=== PATIENT | male | born 1950 | race Caucasian/White ===

== ENCOUNTER 2017-05-19 02:30 | Inpatient (IN) | payer MEDICARE, SELFPAY ==
[2017-05-19] VITALS (21 sets, daily range): BP systolic 122–157; BP diastolic 81–99; PULSE 60–101; RESP 12–36; TEMP 36.4–37.2; O2SAT 75–98; BMI 26.1; BMI 25.7
--- NOTE | 2017-05-19 02:36 | EKG12_ITS ---
Test Reason : SOB Blood Pressure : / mmHG Vent. Rate : 090 BPM Atrial Rate : 090 BPM P-R Int : 220 ms QRS Dur : 096 ms QT Int : 382 ms P-R-T Axes : 059 139 024 degrees QTc Int : 467 ms Sinus rhythm with 1st degree A-V block Otherwise normal ECG Confirmed by AISHA SMALL [id number]), managing editor RADHA BAL ([id number] on 05/22/2017 1:40:07 PM Referred By: AM Confirmed By:AISHA SMALL
--- NOTE | 2017-05-19 02:41 | ED.DCSUM_ITS ---
- ER Visit Summary Date of Service: 05/19/17 Chief Complaint: [] Shortness of breath History of Present Illness: The patient is a 66 M [] complaining of shortness of breath beginning earlier tonight. Patient reports a history of COPD. Denies fevers. Denies chest pain. Denies use of home oxygen. Reports he recently underwent a cardiac catheterization that resulted in him getting no stents. Physical Examination: [] Vital signs: BP 157/95. Heart rate 101. Respiratory rate 26. Temperature 98.3. Pulse ox on room air 75%. This improved to 93 on 2 L nasal cannula. Elderly male in mild respiratory distress. Cardiovascular exam is regular rate and rhythm. Lungs show wheezing in all lung rodas. Abdomen is soft and nontender. No significant lower extremity edema. Test Results: [] EKG: Normal sinus rhythm, rate of 90. Chest x-ray: Negative per radiologist interpretation. Labs: CBC, BMP, troponin, BNP all within normal limits. Emergency Department Course and Treatment: [] Patient received 3 albuterol and one Atrovent aerosols upon arrival to the emergency department. Patient received 125 mg IV Solu-Medrol. This improved his respiratory rate however he still reported subjective dyspnea. He remained on 2 L nasal cannula after the aerosol treatments. His pulse ox stayed at 92%. He was ambulated without oxygen and dropped down to 86%. Case was discussed with the hospitalist who will admit the patient for further treatment and evaluation of COPD exacerbation. Treatment Plan: [] Admit to medical floor for COPD treatment. Disposition: [] Admit, stable. Impression: [] COPD exacerbation This note was generated with [employer] dictation software. It may contain incorrect words, spelling, and punctuation that were not noted in review of the chart prior to signing ED Disposition - Plan for ED Patient: Chief Complaint: Shortness of Breath Referrals: Jessenia Rios MD [Primary Care Provider] -
[2017-05-19] MEDS: Ipratropium/Albuterol Sulfate 3 ML AMPUL.NEB INHALATION ×6 (02:44→22:42)
[2017-05-19] MEDS: Albuterol 2.5 MG/3 ML VIAL.NEB. INHALATION ×3 (02:44→02:53)
--- NOTE | 2017-05-19 02:45 | RAD_ITS ---
STUDY: X-RAY CHEST REASON FOR EXAM: Male, 66 years old. Shortness of breath TECHNIQUE: Single frontal view COMPARISON: May 19, 2013 FINDINGS: There are chronic fibrotic changes of the lungs. There are NO acute infiltrates. There is NO pleural effusion or pneumothorax. There are calcified pleural plaque. Normal size heart. Normal mediastinum and jose. Normal visualized pulmonary arteries. Normal visualized aortic arch and descending thoracic aorta. Normal visualized thoracic spine. Normal visualized ribs, clavicles, and shoulders. There is no demonstrated abnormality of the visualized soft tissue structures of the upper abdomen. RAD/Chest 1 View (Portable) IMPRESSION: There are chronic fibrotic changes of the lungs. There are NO acute infiltrates. There is NO pleural effusion or pneumothorax. There are calcified pleural plaque. Normal size heart. Electronically Signed: Carlos Price MD at 3:36 EDT , Service support ,
[2017-05-19 02:48] LABS: Absolute Neutrophil Count 8.9 X10^3/uL (2.0-7.7); Basophil# 0.01 X10^3/uL; Basophil% 0.1 % (0-1); Hematocrit 41.6 % (40-54); Hemoglobin 12.7 g/dl (13.0-16.5); Lymphocyte % 6.7 % (19-41); Mean Corp Hgb Conc 30.5 g/gl (32-36); Mean Corpuscular Hgb 28.5 pg (27.0-32.0); Mean Corpuscular Volume 93.5 fL (80-94); Mean Platelet Vol. 10.9 fl (6.2-12.0); Monocyte# 0.74 X10^3/uL; Monocyte% 7.1 % (0-10); Neutrophil # 8.88 X10^3/uL (2.7-7.7); Neutrophil % 85.4 % (47-70); Platelet Count 201 K/mm3 (150-450); RBC Distribution Width CV 16.4 % (11.6-14.6); RBC Distribution Width SD 54.4 fl (35.1-43.9); Red Blood Count 4.45 M/mm3 (4.6-6.2); White Blood Count 10.4 K/mm3 (4.4-11.0)
[2017-05-19] MEDS: MethylPREDNISolone 125 MG/2 ML Vial IV (02:48)
[2017-05-19 02:49] LABS: POSITIVE COUNT NO; POSITIVE DIFFERENTIAL NO; POSITIVE MORPHOLOGY NO
[2017-05-19 03:08] LABS: Anion Gap 7 (5-15); BUN 22 mg/dL (7-18); BUN/Creat Ratio 22.1 RATIO (10-20); Calcium,Total 8.4 mg/dL (8.5-10.1); Chloride 96 mmol/L (98-107); EST Glomerular Filtration Rate 80 mL/min (>60); Est Glom Filt Rate - Afr Amer 97 mL/min (>60); Estimated Creatinine Clearance 71.25 ml/min; Glucose 94 mg/dL (74-106); Potassium 4.5 mmol/L (3.5-5.1); Sodium Level 135 mmol/L (136-145)
[2017-05-19 03:38] LABS: BNP,B-Type NATRIURETIC PEPTIDE 110.2 pg/mL (0-100)
--- NOTE | 2017-05-19 03:47 | PCM.HP.STD ---
Problem List (1) Chronic obstructive pulmonary disease Status: Chronic Qualifiers: COPD type: unspecified COPD Qualified Code(s): J44.9 - Chronic obstructive pulmonary disease, unspecified (2) CAD (coronary artery disease) Status: Chronic Qualifiers: Coronary Disease-Associated Artery/Lesion type: unspecified vessel or lesion type [place] vs. transplanted heart: unspecified whether [place] or transplanted heart Associated angina: angina presence unspecified Qualified Code(s): I25.10 - Atherosclerotic heart disease of [place] coronary artery without angina pectoris (3) CHF (congestive heart failure) Status: Chronic Qualifiers: Heart failure type: unspecified Heart failure chronicity: chronic Qualified Code(s): I50.9 - Heart failure, unspecified (4) Borderline type 2 diabetes mellitus Status: Chronic (5) PAF (paroxysmal atrial fibrillation) Status: Chronic (6) Acute exacerbation of chronic obstructive pulmonary disease (COPD) Status: Acute (7) Acute respiratory failure Status: Acute Qualifiers: Respiratory failure complication: hypoxia Qualified Code(s): J96.01 - Acute respiratory failure with hypoxia (8) Rheumatoid arthritis Status: Chronic Qualifiers: Rheumatoid arthritis location: unspecified site Rheumatoid factor presence: unspecified presence Qualified Code(s): M06.9 - Rheumatoid arthritis, unspecified (9) H/O asbestosis Status: Chronic History of Present Illness Date of Admission: 05/19/17 Chief Complaint: Dyspnea The patient is a 66 y/o M w/ PMHx: Chronic COPD w/ Asbestosis, CAD, CHF Unclear type, PAF, Rheumatoid Arthritis, Borderline Diabetes mellitus type II who presents to the [facility] ED on 05/19/17 with history of recent fever, chills, nausea, emesis with arthralgia, myalgia that lasted 24 hours ~ 1 week ago with improvement following but now onset over the last 2-3 days productive cough, dyspnea, wheezing, progressively worsening prior to ED presentation. In the ED work-up included T 98.3, HR 101-->97, RR 26-->32, 75% on RA initially-->93% on 2-3L NC, CBC w/ WBC 10.4, Hgb 12.7, Plts 201 with L shift, BMP w/ Na 135, Chl 96, BUN/Cr 22/1.0, glucose 94, trop 0.02, BNP 110.2, CXR with chronic changes. In the ED RR remained elevated, ABG requested per RT, given ongoing increased work of breathing, accessory muscle usage, conversational dyspnea BIPAP also requested. Viral respiratory panel pending additionally. INR ordered upon admission also. Past Medical History Past Medical History (Chronic Problems): Chronic Problems Chronic obstructive pulmonary disease (Chronic) CAD (coronary artery disease) (Chronic) CHF (congestive heart failure) (Chronic) Borderline type 2 diabetes mellitus (Chronic) PAF (paroxysmal atrial fibrillation) (Chronic) Rheumatoid arthritis (Chronic) H/O asbestosis (Chronic) Allergies No Known Allergies Allergy (Verified 05/19/17 02:31) Home Medications: Ambulatory Orders Medication Instructions Recorded Ergocalciferol [Vitamin D] 50,000 unit PO Q7D 05/19/13 Flecainide [Tambocor] 100 mg PO BID 05/19/13 Furosemide [Lasix] 40 mg PO DAILY 05/19/13 Hydroxychloroquine [Plaquenil] 200 mg PO BIDCM 05/19/13 Pantoprazole Sodium [Protonix] 40 mg PO DAILY 05/19/13 Potassium Chloride [K-Dur] 20 meq PO DAILY 05/19/13 PredniSONE 5 mg PO BID 05/19/13 Verapamil HCl [Verapamil ER] 240 mg PO DAILY 05/19/13 Warfarin [Coumadin] 4 mg PO DAILY 05/19/13 Acetaminophen [Acetaminophen ER] 650 mg PO PRN PRN 05/19/17 Albuterol IH (ProAir) [Proair Hfa 2 puff INHALATION Q4H PRN PRN 05/19/17 (SP)Vent Pts] Budesonide Inhaler 180 mcg 2 puff INHALATION BID 05/19/17 [Pulmicort Inhaler 180 mcg] Cyclobenzaprine [Flexeril] 10 mg PO TID PRN PRN 05/19/17 Flecainide [Tambocor] 50 mg PO BID 05/19/17 Gabapentin [Neurontin] 600 mg PO BIDCM 05/19/17 Warfarin [Coumadin (PBKC)] 6 mg PO QODAY 05/19/17 Surgical History: - - Notes calcium deposit removal otherwise no surgical history. Psychiatric History: No pertinent psych hx Lives: Spouse/ Significant Other Smoking Status: Former smoker - Quit~ 8 years prior, 1 ppd history prior. Tobacco Use: Non-smoker Alcohol: Rare Drugs: None - *Family History Maternal History Items: Cancer Paternal History Items: Diabetes, Pulmonary Disease Review of Systems Constitutional: Reports: Anorexia, Chills, Fever, Malaise, Weakness, Fatigue. Denies: Weight Change HEENT: Denies: Head Aches, Sinus Congestion, Sinus Drainage Cardiovascular: Denies: Chest Pain, Palpitations Respiratory: Reports: Cough, Shortness of Breath, Shortness of breath at rest, Shortness of breath upon exertion, Sputum production, Wheezing Gastrointestinal: Reports: Nausea, Vomiting. Denies: Abdominal Pain Genitourinary: Denies: Dysuria Musculoskeletal: Reports: Joint Pain, Joint stiffness, Joint swelling, Joint Tenderness, Muscle pain Skin: Denies: Rash, Wounds Neurological: Denies: Numbness, Tingling, Focal weakness Psychiatric: Denies: Anxiety, Depression, Homicidal Ideations, Suicidal Ideations Hematologic/ Lymphatic: Reports: Anemia, Easy Bruising, Easy Bleeding VTE Information - Inpt Only VTE Present on Admission: No VTE Mechan Device Prophylaxis: SCD's VTE Pharm Prophylaxis ordered?: No Reason prophylaxis not ordered:: Treatment Not Indicated Patient Problems: Active and Suspected Problems Acute exacerbation of chronic obstructive pulmonary disease (COPD) (Acute) Acute respiratory failure (Acute) Subjective: Seated upright in the ED bed, increased work of breathing, accessory muscle usage, conversational dyspnea. Objective: Physical Examination: General: awake, alert, oriented x 3 and cooperative, seated upright in the ED bed in no apparent distress. Skin: normal color, turgor, no icterus, cyanosis except diffuse BL UL extremity ecchymoses. HEENT: AT/NC, EOMI, PERRLA, mildly dry MM, no carotid bruits or JVD noted. Lungs: Diminished breath sounds, greater bases, coarse, expiratory and inspiratory wheezing, increased work of breathing, accessory muscle usage, conversational dyspnea, evidence respiratory distress. Heart: Regular rate and rhythm; no gallop, rub audible. Abdomen: soft, NTTP, ND, normal BS, no HSM. Extremities: no cyanosis, clubbing, arthritic joint disease evident. Neurological: patient awake, alert, oriented x 3; cognitive function intact; pupils equally reactive to light and accomodation; cranial nerves II-XII grossly normal, moving all 4 extremities, no focal deficits, strength severely globally decreased secondary to acute presentation. Psychiatric: affect appears fatigued, no acute evidence of depressive or anxiety feelings. - Physical Exam Vital Signs Temp Pulse Resp BP Pulse Ox 98.3 F 97 32 H 157/95 H 75 05/19/17 02:32 05/19/17 02:57 05/19/17 02:57 05/19/17 02:32 05/19/17 02:32 Oxygen Delivery Method Room Air Weight: 171 lb 15.369 oz Body Mass Index (BMI) 26.1 Laboratory Tests Past 24 Hrs 05/19/17 05/19/17 05/19/17 02:35 02:35 02:35 WBC 10.4 RBC 4.45 L Hgb 12.7 L Hct 41.6 MCV 93.5 MCH 28.5 MCHC 30.5 L RDW 16.4 H RDW Differential 54.4 H Plt Count 201 MPV 10.9 Immature Gran % (Auto) 0.700 Neut % (Auto) 85.4 H Lymph % (Auto) 6.7 L [place] % (Auto) 7.1 Eos % (Auto) 0.0 Baso % (Auto) 0.1 Absolute Neuts (auto) 8.9 H Absolute Lymphs (auto) 0.70 L Total Counted Not Reportable Sodium 135 L Potassium 4.5 Chloride 96 L Carbon Dioxide 32.0 Anion Gap 7 BUN 22 H Creatinine 1.00 Estim Creat Clear Calc 71.25 Est GFR (MDRD) Af Amer 97 Est GFR (MDRD) Non-Af 80 BUN/Creatinine Ratio 22.1 H Glucose 94 Calcium 8.4 L Troponin I 0.02 B-Natriuretic Peptide 110.2 H Assessment/Plan Active and Suspected Problems Acute exacerbation of chronic obstructive pulmonary disease (COPD) (Acute) Acute respiratory failure (Acute) The patient is a 66 y/o M w/ PMHx: Chronic COPD, CAD, CHF Unclear type, PAF, Rheumatoid Arthritis, Borderline Diabetes mellitus type II who presents to the [facility] ED on 05/19/17 with history of recent fever, chills, nausea, emesis with arthralgia, myalgia that lasted 24 hours ~ 1 week ago with improvement following but now onset over the last 2-3 days productive cough, dyspnea, wheezing, progressively worsening prior to ED presentation. (1) Acute Hypoxic Respiratory Failure with Acute on chronic COPD exacerbation: CXR w/ chronic changes, CBC on admission w/ WBC 10.4 with L shift. Will admit to MS, requested ABG in the ED, given presentation and concern for fatigue will initiate BIPAP with NC transition once appropriate, maintain on oxygen with wean as tolerated to room air, continue ATC duonebs, PRN albuterol, IV methylprednisolone with prednisone transition, HOB, IS parameters, IV Azithromcyin with pending sputum cultures, respiratory viral panel pending. (2) CAD: No PCI history. Maintain on home coumadin regimen, INR pending, not on BB but no verapamil, not on statin, unclear reason why. Recent (3) PAF: Maintain on home regimen tambocor, verapamil, coumadin w/ INR pending, trend. (4) Chronic CHF, Unclear Type: Compensated, CXR with chronic changes, maintain on coumadin, not on statin, not on ACEI/ARB, not on BB (on verapamil), lasix. (5) Borderline Diabetes mellitus type II: Admission glucose 94, given steroid usage, maintain on ADA diet, accu checks, ISS. (6) Rheumatoid Arthritis: Hold oral prednisone given IV solumedrol, continue plaquenil. (7) DVT Prophylaxis: SCDs, coumadin w/ INR trending. Code Visit Inpatient E&M: 89294 Init Hosp L3
--- NOTE | 2017-05-19 03:59 | HP.PCM_ITS ---
Problem List (1) Chronic obstructive pulmonary disease Status: Chronic Qualifiers: COPD type: unspecified COPD Qualified Code(s): J44.9 - Chronic obstructive pulmonary disease, unspecified (2) CAD (coronary artery disease) Status: Chronic Qualifiers: Coronary Disease-Associated Artery/Lesion type: unspecified vessel or lesion type [place] vs. transplanted heart: unspecified whether [place] or transplanted heart Associated angina: angina presence unspecified Qualified Code(s): I25.10 - Atherosclerotic heart disease of [place] coronary artery without angina pectoris (3) CHF (congestive heart failure) Status: Chronic Qualifiers: Heart failure type: unspecified Heart failure chronicity: chronic Qualified Code(s): I50.9 - Heart failure, unspecified (4) Borderline type 2 diabetes mellitus Status: Chronic (5) PAF (paroxysmal atrial fibrillation) Status: Chronic (6) Acute exacerbation of chronic obstructive pulmonary disease (COPD) Status: Acute (7) Acute respiratory failure Status: Acute Qualifiers: Respiratory failure complication: hypoxia Qualified Code(s): J96.01 - Acute respiratory failure with hypoxia (8) Rheumatoid arthritis Status: Chronic Qualifiers: Rheumatoid arthritis location: unspecified site Rheumatoid factor presence : unspecified presence Qualified Code(s): M06.9 - Rheumatoid arthritis, unspecified (9) H/O asbestosis Status: Chronic History of Present Illness Date of Admission: 05/19/17 Chief Complaint: Dyspnea The patient is a 66 y/o M w/ PMHx: Chronic COPD w/ Asbestosis, CAD, CHF Unclear type, PAF, Rheumatoid Arthritis, Borderline Diabetes mellitus type II who presents to the [facility] ED on 05/19/17 with history of recent fever, chills, nausea, emesis with arthralgia, myalgia that lasted 24 hours ~ 1 week ago with improvement following but now onset over the last 2-3 days productive cough, dyspnea, wheezing, progressively worsening prior to ED presentation. In the ED work-up included T 98.3, HR 101-->97, RR 26-->32, 75% on RA initially-->93% on 2 -3L NC, CBC w/ WBC 10.4, Hgb 12.7, Plts 201 with L shift, BMP w/ Na 135, Chl 96 , BUN/Cr 22/1.0, glucose 94, trop 0.02, BNP 110.2, CXR with chronic changes. In the ED RR remained elevated, ABG requested per RT, given ongoing increased work of breathing, accessory muscle usage, conversational dyspnea BIPAP also requested. Viral respiratory panel pending additionally. INR ordered upon admission also. Past Medical History Past Medical History (Chronic Problems): Chronic Problems Chronic obstructive pulmonary disease (Chronic) CAD (coronary artery disease) (Chronic) CHF (congestive heart failure) (Chronic) Borderline type 2 diabetes mellitus (Chronic) PAF (paroxysmal atrial fibrillation) (Chronic) Rheumatoid arthritis (Chronic) H/O asbestosis (Chronic) Allergies No Known Allergies Allergy (Verified 05/19/17 02:31) Home Medications: Ambulatory Orders Medication Instructions Recorded Ergocalciferol [Vitamin D] 50,000 unit PO Q7D 05/19/13 Flecainide [Tambocor] 100 mg PO BID 05/19/13 Furosemide [Lasix] 40 mg PO DAILY 05/19/13 Hydroxychloroquine [Plaquenil] 200 mg PO BIDCM 05/19/13 Pantoprazole Sodium [Protonix] 40 mg PO DAILY 05/19/13 Potassium Chloride [K-Dur] 20 meq PO DAILY 05/19/13 PredniSONE 5 mg PO BID 05/19/13 Verapamil HCl [Verapamil ER] 240 mg PO DAILY 05/19/13 Warfarin [Coumadin] 4 mg PO DAILY 05/19/13 Acetaminophen [Acetaminophen ER] 650 mg PO PRN PRN 05/19/17 Albuterol IH (ProAir) [Proair Hfa 2 puff INHALATION Q4H PRN PRN 05/19/17 (SP)Vent Pts] Budesonide Inhaler 180 mcg 2 puff INHALATION BID 05/19/17 [Pulmicort Inhaler 180 mcg] Cyclobenzaprine [Flexeril] 10 mg PO TID PRN PRN 05/19/17 Flecainide [Tambocor] 50 mg PO BID 05/19/17 Gabapentin [Neurontin] 600 mg PO BIDCM 05/19/17 Warfarin [Coumadin (PBKC)] 6 mg PO QODAY 05/19/17 Surgical History: - - Notes calcium deposit removal otherwise no surgical history. Psychiatric History: No pertinent psych hx Lives: Spouse/ Significant Other Smoking Status: Former smoker - Quit~ 8 years prior, 1 ppd history prior. Tobacco Use: Non-smoker Alcohol: Rare Drugs: None - *Family History Maternal History Items: Cancer Paternal History Items: Diabetes, Pulmonary Disease Review of Systems Constitutional: Reports: Anorexia, Chills, Fever, Malaise, Weakness, Fatigue. Denies: Weight Change HEENT: Denies: Head Aches, Sinus Congestion, Sinus Drainage Cardiovascular: Denies: Chest Pain, Palpitations Respiratory: Reports: Cough, Shortness of Breath, Shortness of breath at rest, Shortness of breath upon exertion, Sputum production, Wheezing Gastrointestinal: Reports: Nausea, Vomiting. Denies: Abdominal Pain Genitourinary: Denies: Dysuria Musculoskeletal: Reports: Joint Pain, Joint stiffness, Joint swelling, Joint Tenderness, Muscle pain Skin: Denies: Rash, Wounds Neurological: Denies: Numbness, Tingling, Focal weakness Psychiatric: Denies: Anxiety, Depression, Homicidal Ideations, Suicidal Ideations Hematologic/ Lymphatic: Reports: Anemia, Easy Bruising, Easy Bleeding VTE Information - Inpt Only VTE Present on Admission: No VTE Mechan Device Prophylaxis: SCD's VTE Pharm Prophylaxis ordered?: No Reason prophylaxis not ordered:: Treatment Not Indicated Patient Problems: Active and Suspected Problems Acute exacerbation of chronic obstructive pulmonary disease (COPD) (Acute) Acute respiratory failure (Acute) Subjective: Seated upright in the ED bed, increased work of breathing, accessory muscle usage, conversational dyspnea. Objective: Physical Examination: General: awake, alert, oriented x 3 and cooperative, seated upright in the ED bed in no apparent distress. Skin: normal color, turgor, no icterus, cyanosis except diffuse BL UL extremity ecchymoses. HEENT: AT/NC, EOMI, PERRLA, mildly dry MM, no carotid bruits or JVD noted. Lungs: Diminished breath sounds, greater bases, coarse, expiratory and inspiratory wheezing, increased work of breathing, accessory muscle usage, conversational dyspnea, evidence respiratory distress. Heart: Regular rate and rhythm; no gallop, rub audible. Abdomen: soft, NTTP, ND, normal BS, no HSM. Extremities: no cyanosis, clubbing, arthritic joint disease evident. Neurological: patient awake, alert, oriented x 3; cognitive function intact; pupils equally reactive to light and accomodation; cranial nerves II-XII grossly normal, moving all 4 extremities, no focal deficits, strength severely globally decreased secondary to acute presentation. Psychiatric: affect appears fatigued, no acute evidence of depressive or anxiety feelings. - Physical Exam Vital Signs Temp Pulse Resp BP Pulse Ox 98.3 F 97 32 H 157/95 H 75 05/19/17 02:32 05/19/17 02:57 05/19/17 02:57 05/19/17 02:32 05/19/17 02:32 Oxygen Delivery Method Room Air Weight: 171 lb 15.369 oz Body Mass Index (BMI) 26.1 Laboratory Tests Past 24 Hrs 05/19/17 05/19/17 05/19/17 02:35 02:35 02:35 WBC 10.4 RBC 4.45 L Hgb 12.7 L Hct 41.6 MCV 93.5 MCH 28.5 MCHC 30.5 L RDW 16.4 H RDW Differential 54.4 H Plt Count 201 MPV 10.9 Immature Gran % (Auto) 0.700 Neut % (Auto) 85.4 H Lymph % (Auto) 6.7 L [place] % (Auto) 7.1 Eos % (Auto) 0.0 Baso % (Auto) 0.1 Absolute Neuts (auto) 8.9 H Absolute Lymphs (auto) 0.70 L Total Counted Not Reportable Sodium 135 L Potassium 4.5 Chloride 96 L Carbon Dioxide 32.0 Anion Gap 7 BUN 22 H Creatinine 1.00 Estim Creat Clear Calc 71.25 Est GFR (MDRD) Af Amer 97 Est GFR (MDRD) Non-Af 80 BUN/Creatinine Ratio 22.1 H Glucose 94 Calcium 8.4 L Troponin I 0.02 B-Natriuretic Peptide 110.2 H Assessment/Plan Active and Suspected Problems Acute exacerbation of chronic obstructive pulmonary disease (COPD) (Acute) Acute respiratory failure (Acute) The patient is a 66 y/o M w/ PMHx: Chronic COPD, CAD, CHF Unclear type, PAF, Rheumatoid Arthritis, Borderline Diabetes mellitus type II who presents to the [facility] ED on 05/19/17 with history of recent fever, chills, nausea, emesis with arthralgia, myalgia that lasted 24 hours ~ 1 week ago with improvement following but now onset over the last 2-3 days productive cough, dyspnea, wheezing, progressively worsening prior to ED presentation. (1) Acute Hypoxic Respiratory Failure with Acute on chronic COPD exacerbation: CXR w/ chronic changes, CBC on admission w/ WBC 10.4 with L shift. Will admit to MS, requested ABG in the ED, given presentation and concern for fatigue will initiate BIPAP with NC transition once appropriate, maintain on oxygen with wean as tolerated to room air, continue ATC duonebs, PRN albuterol, IV methylprednisolone with prednisone transition, HOB, IS parameters, IV Azithromcyin with pending sputum cultures, respiratory viral panel pending. (2) CAD: No PCI history. Maintain on home coumadin regimen, INR pending, not on BB but no verapamil, not on statin, unclear reason why. Recent (3) PAF: Maintain on home regimen tambocor, verapamil, coumadin w/ INR pending, trend. (4) Chronic CHF, Unclear Type: Compensated, CXR with chronic changes, maintain on coumadin, not on statin, not on ACEI/ARB, not on BB (on verapamil), lasix. (5) Borderline Diabetes mellitus type II: Admission glucose 94, given steroid usage, maintain on ADA diet, accu checks, ISS. (6) Rheumatoid Arthritis: Hold oral prednisone given IV solumedrol, continue plaquenil. (7) DVT Prophylaxis: SCDs, coumadin w/ INR trending. Code Visit Inpatient E&M: 80325 Init Hosp L3
[2017-05-19 04:05] LABS: International Normalized Ratio 2.5; Prothrombin Time (Protime)PT. 26.9 SECONDS (11.7-14.9)
[2017-05-19 04:26] LABS: Base Excess 7 mmol/L (-2 to +2); Bicarbonate 30.9 mmol/L (22-26); Blood Gas Specimen Type ART; O2 Delivery Device Nasal Can; PO2 73 mmHG (75-100); SITE L Brachial; SO2 95 % (95-99); Total Carbon Dioxide 32 mmol/L; pCO2 44.1 mmHg (35-45); pH 7.45 (7.35-7.45)
[2017-05-19 05:16] LABS: Bedside Glucose 101 mg/dL (70-110)
[2017-05-19] MEDS: Acetaminophen 325 MG Tablet 650 MG PO ×2 (05:24→21:38)
[2017-05-19] MEDS: CLARIFY ORDER 1 EACH NOTE (06:33)
[2017-05-19] MEDS: Glucerna Shake 120 ML LIQUID PO ×2 (08:29→16:51)
[2017-05-19] MEDS: Gabapentin 300 MG Capsule 600 MG PO ×2 (08:29→16:51)
[2017-05-19] MEDS: guaiFENesin 1,200 MG Tablet 1200 MG PO ×2 (08:30→21:30)
[2017-05-19] MEDS: Hydroxychloroquine 200 MG Tablet PO ×2 (08:30→16:51)
[2017-05-19] MEDS: Furosemide 40 MG Tablet PO (08:30)
[2017-05-19] MEDS: Flecainide 100 MG Tablet PO (08:30)
[2017-05-19] MEDS: Flecainide 100 MG Tablet 50 MG PO (08:30)
[2017-05-19] MEDS: Pantoprazole Sodium 40 MG Tablet PO (08:30)
[2017-05-19] MEDS: Verapamil SR 240 MG Tablet PO (08:31)
--- NOTE | 2017-05-19 11:07 | CASEMGMT ---
KELLY VALDEZ Face to Face with patient for initial transition planning/care coordination assessment. KELLY VALDEZ introduced self and role at [facility]. Patient sitting in chair, alert and oriented. Patient willing to participate in assessment and is able to answer all questions appropriately. Care providers, pharmacy, and demographics verified. See link attached. Patient wishes to discharge home, denies need for home health at this time. Patient states that he see model and mold maker Conchita Puentes at [facility] and has an appt in 2 weeks. Patient states his preferred DME company is [employer]. KELLY VALDEZ will continue to monitor for need for home oxygen. Patient states he has no further needs or concerns at this time. CM to follow for discharge planning needs that may arise. Disposition Plan: Patient to return home with family support and follow-up plans in place.
[2017-05-19] MEDS: Oseltamivir Phosphate 75 MG Capsule PO ×2 (12:19→21:30)
[2017-05-19 12:30] LABS: Bedside Glucose 192 mg/dL (70-110)
--- NOTE | 2017-05-19 15:12 | PCM.PROGNOTE ---
Patient Problems: Active and Suspected Problems Acute exacerbation of chronic obstructive pulmonary disease (COPD) (Acute) Acute respiratory failure (Acute) Subjective: Patient is a 66-year-old male with severe rheumatoid arthritis, COPD, history of asbestosis, chronic congestive heart failure, borderline diabetes mellitus type 2, PAF and chronic anticoagulation with Warfarin who presented to the [facility] emergency department on 316 of shortness of breath associated with cough, fever/chills, nausea/vomiting and myalgias/arthralgias. The cough was productive of brownish sputum. Vital signs in the emergency were temp 98.3, heart rate 101, respiratory rate 26-32, room air pulse ox of 75% on RA. He does not wear O2 at home and he does not have EMANI. CXR showed no acute infiltrates but did show calcified pleural plaques and evidence of chronic scarring. He was admitted to the hospital with a diagnosis of acute hypoxic respiratory failure, acute exacerbation of COPD. He was placed on BiPAP and ordered pbpguw-puw-jbyir aerosols, intravenous Solu-Medrol, azithromycin. Respiratory panel was positive for influenza B. He was started on Tamiflu. He tells me that he had nausea/vomiting/diarrhea approximately 7-10 days ago. He denies sore throat, runny nose, watery eyes, muscle aches and pains in excess of his baseline. Thinks his breathing is a little better since the oxygen has been placed on him. He does not routinely wear oxygen at home. He denies sleep apnea but has not been tested and he is not currently following with a student. He is c/o severe DACOSTA today. - Physical Exam General: Alert, Oriented x3, Cooperative, No apparent distress HEENT: Atraumatic, PERRLA, Normocephalic Oral: Moist Mucosa Neck: Supple, Negative Carotid Bruits, No Nodes, Trachea Midline Lungs: No rales, Diminished, Wheezes, - - He is not tachypneic at rest but gets tachypneic and short of breath when ambulating to the bathroom. He has no conversational dyspnea at rest and no accessory muscle use. There is increased AP diameter of the chest. Cardiovascular: Regular rate, Regular Rhythm, Normal S1, Normal S2, - - Distant heart sounds Abdomen: Bowel Sounds Present, Soft, Non Tender, Non-Distended Extremities: No clubbing, No cyanosis, No edema, - - He has severe deformities of his hands secondary to rheumatoid arthritis Skin: No rashes Neurological: Cranial nerves II-XII grossly intact Psych/Mental Status: Normal Affect, Appropriate Vital Signs Temp Pulse Resp BP Pulse Ox 98.5 F 89 16 143/95 H 98 05/19/17 08:20 05/19/17 10:56 05/19/17 10:56 05/19/17 08:20 05/19/17 08:20 Oxygen Flow Rate (L/min) 2 Oxygen Delivery Method Nasal Cannula Weight: 169 lb 5.04 oz Body Mass Index (BMI) 25.7 Intake and Output for Last 24 Hours 05/17/17 05/18/17 05/19/17 23:59 23:59 23:59 Intake Total 300 / 300 Balance 300 / 300 Microbiology Past 72 Hours 05/19/17 05:35 Respiratory Panel (PCR) - Final Mucosa - Nasopharyngeal Influenzae B Laboratory Tests Past 24 Hrs 05/19/17 04:19 Specimen Type ART Sample Site L Brachial pH 7.45 Bicarbonate Actual 30.9 H POC Total CO2 32 Base Excess 7 H O2 Saturation 95 ABG pCO2 44.1 ABG pO2 73 L O2 Delivery Device Nasal Can Liter Flow 3.0 Blood Gas Notified Whom HOSP POC Glucose 05/19/17 05/19/17 12:13 05:10 POC Glucose 192 H 101 Medical Necessity - Tobacco Use Smoking Status: Former smoker Tobacco Use: Non-smoker, Cigarettes Assessment/Plan Active and Suspected Problems Acute exacerbation of chronic obstructive pulmonary disease (COPD) (Acute) Acute respiratory failure (Acute) Impressions 1. Acute respiratory failure with hypoxemia 2. Acute exacerbation of COPD 3. COPD 4. Asbestosis 5. RA 6. Suspected pulmonary fibrosis 7. PAF - on flecainide 8. Borderline DM II - Blood sugars are all less than 200 9. reported hx of CHF 10. Influenza B continue the azithromycin for 3 days Continue Solu-Medrol, cfxezp-oiq-ldrin aerosols, incentive spirometry, BiPAP anytime he is sleeping more short of breath. Does not wear oxygen at home and has not had pulmonary function tests recently or a sleep study. We will need to follow-up with pulmonary going forward. Check an echocardiogram on 05/22/2017 to evaluate the right heart. Supplemental oxygen to keep the oxygen saturation 90% or greater Suspect he will need oxygen at home but will perform ambulatory pulse ox prior to discharge Code Visit Inpatient E&M: 83769 Subs Hosp L2
--- NOTE | 2017-05-19 15:15 | PN_ITS ---
Patient Problems: Active and Suspected Problems Acute exacerbation of chronic obstructive pulmonary disease (COPD) (Acute) Acute respiratory failure (Acute) Subjective: Patient is a 66-year-old male with severe rheumatoid arthritis, COPD, history of asbestosis, chronic congestive heart failure, borderline diabetes mellitus type 2, PAF and chronic anticoagulation with Warfarin who presented to the [facility] emergency department on 316 of shortness of breath associated with cough, fever/chills, nausea/vomiting and myalgias/arthralgias. The cough was productive of brownish sputum. Vital signs in the emergency were temp 98.3, heart rate 101, respiratory rate 26-32, room air pulse ox of 75 % on RA. He does not wear O2 at home and he does not have EMANI. CXR showed no acute infiltrates but did show calcified pleural plaques and evidence of chronic scarring. He was admitted to the hospital with a diagnosis of acute hypoxic respiratory failure, acute exacerbation of COPD. He was placed on BiPAP and ordered jnaakc-ikr-dlmla aerosols, intravenous Solu-Medrol, azithromycin. Respiratory panel was positive for influenza B. He was started on Tamiflu. He tells me that he had nausea/vomiting/diarrhea approximately 7-10 days ago. He denies sore throat, runny nose, watery eyes, muscle aches and pains in excess of his baseline. Thinks his breathing is a little better since the oxygen has been placed on him. He does not routinely wear oxygen at home. 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 He is c/o severe DACOSTA today. - Physical Exam General: Alert, Oriented x3, Cooperative, No apparent distress HEENT: Atraumatic, PERRLA, Normocephalic Oral: Moist Mucosa Neck: Supple, Negative Carotid Bruits, No Nodes, Trachea Midline Lungs: No rales, Diminished, Wheezes, - - He is not tachypneic at rest but gets tachypneic and short of breath when ambulating to the bathroom. He has no conversational dyspnea at rest and no accessory muscle use. There is increased AP diameter of the chest. Cardiovascular: Regular rate, Regular Rhythm, Normal S1, Normal S2, - - Distant heart sounds Abdomen: Bowel Sounds Present, Soft, Non Tender, Non-Distended Extremities: No clubbing, No cyanosis, No edema, - - He has severe deformities of his hands secondary to rheumatoid arthritis Skin: No rashes Neurological: Cranial nerves II-XII grossly intact Psych/Mental Status: Normal Affect, Appropriate Vital Signs Temp Pulse Resp BP Pulse Ox 98.5 F 89 16 143/95 H 98 05/19/17 08:20 05/19/17 10:56 05/19/17 10:56 05/19/17 08:20 05/19/17 08:20 Oxygen Flow Rate (L/min) 2 Oxygen Delivery Method Nasal Cannula Weight: 169 lb 5.04 oz Body Mass Index (BMI) 25.7 Intake and Output for Last 24 Hours 05/17/17 05/18/17 05/19/17 23:59 23:59 23:59 Intake Total 300 / 300 Balance 300 / 300 Microbiology Past 72 Hours 05/19/17 05:35 Respiratory Panel (PCR) - Final Mucosa - Nasopharyngeal Influenzae B Laboratory Tests Past 24 Hrs 05/19/17 04:19 Specimen Type ART Sample Site L Brachial pH 7.45 Bicarbonate Actual 30.9 H POC Total CO2 32 Base Excess 7 H O2 Saturation 95 ABG pCO2 44.1 ABG pO2 73 L O2 Delivery Device Nasal Can Liter Flow 3.0 Blood Gas Notified Whom HOSP POC Glucose 05/19/17 05/19/17 12:13 05:10 POC Glucose 192 H 101 Medical Necessity - Tobacco Use Smoking Status: Former smoker Tobacco Use: Non-smoker, Cigarettes Assessment/Plan Active and Suspected Problems Acute exacerbation of chronic obstructive pulmonary disease (COPD) (Acute) Acute respiratory failure (Acute) Impressions 1. Acute respiratory failure with hypoxemia 2. Acute exacerbation of COPD 3. COPD 4. Asbestosis 5. RA 6. Suspected pulmonary fibrosis 7. PAF - on flecainide 8. Borderline DM II - Blood sugars are all less than 200 9. reported hx of CHF 10. Influenza B continue the azithromycin for 3 days Continue Solu-Medrol, czpuuk-syi-evqib aerosols, incentive spirometry, BiPAP anytime he is sleeping more short of breath. Does not wear oxygen at home and has not had pulmonary function tests recently or a sleep study. We will need to follow-up with pulmonary going forward. Check an echocardiogram on 05/22/2017 to evaluate the right heart. Supplemental oxygen to keep the oxygen saturation 90% or greater Suspect he will need oxygen at home but will perform ambulatory pulse ox prior to discharge Code Visit Inpatient E&M: [id number] Subs Hosp L2
[2017-05-19] MEDS: 0.9% NaCl Peripheral Flush Adult/Peds IV (15:28)
[2017-05-19 19:31] LABS: Bedside Glucose 144 mg/dL (70-110)
[2017-05-19 21:51] LABS: Bedside Glucose 168 mg/dL (70-110)
[2017-05-20] VITALS (18 sets, daily range): BP systolic 117–139; BP diastolic 79–87; PULSE 56–92; RESP 12–29; TEMP 36.5–36.8; O2SAT 96–100
[2017-05-20] MEDS: Ipratropium/Albuterol Sulfate 3 ML AMPUL.NEB INHALATION ×6 (02:48→23:48)
[2017-05-20 06:50] LABS: Bedside Glucose 135 mg/dL (70-110)
[2017-05-20] MEDS: Hydroxychloroquine 200 MG Tablet PO ×2 (07:59→17:14)
[2017-05-20] MEDS: Gabapentin 300 MG Capsule 600 MG PO ×2 (07:59→17:14)
[2017-05-20 09:07] LABS: Absolute Lymphocyte Count 0.23 X10^3/ul (0.83-4.51); Absolute Neutrophil Count 6.8 X10^3/uL (2.0-7.7); Hematocrit 37.6 % (40-54); Hemoglobin 11.3 g/dl (13.0-16.5); Lymphocyte # 0.23 X10^3/ul (4.0); Lymphocyte % 3.2 % (19-41); Mean Corp Hgb Conc 30.1 g/gl (32-36); Mean Corpuscular Hgb 28.1 pg (27.0-32.0); Mean Corpuscular Volume 93.5 fL (80-94); Mean Platelet Vol. 11.1 fl (6.2-12.0); Monocyte# 0.16 X10^3/uL; Monocyte% 2.2 % (0-10); Neutrophil # 6.81 X10^3/uL (2.7-7.7); Neutrophil % 94.5 % (47-70); Platelet Count 154 K/mm3 (150-450); RBC Distribution Width CV 15.8 % (11.6-14.6); RBC Distribution Width SD 54.5 fl (35.1-43.9); Red Blood Count 4.02 M/mm3 (4.6-6.2); White Blood Count 7.2 K/mm3 (4.4-11.0)
[2017-05-20 09:16] LABS: Differential Indicated SCAN CRITERIA MET; POSITIVE COUNT NO; POSITIVE DIFFERENTIAL YES; POSITIVE MORPHOLOGY NO
[2017-05-20 09:22] LABS: Anion Gap 8 (5-15); BUN 31 mg/dL (7-18); BUN/Creat Ratio 33.7 RATIO (10-20); Calcium,Total 8.1 mg/dL (8.5-10.1); Chloride 100 mmol/L (98-107); Creatinine, Serum 0.92 mg/dL (0.70-1.30); EST Glomerular Filtration Rate 87 mL/min (>60); Est Glom Filt Rate - Afr Amer 106 mL/min (>60); Estimated Creatinine Clearance 77.45 ml/min; Glucose 165 mg/dL (74-106); Potassium 4.6 mmol/L (3.5-5.1); Sodium Level 139 mmol/L (136-145)
[2017-05-20] MEDS: guaiFENesin 1,200 MG Tablet 1200 MG PO ×2 (11:13→22:15)
[2017-05-20] MEDS: Flecainide 100 MG Tablet 50 MG PO ×2 (11:13→22:15)
[2017-05-20] MEDS: 0.9% NaCl Peripheral Flush Adult/Peds IV (11:13)
[2017-05-20] MEDS: Verapamil SR 240 MG Tablet PO (11:14)
[2017-05-20] MEDS: Furosemide 40 MG Tablet PO (11:15)
[2017-05-20] MEDS: Oseltamivir Phosphate 75 MG Capsule PO ×2 (11:15→22:17)
[2017-05-20] MEDS: Pantoprazole Sodium 40 MG Tablet PO (11:15)
[2017-05-20 12:25] LABS: Bedside Glucose 160 mg/dL (70-110)
[2017-05-20] MEDS: Glucerna Shake 120 ML LIQUID PO ×2 (12:30→17:15)
--- NOTE | 2017-05-20 14:46 | PN_ITS ---
Patient Problems: Active and Suspected Problems Acute exacerbation of chronic obstructive pulmonary disease (COPD) (Acute) Acute respiratory failure (Acute) Subjective: Remains afebrile. Vital signs are stable. He is currently 100% saturated on BiPAP. He was 96% saturated on 2 L nasal cannula earlier today at rest. Still becomes significantly short of breath with even minimal exertion. Lab was personally reviewed. White blood cell count is 7.2 and the hemoglobin is 11.3 with platelets of 154,000. Electrolytes are within normal limits and the BUN is 31 with a creatinine of 0.92. Blood sugars are adequately controlled and there are no blood sugars greater than 200. Sputum culture appears to be normal respiratory adelina. He is on Tamiflu for Influenza B - Physical Exam General: Alert, Oriented x3, Cooperative, - - He is not tachypneic at rest but gets tachypneic even rolling over in bed Oral: Moist Mucosa Neck: Supple Lungs: No wheeze, Rales - in the bases - they are coarse and do not improve with deep breathing Cardiovascular: Regular rate, Regular Rhythm, Normal S1, Normal S2, No Gallop, - - distant heart sounds Abdomen: Bowel Sounds Present, Soft, Non Tender, Non-Distended Extremities: No clubbing, No cyanosis, No edema Skin: No rashes, No breakdown Musculoskeletal: - - marked deformity of the hands and the wrists due to RA Psych/Mental Status: Normal Affect, Appropriate Vital Signs Temp Pulse Resp BP Pulse Ox 98.0 F 84 21 H 118/82 H 100 05/20/17 14:01 05/20/17 14:18 05/20/17 14:18 05/20/17 14:01 05/20/17 14:01 Oxygen Flow Rate (L/min) 2 Oxygen Delivery Method Bi-pap Weight: 169 lb 5.04 oz Body Mass Index (BMI) 25.7 Intake and Output for Last 24 Hours 05/18/17 05/19/17 05/20/17 23:59 23:59 23:59 Intake Total 550 / 550 944 / 944 Balance 550 / 550 944 / 944 Microbiology Past 72 Hours 05/19/17 08:20 Gram Stain - Final Sputum, Expectorated/Coughed Respiratory Culture - Preliminary Appears to be normal respiratory adelina. Further studies to follow. 05/19/17 05:35 Respiratory Panel (PCR) - Final Mucosa - Nasopharyngeal Influenzae B Laboratory Tests Past 24 Hrs 05/20/17 05/20/17 08:40 08:40 WBC 7.2 RBC 4.02 L Hgb 11.3 L Hct 37.6 L MCV 93.5 MCH 28.1 MCHC 30.1 L RDW 15.8 H RDW Differential 54.5 H Plt Count 154 MPV 11.1 Immature Gran % (Auto) 0.100 Neut % (Auto) 94.5 H Lymph % (Auto) 3.2 L [place] % (Auto) 2.2 Eos % (Auto) 0.0 Baso % (Auto) 0.0 Absolute Neuts (auto) 6.8 Absolute Lymphs (auto) 0.23 L Total Counted Not Reportable Sodium 139 Potassium 4.6 Chloride 100 Carbon Dioxide 31.0 Anion Gap 8 BUN 31 H Creatinine 0.92 Estim Creat Clear Calc 77.45 Est GFR (MDRD) Af Amer 106 Est GFR (MDRD) Non-Af 87 BUN/Creatinine Ratio 33.7 H Glucose 165 H Calcium 8.1 L POC Glucose 05/20/17 05/20/17 05/19/17 12:23 06:36 21:36 POC Glucose 160 H 135 H 168 H 05/19/17 16:50 POC Glucose 144 H Medical Necessity - Tobacco Use Smoking Status: Former smoker Tobacco Use: Non-smoker Assessment/Plan Active and Suspected Problems Acute exacerbation of chronic obstructive pulmonary disease (COPD) (Acute) Acute respiratory failure (Acute) Impressions 1. Acute respiratory failure with hypoxemia 2. Acute exacerbation of COPD 3. COPD 4. Asbestosis 5. RA 6. Suspected pulmonary fibrosis 7. PAF - on flecainide 8. Borderline DM II - Blood sugars are all less than 200 9. reported hx of CHF 10. Influenza B continue the current treatment ambulatory pulse ox prior to DC check a BNP continue the Tamiflu Code Visit Inpatient E&M: 53013 Subs Hosp L2
[2017-05-20 17:25] LABS: Bedside Glucose 141 mg/dL (70-110)
[2017-05-20] MEDS: Acetaminophen 325 MG Tablet 650 MG PO (19:23)
[2017-05-20 22:50] LABS: Bedside Glucose 128 mg/dL (70-110)
[2017-05-21] VITALS (13 sets, daily range): BP systolic 113–134; BP diastolic 74–88; PULSE 68–82; RESP 12–26; TEMP 36.2–37.2; O2SAT 96–99
[2017-05-21] MEDS: Ipratropium/Albuterol Sulfate 3 ML AMPUL.NEB INHALATION ×6 (03:35→23:03)
[2017-05-21] MEDS: 0.9% NaCl Peripheral Flush Adult/Peds IV ×3 (06:48→15:11)
--- NOTE | 2017-05-21 07:00 | PN_ITS ---
Patient Problems: Active and Suspected Problems Acute exacerbation of chronic obstructive pulmonary disease (COPD) (Acute) Acute respiratory failure (Acute) Subjective: 66-year-old male with past medical history of severe rheumatoid arthritis, suspected interstitial lung disease/pulmonary fibrosis, COPD, CAD, accessible atrial fibrillation, history of asbestosis and chronic congestive heart failure who was admitted to the hospital with acute acute exacerbation COPD and respiratory insufficiency with hypoxemia. Not on oxygen at home. Has been told in the past he has 30% lung function. No PFT's for many years. Tested + for Influenza B. No CPAP at home. On Tamiflu. Had 3 days of Azithromycin. He has been afebrile since admission. VSS Cough is now more productive and the sputum is more clear and less yellow/brown No CP. Still c/o DACOSTA No hemoptysis and no hematuria - Physical Exam General: Alert, Oriented x3, Cooperative, No apparent distress - while at rest. Oral: Moist Mucosa, No Gingival or Mucosal Lesions/ Ulcerations Neck: Supple Lungs: Rales - in the bases, Wheezes - mild expiratory Cardiovascular: Regular rate, Regular Rhythm, Normal S1, Normal S2, No Gallop, - - no significant ectopy Abdomen: Bowel Sounds Present, Soft, Non Tender, Non-Distended Extremities: No cyanosis, No edema Skin: No rashes, No breakdown Psych/Mental Status: Normal Affect, Appropriate Vital Signs Temp Pulse Resp BP Pulse Ox 97.1 F L 71 19 H 132/88 H 97 05/21/17 04:00 05/21/17 04:00 05/21/17 04:00 05/21/17 04:00 05/21/17 04:00 Oxygen Flow Rate (L/min) 3 Oxygen Delivery Method Bi-pap Weight: 169 lb 5.04 oz Body Mass Index (BMI) 25.7 Intake and Output for Last 24 Hours 05/19/17 05/20/17 05/21/17 23:59 23:59 23:59 Intake Total 550 / 550 2444 / 2444 500 / 500 Output Total 600 / 600 300 / 300 Balance 550 / 550 1844 / 1844 200 / 200 Microbiology Past 72 Hours 05/19/17 08:20 Gram Stain - Final Sputum, Expectorated/Coughed Respiratory Culture - Preliminary Appears to be normal respiratory adelina. Further studies to follow. 05/19/17 05:35 Respiratory Panel (PCR) - Final Mucosa - Nasopharyngeal Influenzae B Laboratory Tests Past 24 Hrs 05/20/17 05/20/17 08:40 08:40 WBC 7.2 RBC 4.02 L Hgb 11.3 L Hct 37.6 L MCV 93.5 MCH 28.1 MCHC 30.1 L RDW 15.8 H RDW Differential 54.5 H Plt Count 154 MPV 11.1 Immature Gran % (Auto) 0.100 Neut % (Auto) 94.5 H Lymph % (Auto) 3.2 L [place] % (Auto) 2.2 Eos % (Auto) 0.0 Baso % (Auto) 0.0 Absolute Neuts (auto) 6.8 Absolute Lymphs (auto) 0.23 L Total Counted Not Reportable Sodium 139 Potassium 4.6 Chloride 100 Carbon Dioxide 31.0 Anion Gap 8 BUN 31 H Creatinine 0.92 Estim Creat Clear Calc 77.45 Est GFR (MDRD) Af Amer 106 Est GFR (MDRD) Non-Af 87 BUN/Creatinine Ratio 33.7 H Glucose 165 H Calcium 8.1 L POC Glucose 05/20/17 05/20/17 05/20/17 21:59 17:17 12:23 POC Glucose 128 H 141 H 160 H Medical Necessity - Tobacco Use Smoking Status: Former smoker Tobacco Use: Non-smoker Assessment/Plan Active and Suspected Problems Acute exacerbation of chronic obstructive pulmonary disease (COPD) (Acute) Acute respiratory failure (Acute) Impressions 1. Acute respiratory failure with hypoxemia 2. Acute exacerbation of COPD 3. COPD 4. Asbestosis 5. RA 6. Suspected pulmonary fibrosis 7. PAF - on flecainide 8. Borderline DM II - Blood sugars are all less than 200 9. reported hx of CHF 10. Influenza B Continue the IV steroids but decrease the frequency to Q12H continue aerosolized bronchodilators and BiPAP rests and with any time he is sleeping Will need ambulatory pulse ox prior to discharge and I suspect he is going to need home O2 Needs to follow-up with pulmonary medicine going forward for PFTs and PSG. Recheck BMP, CBC, PT/INR in a.m. DC telemetry DC Accu-Cheks. He is not requiring any significant insulin and all his blood sugars are less than 200.
[2017-05-21 07:01] LABS: Bedside Glucose 127 mg/dL (70-110)
[2017-05-21] MEDS: Glucerna Shake 120 ML LIQUID PO ×3 (08:47→16:58)
[2017-05-21] MEDS: Gabapentin 300 MG Capsule 600 MG PO ×2 (08:48→16:57)
[2017-05-21] MEDS: Hydroxychloroquine 200 MG Tablet PO ×2 (08:48→16:57)
[2017-05-21] MEDS: Furosemide 40 MG Tablet PO (10:30)
[2017-05-21] MEDS: Flecainide 100 MG Tablet 50 MG PO ×2 (10:30→22:06)
[2017-05-21] MEDS: Verapamil SR 240 MG Tablet PO (10:30)
[2017-05-21] MEDS: Pantoprazole Sodium 40 MG Tablet PO (10:31)
[2017-05-21] MEDS: Oseltamivir Phosphate 75 MG Capsule PO ×2 (10:31→22:06)
[2017-05-21] MEDS: guaiFENesin 1,200 MG Tablet 1200 MG PO ×2 (10:32→22:05)
[2017-05-21] MEDS: Acetaminophen 325 MG Tablet 650 MG PO ×2 (10:40→22:07)
[2017-05-21 12:15] LABS: Bedside Glucose 194 mg/dL (70-110)
[2017-05-21 16:45] LABS: Bedside Glucose 127 mg/dL (70-110)
[2017-05-22] VITALS (16 sets, daily range): BP systolic 120–141; BP diastolic 82–87; PULSE 59–76; RESP 12–24; TEMP 36.4–36.7; O2SAT 87–99
[2017-05-22 00:46] LABS: Bedside Glucose 148 mg/dL (70-110)
[2017-05-22] MEDS: Ipratropium/Albuterol Sulfate 3 ML AMPUL.NEB INHALATION ×5 (04:09→18:53)
[2017-05-22 06:18] LABS: Prothrombin Time (Protime)PT. 48.3 SECONDS (11.7-14.9)
[2017-05-22 06:31] LABS: Anion Gap 6 (5-15); BUN 32 mg/dL (7-18); BUN/Creat Ratio 40.9 RATIO (10-20); Calcium,Total 8.2 mg/dL (8.5-10.1); Chloride 98 mmol/L (98-107); Creatinine, Serum 0.78 mg/dL (0.70-1.30); EST Glomerular Filtration Rate 105 mL/min (>60); Est Glom Filt Rate - Afr Amer 128 mL/min (>60); Estimated Creatinine Clearance 91.35 ml/min; Glucose 128 mg/dL (74-106); Magnesium 2.4 mg/dL (1.6-2.6); Phosphorus 3.2 mg/dL (2.5-4.9); Potassium 4.6 mmol/L (3.5-5.1); Sodium Level 138 mmol/L (136-145)
[2017-05-22 06:40] LABS: Hematocrit 35.1 % (40-54); Hemoglobin 10.6 g/dl (13.0-16.5); Mean Corp Hgb Conc 30.2 g/gl (32-36); Mean Corpuscular Hgb 28.8 pg (27.0-32.0); Mean Corpuscular Volume 95.4 fL (80-94); Mean Platelet Vol. 11.5 fl (6.2-12.0); Platelet Count 140 K/mm3 (150-450); RBC Distribution Width CV 15.6 % (11.6-14.6); RBC Distribution Width SD 52.3 fl (35.1-43.9); Red Blood Count 3.68 M/mm3 (4.6-6.2); Scan Indicated on CBC? Y/N NO; White Blood Count 5.8 K/mm3 (4.4-11.0)
[2017-05-22 06:48] LABS: International Normalized Ratio 5.2
--- NOTE | 2017-05-22 06:51 | CPS ---
according to patient, patient off bipap at this time.
[2017-05-22] MEDS: Glucerna Shake 120 ML LIQUID PO ×3 (08:40→16:56)
[2017-05-22] MEDS: Hydroxychloroquine 200 MG Tablet PO ×2 (08:41→16:58)
[2017-05-22] MEDS: Gabapentin 300 MG Capsule 600 MG PO ×2 (08:41→16:58)
[2017-05-22] MEDS: Flecainide 100 MG Tablet 50 MG PO ×2 (08:41→22:11)
[2017-05-22] MEDS: Verapamil SR 240 MG Tablet PO (08:41)
[2017-05-22] MEDS: Furosemide 40 MG Tablet PO (08:42)
[2017-05-22] MEDS: Pantoprazole Sodium 40 MG Tablet PO (08:42)
--- NOTE | 2017-05-22 08:42 | CPS ---
patient doing PEP on own.
--- NOTE | 2017-05-22 09:35 | PN_ITS ---
Patient Problems: Active and Suspected Problems Acute exacerbation of chronic obstructive pulmonary disease (COPD) (Acute) Acute respiratory failure (Acute) Subjective: Chief complaint: Follow-up after admission for acute COPD exacerbation and acute respiratory failure. Patient seen and examined. No acute events overnight. He reported improvement of his shortness of breath, still complaining of cough but without any more yellow colored sputum. He did mention that he gets more short of breath upon ambulation. Denies fever chills. Denied chest pain or palpitations. He has been afebrile, heart rate and blood pressure stable, pulse ox is 96% on 2 L of oxygen. - Physical Exam General: Alert, Oriented x3, Cooperative, No apparent distress, - - Minimal shortness of breath. HEENT: Atraumatic, PERRLA Oral: Moist Mucosa, No Gingival or Mucosal Lesions/ Ulcerations Neck: Supple, No JVD, Negative Carotid Bruits, Trachea Midline, Thyroid Normal Size and Texture Lungs: No wheeze, No rales, Diminished, Rhonchi, - - Decreased breath sounds bilateral, scattered rhonchi. Cardiovascular: Regular rate, Regular Rhythm, Normal S1, Normal S2, No murmurs, PMI Normal Abdomen: Bowel Sounds Present, Soft, Non Tender, Non-Distended, No Hepato- splenomegaly Extremities: No clubbing, No cyanosis, No edema Skin: No rashes, No breakdown Lymphatic: No Cervical, Supraclavicular, or Inguinal Adenopathy Neurological: Cranial nerves II-XII grossly intact, Motor Exam 5/5 strength throughout Psych/Mental Status: Normal Affect, Appropriate Vital Signs Temp Pulse Resp BP Pulse Ox 97.9 F 73 20 H 141/87 H 99 05/22/17 08:32 05/22/17 08:32 05/22/17 08:47 05/22/17 08:32 05/22/17 08:32 Oxygen Flow Rate (L/min) 2 Oxygen Delivery Method Nasal Cannula Weight: 169 lb 5.04 oz Body Mass Index (BMI) 25.7 Intake and Output for Last 24 Hours 05/20/17 05/21/17 05/22/17 23:59 23:59 23:59 Intake Total 2444 / 2444 1800 / 1800 700 / 700 Output Total 600 / 600 600 / 600 Balance 1844 / 1844 1200 / 1200 700 / 700 Microbiology Past 72 Hours 03/16/18 08:20 Gram Stain - Final Sputum, Expectorated/Coughed Respiratory Culture - Final Presumptive C albicans 05/19/17 05:35 Respiratory Panel (PCR) - Final Mucosa - Nasopharyngeal Influenzae B Laboratory Tests Past 24 Hrs 05/22/17 05/22/17 05/22/17 05:20 05:20 05:20 WBC 5.8 RBC 3.68 L Hgb 10.6 L Hct 35.1 L MCV 95.4 H MCH 28.8 MCHC 30.2 L RDW 15.6 H RDW Differential 52.3 H Plt Count 140 L MPV 11.5 PT 48.3 H INR 5.2 H* Sodium 138 Potassium 4.6 Chloride 98 Carbon Dioxide 34.0 H Anion Gap 6 BUN 32 H Creatinine 0.78 Estim Creat Clear Calc 91.35 Est GFR (MDRD) Af Amer 128 Est GFR (MDRD) Non-Af 105 BUN/Creatinine Ratio 40.9 H Glucose 128 H Calcium 8.2 L Phosphorus 3.2 Magnesium 2.4 POC Glucose 05/21/17 05/21/17 05/21/17 21:54 16:39 12:03 POC Glucose 148 H 127 H 194 H Medical Necessity - Tobacco Use Smoking Status: Former smoker Tobacco Use: Non-smoker Assessment/Plan Active and Suspected Problems Acute exacerbation of chronic obstructive pulmonary disease (COPD) (Acute) Acute respiratory failure (Acute) This is a 66 years old male patient presented to the emergency room because of shortness of breath and he was found to have acute hypoxic respiratory failure due to acute COPD exacerbation which was triggered by influenza B in context of history of probable chronic lung disease secondary to rheumatoid arthritis and suspected obstructive sleep apnea. #1 acute hypoxic respiratory failure: Multifactorial but secondary mainly to acute COPD exacerbation and influenza B in addition to chronic lung disease/ lung fibrosis secondary to rheumatoid arthritis and asbestosis as well as suspected obstructive sleep apnea. He is on IV steroids, bronchodilators and Tamiflu. He completed 2 days of IV Zithromax. He reported slow improvement of his shortness of breath, he remained on oxygen at 2 L with pulse ox of 96%. Other vital signs are stable. Plan: Continue same treatment, pulmonology consult. #2 acute COPD exacerbation: He is on IV steroids and bronchodilators. Completed 3 days of IV Zithromax. Chest x-ray revealed chronic fibrotic changes without evidence of acute infiltrate, consolation or effusion. Plan to continue same treatment as above. #3 influenza B: He is on Tamiflu. Plan as above. #4 suspected chronic lung disease/lung fibrosis/asbestosis: Possible lung fibrosis secondary to rheumatoid arthritis as well as asbestosis. This is contributing to his acute hypoxic respiratory failure. Patient probably will need oxygen upon discharge. Plan for pulmonary consult as above. #5 suspected obstructive sleep apnea: Patient will need sleep study as outpatient. Pulmonology consulted. #6 rheumatoid arthritis: Continue Plaquenil and IV steroids. At home, he has been on prednisone for long time. #7 paroxysmal A. fib: Rate is controlled, continue flecainide for rate control. INR is 5.2, supratherapeutic. Plan to hold Coumadin tonight, repeat INR tomorrow morning. #8 CAD: Without history of cardiac interventions. Stable, no acute issues. He is not on any medications at this time. #9 DVT prophylaxis: INR is 5.2. This note was generated with [employer] dictation software. It may contain incorrect words, spelling, and punctuation that were not noted in checking the note before signing. Code Visit Inpatient E&M: 24175 Subs Hosp L2
[2017-05-22] MEDS: guaiFENesin 1,200 MG Tablet 1200 MG PO ×2 (09:44→22:12)
[2017-05-22] MEDS: Oseltamivir Phosphate 75 MG Capsule PO ×2 (09:44→22:12)
[2017-05-22] MEDS: 0.9% NaCl Peripheral Flush Adult/Peds IV (09:46)
--- NOTE | 2017-05-22 09:51 | PCM.CONS.GEN ---
Problem List (1) CAD (coronary artery disease) Status: Chronic Qualifiers: Coronary Disease-Associated Artery/Lesion type: unspecified vessel or lesion type [place] vs. transplanted heart: unspecified whether crow or transplanted heart Associated angina: angina presence unspecified Qualified Code(s): I25.10 - Atherosclerotic heart disease of crow coronary artery without angina pectoris (2) CHF (congestive heart failure) Status: Chronic Qualifiers: Heart failure type: unspecified Heart failure chronicity: chronic Qualified Code(s): I50.9 - Heart failure, unspecified (3) Borderline type 2 diabetes mellitus Status: Chronic (4) PAF (paroxysmal atrial fibrillation) Status: Chronic (5) Acute respiratory failure Status: Acute Qualifiers: Respiratory failure complication: hypoxia Qualified Code(s): J96.01 - Acute respiratory failure with hypoxia (6) Rheumatoid arthritis Status: Chronic Qualifiers: Rheumatoid arthritis location: unspecified site Rheumatoid factor presence: unspecified presence Qualified Code(s): M06.9 - Rheumatoid arthritis, unspecified (7) H/O asbestosis Status: Chronic Reason for Consult Date of Consultation: 05/22/17 Reason for Consultation: COPD exacerbation, pulmonary fibrosis secondary RA? EMANI History of Present Illness: The patient is a 66 year old M as below who presented to the ER 05/19/17 points of progressive shortness of breath for several hours prior to presentation. Patient tried taking his Symbicort inhaler and albuterol several times with no relief. He has had an increase in cough and sputum production, mostly white to yellow. Patient denies any recent sick contacts, however he has been to multiple doctors appointments and had recent heart cath 2 weeks ago at [facility], ordered by his language pathologist. He required no intervention. He denies any recent fevers, chills, chest pain, nausea, vomiting, or diarrhea. Initial vital signs blood pressure 157/95, pulse 101, RR 26, afebrile at 98.3?F, and hypoxic at 75% on room air. The patient was placed on 2 L of oxygen supplementation and improved to 93%. Patient was given aerosols and stress dose IV Solu-Medrol which subjectively improved his breathing. Patient was ambulated on room air and desaturated to 86%, it was felt he would benefit from admission. Initial blood work showed no leukocytosis, hemoglobin 12.7. INR was 2.5, patient anticoagulated secondary to possibly pulmonary hypertension? Sodium was 135 and chloride 96, BUN 22 and creatinine 1.0. BNP was 110. Troponin was negative. An ABG was drawn on 3 L of oxygen and showed a pH of 7.45, PCO2 44.1, PO2 73, and bicarb 30.9. Chest x-ray showed chronic fibrotic changes in the lungs, no acute infiltrates and no pleural effusion or pneumothorax. There were calcified pleural plaques. Blood cultures have shown no growth in 48 hours. His respiratory panel was positive for influenza B and sputum culture presumptive C albicans. He has been on BiPAP intermittently while hospitalized. Patient reports he follows with Dr. Puentes at [facility] pulmonology since November 2016. He has been on Symbicort for quite some time, uses albuterol MDI as needed. He has never required any home oxygen supplementation. He has a history of tobacco abuse and quit 8 years ago with a 25-vbrd-sasb history. 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 He has had no exposure to TB that he is aware of. He has however had exposure to asbestos, which is evidenced on his chest imaging. He is up-to-date on his colonoscopy, last one 3-4 years ago which was normal. He denies any history of hemoptysis, orthopnea, or paroxysmal nocturnal dyspnea. He does have nocturia and daytime sleepiness. He has been told he likely has sleep apnea but has never underwent formal evaluation. Patient denies previous pulmonary function tests, however we will request his records from [facility] to verify. Patient has been told he has COPD. He does have advanced rheumatoid arthritis and has been on chronic prednisone 10 mg and Plaquenil for the last 8 years. He is able to ambulate with a cane, however gets dyspneic on exertion with moderate activity. He is unable to climb a flight of stairs without stopping several times, however this is partly due to his arthritis. Past Medical History Past Medical History (Chronic Problems): Chronic Problems Chronic obstructive pulmonary disease (Chronic) CAD (coronary artery disease) (Chronic) CHF (congestive heart failure) (Chronic) Borderline type 2 diabetes mellitus (Chronic) PAF (paroxysmal atrial fibrillation) (Chronic) Rheumatoid arthritis (Chronic) H/O asbestosis (Chronic) Allergies No Known Allergies Allergy (Verified 05/19/17 02:31) Home Medications: Ambulatory Orders Medication Instructions Recorded Ergocalciferol [Vitamin D] 50,000 unit PO Q7D 05/19/13 Furosemide [Lasix] 40 mg PO DAILY 05/19/13 Hydroxychloroquine [Plaquenil] 200 mg PO BIDCM 05/19/13 Pantoprazole Sodium [Protonix] 40 mg PO DAILY 05/19/13 Potassium Chloride [K-Dur] 20 meq PO DAILY 05/19/13 PredniSONE 5 mg PO BID 05/19/13 Verapamil HCl [Verapamil ER] 240 mg PO DAILY 05/19/13 Warfarin [Coumadin] 4 mg PO [id number] 05/19/13 Acetaminophen [Acetaminophen ER] 650 mg PO PRN PRN 05/19/17 Albuterol IH (ProAir) [Proair Hfa 2 puff INHALATION Q4H PRN PRN 05/19/17 (SP)Vent Pts] Budesonide Inhaler 180 mcg 2 puff INHALATION BID 05/19/17 [Pulmicort Inhaler 180 mcg] Cyclobenzaprine [Flexeril] 10 mg PO TID PRN PRN 05/19/17 Flecainide [Tambocor] 50 mg PO BID 05/19/17 Gabapentin [Neurontin] 600 mg PO BIDCM 05/19/17 Nitroglycerin [Nitrostat] 0.4 mg SUBLINGUAL PRN PRN 05/19/17 Spironolactone [Aldactone] 25 mg PO DAILY 05/19/17 Warfarin [Coumadin (PBKC)] 6 mg PO JORDAN 05/19/17 Surgical History: - - Notes calcium deposit removal otherwise no surgical history. Psychiatric History: No pertinent psych hx Lives: Spouse/ Significant Other Smoking Status: Former smoker - 90-tssp-cdwg history Tobacco Use: Non-smoker Alcohol: Rare Drugs: None - *Family History Maternal History Items: Cancer Paternal History Items: Diabetes, Pulmonary Disease Review of Systems Constitutional: Reports: Fatigue. Denies: Anorexia, Chills, Fever, Night Sweats, Malaise, Weakness, Weight Change Eyes: Denies: Vision Change HEENT: Reports: Head Aches. Denies: Difficulty Swallowing, Nasal bleeding, Post Nasal Drip, Sore Throat Cardiovascular: Reports: Edema - Resolved. Denies: Chest Pain, Chest Tightness, Light Headedness, Orthopnea, Palpitations, Paroxysmal Noc. Dyspnea, Syncope Respiratory: Reports: Cough, Shortness of breath upon exertion, Sputum production, Wheezing. Denies: Hemoptysis, Pleuritic Pain, Shortness of breath at rest Gastrointestinal: Denies: Abdominal Pain, Constipation, Diarrhea, Dyspepsia, Hematemesis, Hematochezia, Nausea, Melena, Vomiting Genitourinary: Reports: Nocturia. Denies: Dysuria, Frequency, Hematuria Musculoskeletal: Reports: Joint Pain - Chronic, Joint stiffness, Joint swelling, Joint Tenderness Skin: Reports: Skin Changes - Hyperpigmentation all extremities Neurological: Reports: Balance problems - With arthritic changes. Denies: Change in Speech, Slurred speech, Confusion, Difficulty swallowing, Focal weakness, Numbness, Tingling, Tremor, Seizures Psychiatric: Denies: Anxiety, Depression Endocrine: Denies: Change in Body Habitus, Polydipsia, Polyuria Hematologic/ Lymphatic: Reports: Easy Bruising, Easy Bleeding, Hx of blood transfusion. Denies: Adenopathy, Hx of blood clot Patient Problems: Active and Suspected Problems Acute exacerbation of chronic obstructive pulmonary disease (COPD) (Acute) Acute respiratory failure (Acute) Subjective: Patient was seen and examined. He is lying in bed in no acute distress, no conversational dyspnea. He denies any shortness of breath or chest discomfort at this time. His cough and sputum production has improved. He denies any fever or chills, no diarrhea. Overall feeling much better. Objective: Clinical Impression(s) from Imaging Studies Chest X-Ray 05/19/17 02:45 IMPRESSION: There are chronic fibrotic changes of the lungs. There are NO acute infiltrates. There is NO pleural effusion or pneumothorax. There are calcified pleural plaque. Normal size heart. Electronically Signed: Carlos Price MD at 3:36 EDT , Service support , - Physical Exam General: Alert, Oriented x3, Cooperative, No apparent distress, Well developed, Well nourished, - - No conversational dyspnea HEENT: Atraumatic, Normocephalic Oral: Moist Mucosa, No Gingival or Mucosal Lesions/ Ulcerations, - - Edentulous Neck: Supple, No JVD, No Nodes, Trachea Midline Lungs: - - Diminished with coarse rhonchi throughout, bibasilar Rales Cardiovascular: Regular rate, Regular Rhythm, Normal S1, Normal S2, No murmurs, No rub noted, No Gallop, - - Distant heart sounds Abdomen: Bowel Sounds Present, Soft, Non Tender, Non-Distended, No Hepato-splenomegaly Extremities: No clubbing, No cyanosis, No edema, No Calf Tenderness, - - Extensive deformity to bilateral hands secondary to rheumatoid. Chronic venous stasis changes Skin: No rashes, No breakdown, - - Dermal atrophy Musculoskeletal: Arthritic Changes Lymphatic: No Cervical, Supraclavicular, or Inguinal Adenopathy Neurological: Cranial nerves II-XII grossly intact, Neuro grossly intact, Motor Exam 5/5 strength throughout Psych/Mental Status: Alert and oriented to time, place, person, mood and affect Vital Signs Temp Pulse Resp BP Pulse Ox 97.9 F 73 20 H 141/87 H 99 05/22/17 08:32 05/22/17 08:32 05/22/17 08:47 05/22/17 08:32 05/22/17 08:32 Oxygen Flow Rate (L/min) 2 Oxygen Delivery Method Nasal Cannula Weight: 169 lb 5.04 oz Body Mass Index (BMI) 25.7 Intake and Output for Last 24 Hours 05/20/17 05/21/17 05/22/17 23:59 23:59 23:59 Intake Total 2444 / 2444 1800 / 1800 700 / 700 Output Total 600 / 600 600 / 600 Balance 1844 / 1844 1200 / 1200 700 / 700 Microbiology Past 72 Hours 05/19/17 08:20 Gram Stain - Final Sputum, Expectorated/Coughed Respiratory Culture - Final Presumptive C albicans 05/19/17 05:35 Respiratory Panel (PCR) - Final Mucosa - Nasopharyngeal Influenzae B Laboratory Tests Past 24 Hrs 05/22/17 05/22/17 05/22/17 05:20 05:20 05:20 WBC 5.8 RBC 3.68 L Hgb 10.6 L Hct 35.1 L MCV 95.4 H MCH 28.8 MCHC 30.2 L RDW 15.6 H RDW Differential 52.3 H Plt Count 140 L MPV 11.5 PT 48.3 H INR 5.2 H* Sodium 138 Potassium 4.6 Chloride 98 Carbon Dioxide 34.0 H Anion Gap 6 BUN 32 H Creatinine 0.78 Estim Creat Clear Calc 91.35 Est GFR (MDRD) Af Amer 128 Est GFR (MDRD) Non-Af 105 BUN/Creatinine Ratio 40.9 H Glucose 128 H Calcium 8.2 L Phosphorus 3.2 Magnesium 2.4 POC Glucose 05/21/17 05/21/17 05/21/17 21:54 16:39 12:03 POC Glucose 148 H 127 H 194 H Assessment/Plan Active and Suspected Problems Acute exacerbation of chronic obstructive pulmonary disease (COPD) (Acute) Acute respiratory failure (Acute) RECOMMENDATIONS 1. Wean oxygen supplementation to keep saturations 88-92%. 2. Encourage incentive spirometer 3. Increase activity as tolerated, continue PT/OT 4. Continue aerosols as ordered, will hold off on Pulmicort since on systemic steroids 5. Continue Tamiflu 6. Continue IV steroids today, may be able to transition to prednisone tomorrow depending upon improvement 7. Patient will require ambulatory pulse ox prior to discharge 8. Please schedule follow-up appointment in 2 weeks with [facility] in pulmonary clinic, at which time necessary testing can be ordered IMPRESSIONS 1. Acute hypoxic respiratory failure secondary to influenza B Hypoxia improved, patient now maintaining appropriate saturations on 2 L oxygen supplementation. Never has required any home oxygen, did have recent walking oximetry as an outpatient per patient report. Patient has been placed on BiPAP at night and with naps, also as needed and reports significant improvement in his breathing with use. Please perform walking oximetry prior to discharge to assess for exertional hypoxia. Wean oxygen supplementation to keep saturations 88-92% to prevent paradoxical CO2 retention. Continue supportive care with Tamiflu, oral fluids, increase in activity as tolerated. Encourage incentive spirometer. Patient has remained afebrile with no leukocytosis, antibiotics likely not indicated at this time. Patient can likely be transitioned to oral steroids tomorrow, depending upon hospitalization course. 2. Suspected COPD/sleep apnea Patient follows with [facility] pulmonology since November 2016. Is currently on Symbicort and albuterol inhalers at home. Denies previous pulmonary function tests, however I suspect he may have had these performed at [facility]. Will request records. Patient denies previous polysomnogram, would be beneficial to obtain these tests after patient is discharged. He can follow-up in the pulmonary clinic in 2 weeks. 3. Paroxysmal atrial fibrillation/rheumatoid arthritis/type II DM/CHF/CAD/pulmonary fibrosis/asbestosis Complicates care, management, recovery, and prognosis. Patient can resume baseline prednisone therapy after taper at discharge. Requested records from [facility] pulmonology. Thank you for the opportunity to participate in this patient's care, please do not hesitate contact us with any further questions or concerns. This note was generated with [employer] dictation software. It may contain incorrect words, spelling, and punctuation that were not noted in checking the note before signing.
--- NOTE | 2017-05-22 10:04 | CON.PCM_ITS ---
Problem List (1) CAD (coronary artery disease) Status: Chronic Qualifiers: Coronary Disease-Associated Artery/Lesion type: unspecified vessel or lesion type [place] vs. transplanted heart: unspecified whether tribe or transplanted heart Associated angina: angina presence unspecified Qualified Code(s): I25.10 - Atherosclerotic heart disease of tribe coronary artery without angina pectoris (2) CHF (congestive heart failure) Status: Chronic Qualifiers: Heart failure type: unspecified Heart failure chronicity: chronic Qualified Code(s): I50.9 - Heart failure, unspecified (3) Borderline type 2 diabetes mellitus Status: Chronic (4) PAF (paroxysmal atrial fibrillation) Status: Chronic (5) Acute respiratory failure Status: Acute Qualifiers: Respiratory failure complication: hypoxia Qualified Code(s): J96.01 - Acute respiratory failure with hypoxia (6) Rheumatoid arthritis Status: Chronic Qualifiers: Rheumatoid arthritis location: unspecified site Rheumatoid factor presence : unspecified presence Qualified Code(s): M06.9 - Rheumatoid arthritis, unspecified (7) H/O asbestosis Status: Chronic Reason for Consult Date of Consultation: 05/22/17 Reason for Consultation: COPD exacerbation, pulmonary fibrosis secondary RA? EMANI History of Present Illness: The patient is a 66 year old M as below who presented to the ER 05/19/17 points of progressive shortness of breath for several hours prior to presentation. Patient tried taking his Symbicort inhaler and albuterol several times with no relief. He has had an increase in cough and sputum production, mostly white to yellow. Patient denies any recent sick contacts, however he has been to multiple doctors appointments and had recent heart cath 2 weeks ago at [facility], ordered by his manager of distribution. He required no intervention. He denies any recent fevers, chills, chest pain, nausea, vomiting, or diarrhea. Initial vital signs blood pressure 157/95, pulse 101, RR 26, afebrile at 98.3? F, and hypoxic at 75% on room air. The patient was placed on 2 L of oxygen supplementation and improved to 93%. Patient was given aerosols and stress dose IV Solu-Medrol which subjectively improved his breathing. Patient was ambulated on room air and desaturated to 86%, it was felt he would benefit from admission. Initial blood work showed no leukocytosis, hemoglobin 12.7. INR was 2.5, patient anticoagulated secondary to possibly pulmonary hypertension? Sodium was 135 and chloride 96, BUN 22 and creatinine 1.0. BNP was 110. Troponin was negative. An ABG was drawn on 3 L of oxygen and showed a pH of 7.45, PCO2 44.1, PO2 73, and bicarb 30.9. Chest x-ray showed chronic fibrotic changes in the lungs, no acute infiltrates and no pleural effusion or pneumothorax. There were calcified pleural plaques. Blood cultures have shown no growth in 48 hours. His respiratory panel was positive for influenza B and sputum culture presumptive C albicans. He has been on BiPAP intermittently while hospitalized. Patient reports he follows with Dr. Puentes at [facility] pulmonology since November 2016. He has been on Symbicort for quite some time, uses albuterol MDI as needed. He has never required any home oxygen supplementation. He has a history of tobacco abuse and quit 8 years ago with a [id number] history. 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 He has had no exposure to TB that he is aware of. He has however had exposure to asbestos, which is evidenced on his chest imaging. He is up-to-date on his colonoscopy, last one 3-4 years ago which was normal. He denies any history of hemoptysis, orthopnea, or paroxysmal nocturnal dyspnea. He does have nocturia and daytime sleepiness. He has been told he likely has sleep apnea but has never underwent formal evaluation. Patient denies previous pulmonary function tests, however we will request his records from [facility] to verify. Patient has been told he has COPD. He does have advanced rheumatoid arthritis and has been on chronic prednisone 10 mg and Plaquenil for the last 8 years. He is able to ambulate with a cane, however gets dyspneic on exertion with moderate activity. He is unable to climb a flight of stairs without stopping several times, however this is partly due to his arthritis. Past Medical History Past Medical History (Chronic Problems): Chronic Problems Chronic obstructive pulmonary disease (Chronic) CAD (coronary artery disease) (Chronic) CHF (congestive heart failure) (Chronic) Borderline type 2 diabetes mellitus (Chronic) PAF (paroxysmal atrial fibrillation) (Chronic) Rheumatoid arthritis (Chronic) H/O asbestosis (Chronic) Allergies No Known Allergies Allergy (Verified 05/19/17 02:31) Home Medications: Ambulatory Orders Medication Instructions Recorded Ergocalciferol [Vitamin D] 50,000 unit PO Q7D 05/19/13 Furosemide [Lasix] 40 mg PO DAILY 05/19/13 Hydroxychloroquine [Plaquenil] 200 mg PO BIDCM 05/19/13 Pantoprazole Sodium [Protonix] 40 mg PO DAILY 05/19/13 Potassium Chloride [K-Dur] 20 meq PO DAILY 05/19/13 PredniSONE 5 mg PO BID 05/19/13 Verapamil HCl [Verapamil ER] 240 mg PO DAILY 05/19/13 Warfarin [Coumadin] 4 mg PO MOTUWETHFRSA 05/19/13 Acetaminophen [Acetaminophen ER] 650 mg PO PRN PRN 05/19/17 Albuterol IH (ProAir) [Proair Hfa 2 puff INHALATION Q4H PRN PRN 05/19/17 (SP)Vent Pts] Budesonide Inhaler 180 mcg 2 puff INHALATION BID 05/19/17 [Pulmicort Inhaler 180 mcg] Cyclobenzaprine [Flexeril] 10 mg PO TID PRN PRN 05/19/17 Flecainide [Tambocor] 50 mg PO BID 05/19/17 Gabapentin [Neurontin] 600 mg PO BIDCM 05/19/17 Nitroglycerin [Nitrostat] 0.4 mg SUBLINGUAL PRN PRN 05/19/17 Spironolactone [Aldactone] 25 mg PO DAILY 05/19/17 Warfarin [Coumadin (PBKC)] 6 mg PO JORDAN 05/19/17 Surgical History: - - Notes calcium deposit removal otherwise no surgical history. Psychiatric History: No pertinent psych hx Lives: Spouse/ Significant Other Smoking Status: Former smoker - [id number] history Tobacco Use: Non-smoker Alcohol: Rare Drugs: None - *Family History Maternal History Items: Cancer Paternal History Items: Diabetes, Pulmonary Disease Review of Systems Constitutional: Reports: Fatigue. Denies: Anorexia, Chills, Fever, Night Sweats , Malaise, Weakness, Weight Change Eyes: Denies: Vision Change HEENT: Reports: Head Aches. Denies: Difficulty Swallowing, Nasal bleeding, Post Nasal Drip, Sore Throat Cardiovascular: Reports: Edema - Resolved. Denies: Chest Pain, Chest Tightness , Light Headedness, Orthopnea, Palpitations, Paroxysmal Noc. Dyspnea, Syncope Respiratory: Reports: Cough, Shortness of breath upon exertion, Sputum production, Wheezing. Denies: Hemoptysis, Pleuritic Pain, Shortness of breath at rest Gastrointestinal: Denies: Abdominal Pain, Constipation, Diarrhea, Dyspepsia, Hematemesis, Hematochezia, Nausea, Melena, Vomiting Genitourinary: Reports: Nocturia. Denies: Dysuria, Frequency, Hematuria Musculoskeletal: Reports: Joint Pain - Chronic, Joint stiffness, Joint swelling , Joint Tenderness Skin: Reports: Skin Changes - Hyperpigmentation all extremities Neurological: Reports: Balance problems - With arthritic changes. Denies: Change in Speech, Slurred speech, Confusion, Difficulty swallowing, Focal weakness, Numbness, Tingling, Tremor, Seizures Psychiatric: Denies: Anxiety, Depression Endocrine: Denies: Change in Body Habitus, Polydipsia, Polyuria Hematologic/ Lymphatic: Reports: Easy Bruising, Easy Bleeding, Hx of blood transfusion. Denies: Adenopathy, Hx of blood clot Patient Problems: Active and Suspected Problems Acute exacerbation of chronic obstructive pulmonary disease (COPD) (Acute) Acute respiratory failure (Acute) Subjective: Patient was seen and examined. He is lying in bed in no acute distress, no conversational dyspnea. He denies any shortness of breath or chest discomfort at this time. His cough and sputum production has improved. He denies any fever or chills, no diarrhea. Overall feeling much better. Objective: Clinical Impression(s) from Imaging Studies Chest X-Ray 05/19/17 02:45 IMPRESSION: There are chronic fibrotic changes of the lungs. There are NO acute infiltrates. There is NO pleural effusion or pneumothorax. There are calcified pleural plaque. Normal size heart. Electronically Signed: Carlos Price MD at 3:36 EDT , Service support , - Physical Exam General: Alert, Oriented x3, Cooperative, No apparent distress, Well developed, Well nourished, - - No conversational dyspnea HEENT: Atraumatic, Normocephalic Oral: Moist Mucosa, No Gingival or Mucosal Lesions/ Ulcerations, - - Edentulous Neck: Supple, No JVD, No Nodes, Trachea Midline Lungs: - - Diminished with coarse rhonchi throughout, bibasilar Rales Cardiovascular: Regular rate, Regular Rhythm, Normal S1, Normal S2, No murmurs, No rub noted, No Gallop, - - Distant heart sounds Abdomen: Bowel Sounds Present, Soft, Non Tender, Non-Distended, No Hepato- splenomegaly Extremities: No clubbing, No cyanosis, No edema, No Calf Tenderness, - - Extensive deformity to bilateral hands secondary to rheumatoid. Chronic venous stasis changes Skin: No rashes, No breakdown, - - Dermal atrophy Musculoskeletal: Arthritic Changes Lymphatic: No Cervical, Supraclavicular, or Inguinal Adenopathy Neurological: Cranial nerves II-XII grossly intact, Neuro grossly intact, Motor Exam 5/5 strength throughout Psych/Mental Status: Alert and oriented to time, place, person, mood and affect Vital Signs Temp Pulse Resp BP Pulse Ox 97.9 F 73 20 H 141/87 H 99 05/22/17 08:32 05/22/17 08:32 05/22/17 08:47 05/22/17 08:32 05/22/17 08:32 Oxygen Flow Rate (L/min) 2 Oxygen Delivery Method Nasal Cannula Weight: 169 lb 5.04 oz Body Mass Index (BMI) 25.7 Intake and Output for Last 24 Hours 05/20/17 05/21/17 05/22/17 23:59 23:59 23:59 Intake Total 2444 / 2444 1800 / 1800 700 / 700 Output Total 600 / 600 600 / 600 Balance 1844 / 1844 1200 / 1200 700 / 700 Microbiology Past 72 Hours 05/19/17 08:20 Gram Stain - Final Sputum, Expectorated/Coughed Respiratory Culture - Final Presumptive C albicans 05/19/17 05:35 Respiratory Panel (PCR) - Final Mucosa - Nasopharyngeal Influenzae B Laboratory Tests Past 24 Hrs 05/22/17 05/22/17 05/22/17 05:20 05:20 05:20 WBC 5.8 RBC 3.68 L Hgb 10.6 L Hct 35.1 L MCV 95.4 H MCH 28.8 MCHC 30.2 L RDW 15.6 H RDW Differential 52.3 H Plt Count 140 L MPV 11.5 PT 48.3 H INR 5.2 H* Sodium 138 Potassium 4.6 Chloride 98 Carbon Dioxide 34.0 H Anion Gap 6 BUN 32 H Creatinine 0.78 Estim Creat Clear Calc 91.35 Est GFR (MDRD) Af Amer 128 Est GFR (MDRD) Non-Af 105 BUN/Creatinine Ratio 40.9 H Glucose 128 H Calcium 8.2 L Phosphorus 3.2 Magnesium 2.4 POC Glucose 05/21/17 05/21/17 05/21/17 21:54 16:39 12:03 POC Glucose 148 H 127 H 194 H Assessment/Plan Active and Suspected Problems Acute exacerbation of chronic obstructive pulmonary disease (COPD) (Acute) Acute respiratory failure (Acute) RECOMMENDATIONS 1. Wean oxygen supplementation to keep saturations 88-92%. 2. Encourage incentive spirometer 3. Increase activity as tolerated, continue PT/OT 4. Continue aerosols as ordered, will hold off on Pulmicort since on systemic steroids 5. Continue Tamiflu 6. Continue IV steroids today, may be able to transition to prednisone tomorrow depending upon improvement 7. Patient will require ambulatory pulse ox prior to discharge 8. Please schedule follow-up appointment in 2 weeks with BIBLICAL LANGUAGES PROFESSOR in pulmonary clinic , at which time necessary testing can be ordered IMPRESSIONS 1. Acute hypoxic respiratory failure secondary to influenza B Hypoxia improved, patient now maintaining appropriate saturations on 2 L oxygen supplementation. Never has required any home oxygen, did have recent walking oximetry as an outpatient per patient report. Patient has been placed on BiPAP at night and with naps, also as needed and reports significant improvement in his breathing with use. Please perform walking oximetry prior to discharge to assess for exertional hypoxia. Wean oxygen supplementation to keep saturations 88-92% to prevent paradoxical CO2 retention. Continue supportive care with Tamiflu, oral fluids, increase in activity as tolerated. Encourage incentive spirometer. Patient has remained afebrile with no leukocytosis, antibiotics likely not indicated at this time. Patient can likely be transitioned to oral steroids tomorrow, depending upon hospitalization course. 2. Suspected COPD/sleep apnea Patient follows with [facility] pulmonology since November 2016. Is currently on Symbicort and albuterol inhalers at home. Denies previous pulmonary function tests, however I suspect he may have had these performed at [facility]. Will request records. Patient denies previous polysomnogram, would be beneficial to obtain these tests after patient is discharged. He can follow-up in the pulmonary clinic in 2 weeks. 3. Paroxysmal atrial fibrillation/rheumatoid arthritis/type II DM/CHF/CAD/ pulmonary fibrosis/asbestosis Complicates care, management, recovery, and prognosis. Patient can resume baseline prednisone therapy after taper at discharge. Requested records from [facility] pulmonology. Thank you for the opportunity to participate in this patient's care, please do not hesitate contact us with any further questions or concerns. This note was generated with [employer] dictation software. It may contain incorrect words, spelling, and punctuation that were not noted in checking the note before signing.
--- NOTE | 2017-05-22 10:52 | NURSING ---
RESTING W/O O2, PT WAS 96%, BUT UPON AMBULATING PT P.O. DROPPED TO 87% ON RA AND TOOK APPROX. 1.5MIN TO RISE BACK UP TO ADEQUATE LEVEL. WEARING 2L O2, SATS WERE 96% AT REST AND 98% WHEN AMBULATING.
[2017-05-23] VITALS (9 sets, daily range): BP systolic 110–136; BP diastolic 65–94; PULSE 67–79; RESP 12–20; TEMP 36.6–36.9; O2SAT 96–99
--- NOTE | 2017-05-23 02:08 | CPS ---
Pt stated that he didnt feel like he was getting enough air. Bilevel pressures were increased to 12/6 cmH2O for pt comfort.
[2017-05-23 06:56] LABS: Prothrombin Time (Protime)PT. 43.3 SECONDS (11.7-14.9)
[2017-05-23 07:02] LABS: International Normalized Ratio 4.5
[2017-05-23] MEDS: Ipratropium/Albuterol Sulfate 3 ML AMPUL.NEB INHALATION ×3 (07:29→15:10)
[2017-05-23] MEDS: Glucerna Shake 120 ML LIQUID PO ×2 (08:45→12:29)
[2017-05-23] MEDS: Gabapentin 300 MG Capsule 600 MG PO (08:46)
[2017-05-23] MEDS: guaiFENesin 1,200 MG Tablet 1200 MG PO (08:46)
[2017-05-23] MEDS: Verapamil SR 240 MG Tablet PO (08:46)
[2017-05-23] MEDS: Pantoprazole Sodium 40 MG Tablet PO (08:46)
[2017-05-23] MEDS: Hydroxychloroquine 200 MG Tablet PO (08:46)
[2017-05-23] MEDS: Furosemide 40 MG Tablet PO (08:46)
[2017-05-23] MEDS: Flecainide 100 MG Tablet 50 MG PO (08:47)
[2017-05-23] MEDS: Oseltamivir Phosphate 75 MG Capsule PO (08:47)
[2017-05-23] MEDS: 0.9% NaCl Peripheral Flush Adult/Peds IV (08:48)
--- NOTE | 2017-05-23 11:00 | CASEMGMT ---
KELLY VALDEZ received update that patient qualified for home oxygen. Script obtained and referral sent to [facility]. KELLY VALDEZ requested portable tank be delivered to hospital. Patient also requesting HHC. Referral sent to [facility] and am awaiting call back.
--- NOTE | 2017-05-23 11:25 | PCM.PROGNOTE ---
Patient Problems: Active and Suspected Problems Acute exacerbation of chronic obstructive pulmonary disease (COPD) (Acute) Acute respiratory failure (Acute) Subjective: The patient was seen and examined. He just returned from the bathroom and is mildly short of breath. States he typically recovers within a few minutes. His cough has improved, occurs mostly with deep inspiration. Denies any fever or chills. Objective: Recent lab and culture data reviewed. Patient positive for influenza B on his respiratory viral panel. Blood culture showing no growth x48 hr. respiratory culture showing presumptive C albicans, likely normal adelina. INR improved but still supratherapeutic at 4.5. - Physical Exam General: Alert, Oriented x3, Cooperative, - - Mild conversational dyspnea after ambulation to the bathroom HEENT: Atraumatic, Normocephalic Oral: Moist Mucosa Neck: Supple, No Nodes, Trachea Midline Lungs: No rales, Diminished, - - Scattered rhonchi, minimal expiratory wheeze Cardiovascular: Regular rate, Regular Rhythm, Normal S1, Normal S2, No murmurs Abdomen: Bowel Sounds Present, Soft, Non Tender, Non-Distended Extremities: No clubbing, No cyanosis, No edema, - - deformities hands-rheumatoid Skin: No rashes, No breakdown Musculoskeletal: Arthritic Changes Lymphatic: - - no adenopathy Neurological: Cranial nerves II-XII grossly intact, Deep Tendon Reflexes 2+/4 and Symmetrical, Motor Exam 5/5 strength throughout Psych/Mental Status: Alert and oriented to time, place, person, mood and affect Vital Signs Temp Pulse Resp BP Pulse Ox 98.4 F 74 20 H 131/89 H 99 05/23/17 08:00 05/23/17 08:00 05/23/17 08:00 05/23/17 08:00 05/23/17 08:00 Oxygen Flow Rate (L/min) 2 Oxygen Delivery Method Nasal Cannula Weight: 169 lb 5.04 oz Body Mass Index (BMI) 25.7 Intake and Output for Last 24 Hours 05/21/17 05/22/17 05/23/17 23:59 23:59 23:59 Intake Total 1800 / 1800 700 / 700 900 / 900 Output Total 600 / 600 300 / 300 Balance 1200 / 1200 700 / 700 600 / 600 Microbiology Past 72 Hours 05/19/17 08:20 Gram Stain - Final Sputum, Expectorated/Coughed Respiratory Culture - Final Presumptive C albicans Laboratory Tests Past 24 Hrs 05/23/17 06:00 PT 43.3 H INR 4.5 H* Medical Necessity - Tobacco Use Smoking Status: Former smoker Tobacco Use: Non-smoker Assessment/Plan Active and Suspected Problems Acute exacerbation of chronic obstructive pulmonary disease (COPD) (Acute) Acute respiratory failure (Acute) RECOMMENDATIONS 1. Wean oxygen supplementation to keep saturations 88-92%. 2. Encourage incentive spirometer 3. Increase activity as tolerated, continue PT/OT 4. Continue aerosols as ordered, will hold off on Pulmicort since on systemic steroids 5. Continue Tamiflu 6. Continue oral steroids with 12-day taper at d/c 7. Ambulatory pulse oximetry indicates need for supplemental oxygen, case management assisting 8. Please schedule follow-up appointment in 2 weeks with DIRECTOR OF PUBLIC SAFETY in pulmonary clinic, at which time necessary testing can be ordered IMPRESSIONS 1. Acute hypoxic respiratory failure secondary to influenza B Hypoxia improved, patient now maintaining appropriate saturations on 2 L oxygen supplementation. Never has required any home oxygen, did have recent walking oximetry as an outpatient per patient report. Patient has been placed on BiPAP at night and with naps, also as needed and reports significant improvement in his breathing with use. Wean oxygen supplementation to keep saturations 88-92% to prevent paradoxical CO2 retention. Continue supportive care with Tamiflu, oral fluids, increase activity as tolerated. Encourage incentive spirometer. Patient has remained afebrile with no leukocytosis, antibiotics likely not indicated at this time. Transition to oral steroids with 12 day taper at discharge. The patient will follow up in the pulmonary clinic in 2 weeks with DIRECTOR OF PUBLIC SAFETY. 2. Suspected COPD/sleep apnea Patient follows with [facility] since November 2016. Is currently on Symbicort and albuterol inhalers at home. Denies previous pulmonary function tests, however I suspect he may have had these performed at [facility]. We received her records from the pulmonary and cardiology clinics, however no pulmonary function test results. Patient denies previous polysomnogram, would be beneficial to obtain these tests after patient is discharged. He can follow-up in the pulmonary clinic in 2 weeks. Continue Symbicort and albuterol upon discharge. 3. Paroxysmal atrial fibrillation/rheumatoid arthritis/type II DM/CHF/CAD/pulmonary fibrosis/asbestosis Complicates care, management, recovery, and prognosis. Patient can resume baseline prednisone therapy after taper at discharge. Requested records from [facility] pulmonology. Thank you for the opportunity to participate in this patient's care, please do not hesitate contact us with any further questions or concerns. This note was generated with [employer] dictation software. It may contain incorrect words, spelling, and punctuation that were not noted in checking the note before signing.
--- NOTE | 2017-05-23 11:53 | PCM.DC ---
- Discharge Diagnoses Current Active Problems: Current Active and Chronic Problems Chronic obstructive pulmonary disease (Chronic) CAD (coronary artery disease) (Chronic) CHF (congestive heart failure) (Chronic) Borderline type 2 diabetes mellitus (Chronic) PAF (paroxysmal atrial fibrillation) (Chronic) Acute exacerbation of chronic obstructive pulmonary disease (COPD) (Acute) Acute respiratory failure (Acute) Rheumatoid arthritis (Chronic) H/O asbestosis (Chronic) You will use the following diet at home:: Cardiac Your food should be the consistency of: Regular Discharge Activity: Return to Normal Activity Weight Bearing Status: Weight bearing as tolerated Call your doctor if you observe: Fever of 101 or Higher, Shortness of breath, Dizziness, Fainting spells, Chest pain, Increased palpitations (irregular heartbeat), Uncontrolled pain Instructions: Discharge Instructions: COPD, Discharge Instructions: Taking Bronchodilators, Discharge Instructions: Using Oxygen at Home, Using a Nebulizer (Adult), Ipratropium [place] Nebulizer solution Allergies/Adverse Reactions: Allergies No Known Allergies Allergy (Verified 05/19/17 02:31) Medications to take at Discharge Ergocalciferol [Vitamin D] 50,000 unit PO Q7D 05/19/13 Furosemide [Lasix] 40 mg PO DAILY 05/19/13 Hydroxychloroquine [Plaquenil] 200 mg PO BIDCM 05/19/13 Pantoprazole Sodium [Protonix] 40 mg PO DAILY 05/19/13 Potassium Chloride [K-Dur] 20 meq PO DAILY 05/19/13 PredniSONE 5 mg PO BID 05/19/13 Verapamil HCl [Verapamil ER] 240 mg PO DAILY 05/19/13 Warfarin [Coumadin] 4 mg PO MOTUWETHFRSA 05/19/13 Acetaminophen [Acetaminophen ER] 650 mg PO PRN PRN 05/19/17 Albuterol IH (ProAir) [Proair Hfa] 2 puff INHALATION Q4H PRN PRN 05/19/17 Budesonide Inhaler 180 mcg [Pulmicort Inhaler 180 mcg] 2 puff INHALATION BID 05/19/17 Cyclobenzaprine [Flexeril] 10 mg PO TID PRN PRN 05/19/17 Flecainide [Tambocor] 50 mg PO BID 05/19/17 Gabapentin [Neurontin] 600 mg PO BIDCM 05/19/17 Nitroglycerin [Nitrostat] 0.4 mg SUBLINGUAL PRN PRN 05/19/17 Spironolactone [Aldactone] 25 mg PO DAILY 05/19/17 Warfarin [Coumadin] 6 mg PO JORDAN 05/19/17 Ipratropium/Albuterol Sulfate [Duoneb] 3 ml INHALATION Q8H #30 ampul.neb 05/23/17 Prednisone 40 mg PO DAILY #30 tab 05/23/17 The following prescriptions were given: Ipratropium/Albuterol Sulfate [Duoneb] 3 ml INHALATION Q8H #30 ampul.neb Prednisone 40 mg PO DAILY #30 tab Primary Care Physician: Jessenia Rios MD [Primary Care Provider] - Please follow up with your Primary Care Physician in: 1 Week. Please Follow Up With: Connor Parks MD When: 2 weeks.
--- NOTE | 2017-05-23 12:20 | CASEMGMT ---
KELLY VALDEZ received update that [facility] was not in network with insurance. Patient agreeable to [facility] that is in network with insurance. Referral made to [facility] and they are able to accept the patient. KELLY VALDEZ updated patient regarding HHC setup with [facility].
--- NOTE | 2017-05-23 16:22 | PCM.DC.SUM ---
Discharge Date and Diagnosis Date of Admission: 05/19/17 Date of Discharge: 05/23/17 - Primary Discharge Diagnosis 1 acute hypoxic respiratory failure. #2 acute COPD exacerbation. #3 acute influenza B. #4 suspected obstructive sleep apnea. - Secondary Discharge Diagnosis Chronic Problems Chronic obstructive pulmonary disease (Chronic) CAD (coronary artery disease) (Chronic) CHF (congestive heart failure) (Chronic) Borderline type 2 diabetes mellitus (Chronic) PAF (paroxysmal atrial fibrillation) (Chronic) Rheumatoid arthritis (Chronic) H/O asbestosis (Chronic) Hospital Course and Treatment Imaging Results: Clinical Impression(s) from Imaging Studies Chest X-Ray 05/19/17 02:45 IMPRESSION: There are chronic fibrotic changes of the lungs. There are NO acute infiltrates. There is NO pleural effusion or pneumothorax. There are calcified pleural plaque. Normal size heart. Electronically Signed: Carlos Price MD at 3:36 EDT , Service support , Dr. Parks, pulmonology. Operations: None Procedures: None Summary of Care Provided: Patient seen and examined on the day of discharge and appeared to be stable to be discharged to home. His breathing has been stable on 2 L of oxygen. His pulse oximeter dropped down to 87% on room air with ambulation. His other vital signs were stable. - Physical Exam General: Alert, Oriented x3, Cooperative, No apparent distress. HEENT: Atraumatic, PERRLA, EOMI. Neck: Supple, No JVD, Negative Carotid Bruits, Trachea Midline, Thyroid Normal. Lungs: Decreased breath sounds bilateral, occasional rhonchi, No wheeze, No rales. Cardiovascular: Regular rate, Regular Rhythm, Normal S1, Normal S2, PMI Normal. Abdomen: Bowel Sounds Present, Soft, Non Tender, Non-Distended, No Hepato-splenomegaly. Extremities: No clubbing, No cyanosis, No edema Skin: No rashes, No breakdown Neurological: Neuro grossly intact Hospital course: The patient is a 66 year old M admitted because of shortness of breath and he was found to have acute hypoxic respiratory failure due to acute COPD exacerbation which was likely triggered by acute influenza B and also he has a history of probable chronic lung disease secondary to rheumatoid arthritis and suspected obstructive sleep apnea. His chest x-ray, revealed no acute infiltrate, consolidation or effusion and pneumonia ruled out. His respiratory panel for viruses was positive for influenza B. He was treated with IV steroids, 3 days of IV Zithromax, bronchodilators and Tamiflu. Patient symptoms did improve very slowly and he remained on oxygen. His sputum culture revealed presumptive Emily albicans. Blood culture showed no growth in 5 days. With above-mentioned treatment, patient symptoms improved and he remains on 2 L of oxygen. Pulmonology consulted and recommended to continue same treatment and to have sleep study as outpatient. Walking pulse oximeter performed and patient's pulse ox went down to 87% on room air with ambulation. He did qualify for home oxygen. Patient requires nebulizer and home oxygen and he is mobile inside his home and in the community requiring oxygen with portability. He completed 3 days of IV Zithromax. Patient was on Coumadin history of A. fib and his INR went up to 5.2 and then came down to 4.5. There was no evidence of bleeding. Patient discharged home in a stable medical condition, discharged on tapering course of prednisone and requested to keep taking prednisone 5 mg twice a day when he is done with the tapering course, patient requested to not to take Coumadin on the night of discharge and the following night and to do pro time and INR on , May 25, 2017 and to call his PCP for next Coumadin dosing, discharged on home oxygen at 2 L, plan to follow-up with pulmonology in 2 weeks and to have sleep study as outpatient, recommended follow-up with PCP in 1 week. Discharge Activity: Return to Normal Activity Weight Bearing Status: Weight bearing as tolerated Call your doctor if you observe: Fever of 101 or Higher, Shortness of breath, Dizziness, Fainting spells, Chest pain, Increased palpitations (irregular heartbeat), Uncontrolled pain Home Medications: Medications to take at Discharge Ergocalciferol [Vitamin D] 50,000 unit PO Q7D 05/19/13 Furosemide [Lasix] 40 mg PO DAILY 05/19/13 Hydroxychloroquine [Plaquenil] 200 mg PO BIDCM 05/19/13 Pantoprazole Sodium [Protonix] 40 mg PO DAILY 05/19/13 Potassium Chloride [K-Dur] 20 meq PO DAILY 05/19/13 Verapamil HCl [Verapamil ER] 240 mg PO DAILY 03/16/14 Warfarin [Coumadin] 4 mg PO MOTUWETHFRSA 05/19/13 predniSONE tablet 5 mg PO BID 05/19/13 Acetaminophen [Acetaminophen ER] 650 mg PO PRN PRN 05/19/17 Albuterol IH (ProAir) [Proair Hfa] 2 puff INHALATION Q4H PRN PRN 05/19/17 Budesonide Inhaler 180 mcg [Pulmicort Inhaler 180 mcg] 2 puff INHALATION BID 05/19/17 Cyclobenzaprine [Flexeril] 10 mg PO TID PRN PRN 05/19/17 Flecainide [Tambocor] 50 mg PO BID 05/19/17 Gabapentin [Neurontin] 600 mg PO BIDCM 05/19/17 Nitroglycerin [Nitrostat] 0.4 mg SUBLINGUAL PRN PRN 05/19/17 Spironolactone [Aldactone] 25 mg PO DAILY 05/19/17 Warfarin [Coumadin] 6 mg PO JORDAN 05/19/17 Ipratropium/Albuterol Sulfate [Duoneb] 3 ml INHALATION Q8H #30 ampul.neb 05/23/17 Prednisone 40 mg PO DAILY #30 tab 05/23/17 Following Prescrptions Were Given to Patient: Ipratropium/Albuterol Sulfate [Duoneb] 3 ml INHALATION Q8H #30 ampul.neb Prednisone 40 mg PO DAILY #30 tab Primary Care Physician: Jessenia Rios MD [Primary Care Provider] - Please follow up with your Primary Care Physician in: 1 Week. Please Follow Up With: Connor Parks MD When: 2 weeks. Patient Instructions: Ipratropium [place] Nebulizer solution, Discharge Instructions: Taking Bronchodilators, Discharge Instructions: COPD, Discharge Instructions: Using Oxygen at Home, Using a Nebulizer (Adult) Disposition: Home Minutes spent on discharge:: 32 Patient Condition:: Stable Medical Necessity - Tobacco Use Smoking Status: Former smoker Tobacco Use: Non-smoker Meaningful Use Info Meaningful Use Diagnoses (Choose all that apply): None applicable Code Visit Inpatient E&M: 16665 Disch Hosp
== END 2017-05-23 15:30 | disposition home health service (06) | DRG 189 ==
LOC: ED 03:59 → MS3 04:26
PROVIDERS: Internal Medicine; Admitting Provider Family Medicine; Emergency Provider Emergency Medicine; Family Provider Internal Medicine; PCP Internal Medicine; Visit Provider Hospitalist
DX: J96.01 Acute respiratory failure with hypoxia (principal); I48.0 Paroxysmal atrial fibrillation; I50.9 Heart failure, unspecified; J44.1 Chronic obstructive pulmonary disease with (acute) exacerbation; J10.1 Influenza due to other identified influenza virus with other respiratory manifestations; Z87.891 Personal history of nicotine dependence; R73.03 Prediabetes; Z79.01 Long term (current) use of anticoagulants; J61 Pneumoconiosis due to asbestos and other mineral fibers; M05.10 Rheumatoid lung disease with rheumatoid arthritis of unspecified site; I25.10 Atherosclerotic heart disease of native coronary artery without angina pectoris; G47.33 Obstructive sleep apnea (adult) (pediatric)
CPT/HCPCS: 36415; 36600; 71045; 80048; 82803; 82962; 83735; 83880; 84100; 84484; 85025; 85027; 85610; 87040; 87070; 87205; 87633; 93005; 94002; 94003; 94640; 94668; 97110; 97116; 97162; 97166; 97802; 99285; A4216

== ENCOUNTER 2017-06-02 09:35 | Emergency (ER) | payer MEDICARE, SELFPAY ==
[2017-06-02 09:36] VITALS: BP 146/98; PULSE 84; RESP 20; TEMP 36.4; O2SAT 97; BMI 26.4
--- NOTE | 2017-06-02 09:55 | CT_ITS ---
STUDY: CT ABDOMEN AND PELVIS WITHOUT CONTRAST REASON FOR EXAM: Male, 66 years old. Abdominal pain with abdominal wall bruising. RADIATION DOSAGE (If Supplied By Facility): CTDIvol = ( 13.93 ) mGy, DLP = ( 706.30 ) mGycm TECHNIQUE: Transaxial images were obtained from the dome of the diaphragm to the symphysis pubis without oral contrast, and without intravenous contrast. Sagittal and coronal images were reconstructed. Individualized dose optimization techniques were used for this CT. COMPARISON: Prior comparable comparison studies are not available for review at this time. FINDINGS: Appears to be some lipomatous thickening of the posterior pleura. There are associated calcified pleural plaques of the posterior pleural. There is diffuse interstitial thickening present in both lungs. There is suggestion for mild bronchiectasis. No pleural effusions are visualized. There are vascular calcifications of the coronary arteries. There may be some epicardial calcification as well. Normal liver. Normal gallbladder and extrahepatic biliary system. Normal spleen. Normal pancreas. Normal bilateral adrenal glands. Normal right kidney. Normal left kidney. There is a small hiatal hernia. There is no evidence for dilated bowel, ascites or pneumoperitoneum. The small bowel has a grossly normal appearance. Stool is visible throughout the colon with scattered colonic diverticula. The appendix is visualized and appears normal. There is minimal atherosclerotic calcification of the abdominal aorta with elongation and tortuosity, but without a demonstrated aneurysm. Normal inferior vena cava. Normal retroperitoneum. Normal urinary bladder. There is a hematoma within the right rectus abdominis muscle with diffuse enlargement of the muscle. The estimated size of the hematoma and hemorrhage measures 11.6 x 9.4 x 4.9 cm in size. There is some groundglass attenuation adjacent to the hematoma as well. There may be left-sided inguinal hernia containing fat. There may be lipomatous infiltration of bilateral inguinal canals. There is moderate compression of the L2 vertebral body. Estimated amount compression is approximately 50%. There is also moderate compression fracture of T11. There is multilevel thoracic spondylosis. There is multilevel degenerative disc disease with vacuum disc phenomenon at L1-2, L2-3 and L3-4. There is also degenerative disc disease at L5-S1. There are degenerative changes of both hips. CT/Abdomen/Pelvis without Cont IMPRESSION: 1. Large hematoma involving the right rectus abdominis muscle. 2. Moderate compression fractures of T11 and L2. 3. Calcified pleural plaques and fatty infiltration of a pleural. Electronically Signed: Zarina Rodriguez MD at 11:08 EDT , Service support ,
--- NOTE | 2017-06-02 10:01 | ED.DCSUM_ITS ---
- ER Visit Summary Date of Service: 06/02/17 Chief Complaint: Abdominal pain History of Present Illness: The patient is a 66 M who reports abdominal pain for last 5-6 days. Patient states he had initially been constipated and had not had a bowel movement 5 days prior to this. He was seen by his PCP on the and was given medication for constipation. Patient states he is now having bowel movements but his pain continues. He is also having bruising of his lower abdominal wall. Patient is currently on Coumadin and states his INR is 3.6 on the . His Coumadin dose was reduced. Patient denies any urinary symptoms. He denies fever or chills. He has had no nausea or vomiting. He denies any prior abdominal surgeries. Physical Examination: Vital signs are unremarkable. Patient sitting upright in bed no acute distress. Heart is regular rate and rhythm. Lung sounds are slightly diminished throughout. Abdomen is soft with tenderness in the lower abdomen, worse on the right. There is no guarding or rebound. Hypoactive bowel sounds are present. He does have ecchymosis over the lower abdominal wall. There is no flank ecchymosis noted. Lower extremity examination reveals strong distal pulses with no significant calf tenderness or edema. Test Results: CBC was a white count of 16.1 with 85% neutrophils. He has recently been on steroids because of his breathing. His hemoglobin is 11.3 which is actually improved when compared to his recent hospital stay. His platelet count is 140,000 which is stable from his last lab draw. Chemistry studies reveal BUN of 31 which is chronic. Creatinine is normal. His INR is mildly subtherapeutic at 1.7. CT flank reveals large hematoma to the right rectus abdominal muscle. There is moderate compression fractures of T11 and L2. Emergency Department Course and Treatment: Patient was given a dose of IV fentanyl for pain. Test results were discussed with the patient and his at bedside. He is hemodynamically stable. Patient will hold his Coumadin to the weekend and restart on Monday. This is been discussed with Dr. Ko, on -call for Dr. Rios. Patient will continue his MiraLAX and was encouraged to get magnesium citrate as well. Treatment Plan: [] Disposition: Discharge Impression: 1. Abdominal wall hematoma 2. Constipation This note was generated with [employer] software. It may contain incorrect words, spelling, and punctuation that were not noted in review of the chart prior to signing ED Disposition - Plan for ED Patient: Chief Complaint: Abd Pain Referrals: Jessenia Rios MD [Primary Care Provider] -
[2017-06-02] MEDS: 0.9% Normal Saline 1,000 ML 15 ML IV (10:14)
[2017-06-02] MEDS: fentaNYL 100 MCG/2 ML Ampul 25 MCG IV (10:14)
[2017-06-02 10:21] LABS: International Normalized Ratio 1.7; Prothrombin Time (Protime)PT. 19.8 SECONDS (11.7-14.9)
[2017-06-02 10:26] LABS: Hematocrit 37.5 % (40-54); Hemoglobin 11.3 g/dl (13.0-16.5); Mean Corp Hgb Conc 30.1 g/gl (32-36); Mean Corpuscular Hgb 28.7 pg (27.0-32.0); Mean Corpuscular Volume 95.2 fL (80-94); Mean Platelet Vol. 11.5 fl (6.2-12.0); Platelet Count 140 K/mm3 (150-450); RBC Distribution Width CV 16.1 % (11.6-14.6); Red Blood Count 3.94 M/mm3 (4.6-6.2); White Blood Count 16.1 K/mm3 (4.4-11.0)
[2017-06-02 10:28] LABS: Differential Indicated MANUAL DIFF; POSITIVE COUNT YES; POSITIVE DIFFERENTIAL YES; POSITIVE MORPHOLOGY YES
[2017-06-02 10:32] LABS: Bacteria 0 SEEN /hpf (None Seen); Mucous, Urine 0 SEEN /hpf (<or=2+); Red Blood Cells-Urine 0 SEEN /hpf (0-5); White Blood Cells 0 SEEN /hpf (0-5)
[2017-06-02 10:34] LABS: Color, Urine Yellow (Yellow); Glucose, Dipstick Normal (Normal); Ketone-Dipstick Negative (Negative); Leukocyte Esterase-Dipstick Negative /ul (Negative); Nitrite-Dipstick Negative (Negative); Occult Blood-Urine Negative /ul (Negative); Protein-Dipstick Negative (Negative); Urine Bilirubin Dipstick Negative (Negative); Urine Clarity Clear (Clear); Urine Urobilinogen Normal (Normal)
[2017-06-02 10:36] LABS: Anion Gap 6 (5-15); BUN 31 mg/dL (7-18); BUN/Creat Ratio 34.2 RATIO (10-20); Calcium,Total 8.3 mg/dL (8.5-10.1); Chloride 101 mmol/L (98-107); Creatinine, Serum 0.91 mg/dL (0.70-1.30); EST Glomerular Filtration Rate 89 mL/min (>60); Est Glom Filt Rate - Afr Amer 108 mL/min (>60); Glucose 109 mg/dL (74-106); Potassium 5.3 mmol/L (3.5-5.1); Sodium Level 138 mmol/L (136-145)
[2017-06-02 10:49] LABS: Eosinophil 1 % (0-5); Lymphocyte 7 % (19-41); Metamyelocyte 3 % (0-1); Monocyte 3 % (0-10); Neutrophil-Band 1 % (0-5); Neutrophil-Segmented 85 % (47-70); Total Cells Counted 100 (MANUAL DIFF)
[2017-06-02 10:50] LABS: Absolute Neutrophil Count 13.9 X10^3/uL (2.0-7.7)
[2017-06-02 10:50] LABS: Squamous Epithelial Cells - UA 0-5 SEEN /hpf (0-5)
[2017-06-02 11:48] VITALS: BP 138/78; PULSE 82; RESP 14; O2SAT 98
--- NOTE | 2017-06-02 13:04 | ED.DEP ---
ED Disposition - Plan for ED Patient: Disposition: Home or Assisted Living Chief Complaint: Abd Pain Instructions: ED Hematoma, ED Constipation Referrals: Jessenia Rios MD [Primary Care Provider] - 3-5 Days Additional Instructions: Hold your Coumadin and restart on Monday. Return for any worsening symptoms.
[2017-06-02 13:10] VITALS: BP 130/80; PULSE 75; RESP 14; O2SAT 98
== END 2017-06-02 13:27 | disposition home or self-care (01) ==
PROVIDERS: Emergency Provider Emergency Medicine; Family Provider Internal Medicine; PCP Internal Medicine
DX: S30.1XXA Contusion of abdominal wall, initial encounter (principal); K59.00 Constipation, unspecified; I25.10 Atherosclerotic heart disease of native coronary artery without angina pectoris; I50.9 Heart failure, unspecified; J44.9 Chronic obstructive pulmonary disease, unspecified; M06.9 Rheumatoid arthritis, unspecified; Z87.891 Personal history of nicotine dependence; Z79.01 Long term (current) use of anticoagulants; Z79.51 Long term (current) use of inhaled steroids; Z79.52 Long term (current) use of systemic steroids; X58.XXXA Exposure to other specified factors, initial encounter; Y93.9 Activity, unspecified; Y92.9 Unspecified place or not applicable; Y99.9 Unspecified external cause status
CPT/HCPCS: 74176; 80048; 81001; 85025; 85610; 96374; 99283; J7030; A4216

== ENCOUNTER → 2017-06-22 14:38 | Outpatient (CLI) | payer MEDICARE, SELFPAY ==
[2017-06-22 14:54] LABS: Prothrombin Time (Protime)PT. 22.7 SECONDS (11.7-14.9)
== END ==
PROVIDERS: Family Provider Internal Medicine; PCP Internal Medicine; Visit Provider Internal Medicine
DX: Z79.01 Long term (current) use of anticoagulants (principal)
CPT/HCPCS: 85610

== ENCOUNTER → 2017-06-29 12:44 | Outpatient (CLI) | payer MEDICARE, SELFPAY ==
[2017-06-29 13:18] LABS: International Normalized Ratio 1.9; Prothrombin Time (Protime)PT. 21.7 SECONDS (11.7-14.9)
== END ==
PROVIDERS: Visit Provider Internal Medicine
DX: I48.2 Chronic atrial fibrillation (principal); Z79.01 Long term (current) use of anticoagulants
CPT/HCPCS: 85610

== ENCOUNTER 2017-07-10 15:20 | Inpatient (IN) | payer MEDICARE, SELFPAY ==
[2017-07-10] VITALS (13 sets, daily range): BP systolic 117–144; BP diastolic 82–99; PULSE 97–118; RESP 18–34; TEMP 36.4–36.8; O2SAT 94–99; BMI 26.7; BMI 26.8; BMI 27.0
--- NOTE | 2017-07-10 15:33 | EKG12_ITS ---
Test Reason : SOB Blood Pressure : / mmHG Vent. Rate : 099 BPM Atrial Rate : 277 BPM P-R Int : 000 ms QRS Dur : 106 ms QT Int : 374 ms P-R-T Axes : 000 128 -16 degrees QTc Int : 479 ms Atrial fibrillation Low voltage QRS (limb leads) Poor R wave progression Abnormal ECG Confirmed by NEY SAWYER, SOPHIA ([id number]), editor in chief newspaper [employer] ([id number]) on 07/12/2017 2:13:11 PM Referred By: MONIE Confirmed By:SOPHIA BREWSTER MD
--- NOTE | 2017-07-10 15:34 | RAD_ITS ---
STUDY: X-RAY CHEST REASON FOR EXAM: Male, 66 years old. Dyspnea and shortness of breath. TECHNIQUE: Single AP portable view of the chest. COMPARISON: Comparison is made with prior study May 19, 2017. FINDINGS: EKG electrodes are seen. Since prior study, there has been a progression of the interstitial markings in both lungs worse in the right hemithorax. This may represent a mild degree of CHF superimposed on chronic interstitial fibrosis. Stable appearance of the calcified pleural plaques worse on the right side. Blunting of the left costophrenic angle. Normal size heart. Normal mediastinum and jose. Normal visualized pulmonary arteries. There is atherosclerotic calcification of the aortic arch with tortuosity. There are diffuse degenerative changes of the visualized thoracic spine. Normal visualized ribs, clavicles, and shoulders. There is no demonstrated abnormality of the visualized soft tissue structures of the upper abdomen. RAD/Chest 1 View (Portable) IMPRESSION: Findings suggesting a mild degree of CHF superimposed on chronic interstitial fibrosis. Electronically Signed: Lm Haddad MD at 15:54 EDT Tel [phone], Service support ,
[2017-07-10] MEDS: MethylPREDNISolone 125 MG/2 ML Vial IV (15:49)
--- NOTE | 2017-07-10 15:55 | ED.DCSUM_ITS ---
- ER Visit Summary Date of Service: 07/10/17 Chief Complaint: [Shortness of breath] History of Present Illness: The patient is a 66 M [presents the emergency department with increasing shortness of breath over the last week. Patient states that he felt like he was getting sick starting yesterday. Patient's had nausea and complains of dizziness with standing and walking. Patient denies any chest pain. Patient denies any increased cough. Patient has increased his O2 at home from 2 L to 4 L. Patient does complain of exertional dyspnea. Patient has not had a fever. He denies any swelling in his legs out of the ordinary or increased weight gain. Patient does have a history of COPD, atrial fibrillation, rheumatoid arthritis, coronary artery disease, CHF, and diabetes. Patient is on Coumadin for his A. fib and has been compliant.] Physical Examination: [HEENT-PERRLA, EOMI. Cranial nerves II through XII grossly intact. TMs clear. Mucous membranes moist. No adenopathy. Cardiovascular- irregularly irregular, no murmurs auscultated, tachycardic with heart rate in the low 110s Lungs-increased breath sounds bilaterally with expiratory wheezes noted bilaterally. Patient is tachypneic. No accessory muscle use or retractions. Abdomen-normoactive bowel sounds, soft, nontender, no rebound or rigidity, no peritoneal signs. Extremities-intact ?4, normal range of motion, normal pulses, atraumatic]. No significant edema Test Results: [EKG obtained on arrival showed atrial fibrillation with a ventricular rate of 99 bpm with no acute ST segment changes noted. CBC with differential showed a slightly elevated white count 12.1, hemoglobin 10.9, hematocrit 36, platelets 156. Chemistries unremarkable. Troponin was less than 0.02. BNP was 80. Chest x-ray was read as chronic interstitial fibrosis with possibly some mild CHF superimposed. INR was 3.7.] Emergency Department Course and Treatment: [Patient was medicated with DuoNeb aerosol and albuterol aerosol. Patient was started on Solu-Medrol IV. Treatment Plan: [Patient was ambulated after treatments and on his 2 L of home O2 he desaturates into the 88-89% range] Disposition: [Admit] Impression: [COPD exacerbation Coumadin coagulopathy] This note was generated with [employer] software. It may contain incorrect words, spelling, and punctuation that were not noted in review of the chart prior to signing ED Disposition - Plan for ED Patient: Chief Complaint: Shortness of Breath Referrals: Jessenia Rios MD [Primary Care Provider] -
[2017-07-10] MEDS: Albuterol 2.5 MG/3 ML VIAL.NEB. INHALATION (15:56)
[2017-07-10] MEDS: Ipratropium/Albuterol Sulfate 3 ML AMPUL.NEB INHALATION ×3 (15:56→23:19)
[2017-07-10 16:01] LABS: Absolute Lymphocyte Count 0.88 X10^3/ul (0.83-4.51); Absolute Neutrophil Count 10.2 X10^3/uL (2.0-7.7); Basophil# 0.01 X10^3/uL; Basophil% 0.1 % (0-1); Eosinophil# 0.05 X10^3/uL; Eosinophils% 0.4 % (0-5); Hematocrit 36.1 % (40-54); Hemoglobin 10.9 g/dl (13.0-16.5); Lymphocyte # 0.88 X10^3/ul (4.0); Lymphocyte % 7.3 % (19-41); Mean Corp Hgb Conc 30.2 g/gl (32-36); Mean Corpuscular Hgb 28.7 pg (27.0-32.0); Mean Platelet Vol. 11.5 fl (6.2-12.0); Monocyte# 0.92 X10^3/uL; Monocyte% 7.6 % (0-10); Neutrophil # 10.19 X10^3/uL (2.7-7.7); Neutrophil % 84.1 % (47-70); Platelet Count 156 K/mm3 (150-450); RBC Distribution Width CV 16.5 % (11.6-14.6); RBC Distribution Width SD 55.1 fl (35.1-43.9); White Blood Count 12.1 K/mm3 (4.4-11.0)
[2017-07-10 16:16] LABS: BUN 29 mg/dL (7-18); Creatinine, Serum 0.97 mg/dL (0.70-1.30); Glucose 109 mg/dL (74-106)
[2017-07-10 16:17] LABS: Anion Gap 8 (5-15); BUN/Creat Ratio 29.9 RATIO (10-20); Calcium,Total 8.7 mg/dL (8.5-10.1); Chloride 93 mmol/L (98-107); EST Glomerular Filtration Rate 82 mL/min (>60); Est Glom Filt Rate - Afr Amer 100 mL/min (>60); Estimated Creatinine Clearance 70.98 ml/min; Potassium 4.5 mmol/L (3.5-5.1); Sodium Level 132 mmol/L (136-145)
[2017-07-10 16:18] LABS: POSITIVE COUNT NO; POSITIVE DIFFERENTIAL NO; POSITIVE MORPHOLOGY NO
[2017-07-10 16:36] LABS: Prothrombin Time (Protime)PT. 37.1 SECONDS (11.7-14.9)
[2017-07-10 16:43] LABS: International Normalized Ratio 3.7
[2017-07-10 16:44] LABS: BNP,B-Type NATRIURETIC PEPTIDE 80.8 pg/mL (0-100)
--- NOTE | 2017-07-10 18:11 | NURSING ---
MED SURG COPD JOPPERI
--- NOTE | 2017-07-10 18:11 | PCM.HP.STD ---
Problem List (1) COPD with acute exacerbation Status: Acute (2) Daytime hypersomnia Status: Acute (3) Chronic obstructive pulmonary disease Status: Chronic Qualifiers: (4) CAD (coronary artery disease) Status: Chronic Qualifiers: (5) CHF (congestive heart failure) Status: Chronic Qualifiers: (6) Borderline type 2 diabetes mellitus Status: Chronic (7) PAF (paroxysmal atrial fibrillation) Status: Chronic (8) Acute exacerbation of chronic obstructive pulmonary disease (COPD) Status: Acute (9) Acute respiratory failure Status: Acute Qualifiers: (10) Rheumatoid arthritis Status: Chronic Qualifiers: (11) H/O asbestosis Status: Chronic History of Present Illness Date of Admission: 07/10/17 Chief Complaint: shortness of breath. The patient is a 66 year old M who has been SOB for months. It has gotten worse this week, to where he is SOB at rest as well as DACOSTA. Non-productive cough. He is on chronic oxygen at 2l/m, but did have to increase it to 4l/min and was still SOB. This is similar to prior episodes of COPD exacerbation. Pt presented to ED and rec'd BDs, and solumedrol.[] Past Medical History Past Medical History (Chronic Problems): Chronic Problems (Last Reviewed 06/08/17 @ 13:42 by Odalys Espinosa NP-C) Chronic obstructive pulmonary disease (Chronic) CAD (coronary artery disease) (Chronic) CHF (congestive heart failure) (Chronic) Borderline type 2 diabetes mellitus (Chronic) PAF (paroxysmal atrial fibrillation) (Chronic) Rheumatoid arthritis (Chronic) H/O asbestosis (Chronic) Allergies No Known Allergies Allergy (Verified 07/10/17 15:20) Home Medications: Ambulatory Orders Medication Instructions Recorded Ergocalciferol [Vitamin D] 50,000 unit PO FR 05/19/13 Hydroxychloroquine [Plaquenil] 200 mg PO BIDCM 05/19/13 Pantoprazole Sodium [Protonix] 40 mg PO DAILY 05/19/13 Potassium Chloride [K-Dur] 20 meq PO DAILY 05/19/13 Verapamil HCl [Verapamil ER] 240 mg PO DAILY 05/19/13 Warfarin [Coumadin] 4 mg PO SUMOTUWETHFRSA 05/19/13 Acetaminophen [Acetaminophen ER] 650 mg PO Q6H PRN PRN 05/19/17 Albuterol IH (ProAir) [Proair Hfa] 2 puff INHALATION Q4H PRN PRN 05/19/17 Flecainide [Tambocor] 50 mg PO BID 05/19/17 Gabapentin [Neurontin] 600 mg PO BIDCM 05/19/17 Nitroglycerin [Nitrostat] 0.4 mg SUBLINGUAL PRN PRN 05/19/17 Spironolactone [Aldactone] 25 mg PO DAILY 05/19/17 Ipratropium/Albuterol Sulfate 3 ml INHALATION Q8H #30 ampul.neb 05/23/17 [Duoneb] Prednisone 5 mg PO BID 06/02/17 Cyclobenzaprine [Flexeril] 10 mg PO TID PRN PRN 07/10/17 Furosemide [Lasix] 40 mg PO DAILY 07/10/17 Warfarin [Coumadin ([facility])] 6 mg PO JORDAN 07/10/17 Surgical History: - - Notes calcium deposit removal otherwise no surgical history. Psychiatric History: No pertinent psych hx Lives: Spouse/ Significant Other Smoking Status: Former smoker Tobacco Use: Cigarettes Alcohol: None Drugs: None - *Family History Maternal History Items: Cancer Paternal History Items: Diabetes, Pulmonary Disease Review of Systems Constitutional: Denies: Anorexia, Chills, Fever Eyes: Denies: Blurred vision, Double vision HEENT: Denies: Head Aches, Sinus Congestion, Sinus Drainage Cardiovascular: Denies: Chest Pain, Palpitations Respiratory: Reports: Cough, Shortness of Breath. Denies: Sputum production Gastrointestinal: Reports: Abdominal Pain - after eating. Last BM just before arrival.. Denies: Nausea, Vomiting Genitourinary: Denies: Dysuria Musculoskeletal: Reports: - - ulnar deviations of digits.. Denies: Joint Pain, Joint Tenderness Skin: Reports: - - chronic bruising. Neurological: Denies: Numbness, Tingling, Focal weakness Psychiatric: Denies: Anxiety, Depression Endocrine: Denies: Change in Body Habitus, Heat/ Cold Intolerance Hematologic/ Lymphatic: Denies: Easy Bruising, Easy Bleeding VTE Information - Inpt Only VTE Present on Admission: No VTE Pharm Prophylaxis ordered?: Yes Patient Problems: Active and Suspected Problems (Last Reviewed 06/08/17 @ 13:42 by Odalys Espinosa NP-C) COPD with acute exacerbation (Acute) - Physical Exam General: Alert, Cooperative, No apparent distress HEENT: Atraumatic, Normocephalic Oral: Moist Mucosa, No Gingival or Mucosal Lesions/ Ulcerations Neck: No Nodes, Thyroid Normal Size and Texture Lungs: Diminished, Wheezes Cardiovascular: Regular rate, Regular Rhythm, Normal S1, Normal S2, No murmurs Abdomen: Bowel Sounds Present, Soft, Non Tender, Non-Distended, No Hepato-splenomegaly Extremities: No edema, No Calf Tenderness Skin: - - chronic brusing on BUE. Musculoskeletal: No Tenderness to Palpation of Joints or Extremities, Cachexia, Muscle Wasting, - - dramatic ulnar deviations of bilaterally hands. large bulge on proximal right arm (pt says he was told it was a lipoma). small buffalo hump on back. Neurological: Muscle tone normal, Sensory exam intact to light touch and pain Psych/Mental Status: Normal Affect, Appropriate Vital Signs Temp Pulse Resp BP Pulse Ox 36.4 C L 105 H 24 H 120/85 H 95 07/10/17 15:21 07/10/17 17:43 07/10/17 17:43 07/10/17 17:43 07/10/17 17:43 Oxygen Flow Rate (L/min) 2 Oxygen Delivery Method Nasal Cannula Weight: 77.564 kg Body Mass Index (BMI) 26.7 Laboratory Tests Past 24 Hrs 07/10/17 07/10/17 07/10/17 15:50 15:50 15:50 WBC 12.1 H RBC 3.80 L Hgb 10.9 L Hct 36.1 L MCV 95.0 H MCH 28.7 MCHC 30.2 L RDW 16.5 H RDW Differential 55.1 H Plt Count 156 MPV 11.5 Immature Gran % (Auto) 0.500 Neut % (Auto) 84.1 H Lymph % (Auto) 7.3 L [place] % (Auto) 7.6 Eos % (Auto) 0.4 Baso % (Auto) 0.1 Absolute Neuts (auto) 10.2 H Absolute Lymphs (auto) 0.88 Total Counted Not Reportable PT INR Sodium 132 L Potassium 4.5 Chloride 93 L Carbon Dioxide 31.0 Anion Gap 8 BUN 29 H Creatinine 0.97 Estim Creat Clear Calc 70.98 Est GFR (MDRD) Af Amer 100 Est GFR (MDRD) Non-Af 82 BUN/Creatinine Ratio 29.9 H Glucose 109 H Calcium 8.7 Troponin I < 0.02 B-Natriuretic Peptide 80.8 07/10/17 15:50 WBC RBC Hgb Hct MCV MCH MCHC RDW RDW Differential Plt Count MPV Immature Gran % (Auto) Neut % (Auto) Lymph % (Auto) [place] % (Auto) Eos % (Auto) Baso % (Auto) Absolute Neuts (auto) Absolute Lymphs (auto) Total Counted PT 37.1 H INR 3.7 H* Sodium Potassium Chloride Carbon Dioxide Anion Gap BUN Creatinine Estim Creat Clear Calc Est GFR (MDRD) Af Amer Est GFR (MDRD) Non-Af BUN/Creatinine Ratio Glucose Calcium Troponin I B-Natriuretic Peptide CXR shows chronic changes bilaterally. No other acute changes noted. EKG showed Afib. Assessment/Plan Active and Suspected Problems (Last Reviewed 06/08/17 @ 13:42 by Odalys Espinosa, RN PROGR[facility]-C) COPD with acute exacerbation (Acute) 1. AECOPD BDs, solumedrol this is complicated by rheumatoid involvement of his lungs 2. coagulopathy 2/2 coumadin hold coumadin 3. RA: cont plaquenil patient may need to be tapered down to his standard pred dose on discharge follow up with rheumatology as outpt. 4. DVT proph: already anticoagulated 5. Advanced care planning: discussed CPR, intubation and PEG tube with patient. He wishes to be FULL CODE at this time and is ok with intubation and PEG tubes if necessary. DW patient's at bedside. Code Visit Inpatient E&M: 43111 Init Hosp L3
--- NOTE | 2017-07-10 18:21 | HP.PCM_ITS ---
Problem List (1) COPD with acute exacerbation Status: Acute (2) Daytime hypersomnia Status: Acute (3) Chronic obstructive pulmonary disease Status: Chronic Qualifiers: (4) CAD (coronary artery disease) Status: Chronic Qualifiers: (5) CHF (congestive heart failure) Status: Chronic Qualifiers: (6) Borderline type 2 diabetes mellitus Status: Chronic (7) PAF (paroxysmal atrial fibrillation) Status: Chronic (8) Acute exacerbation of chronic obstructive pulmonary disease (COPD) Status: Acute (9) Acute respiratory failure Status: Acute Qualifiers: (10) Rheumatoid arthritis Status: Chronic Qualifiers: (11) H/O asbestosis Status: Chronic History of Present Illness Date of Admission: 07/10/17 Chief Complaint: shortness of breath. The patient is a 66 year old M who has been SOB for months. It has gotten worse this week, to where he is SOB at rest as well as DACOSTA. Non-productive cough. He is on chronic oxygen at 2l/m, but did have to increase it to 4l/min and was still SOB. This is similar to prior episodes of COPD exacerbation. Pt presented to ED and rec'd BDs, and solumedrol.[] Past Medical History Past Medical History (Chronic Problems): Chronic Problems (Last Reviewed 06/08/17 @ 13:42 by Odalys Espinosa NP-C) Chronic obstructive pulmonary disease (Chronic) CAD (coronary artery disease) (Chronic) CHF (congestive heart failure) (Chronic) Borderline type 2 diabetes mellitus (Chronic) PAF (paroxysmal atrial fibrillation) (Chronic) Rheumatoid arthritis (Chronic) H/O asbestosis (Chronic) Allergies No Known Allergies Allergy (Verified 07/10/17 15:20) Home Medications: Ambulatory Orders Medication Instructions Recorded Ergocalciferol [Vitamin D] 50,000 unit PO FR 05/19/13 Hydroxychloroquine [Plaquenil] 200 mg PO BIDCM 05/19/13 Pantoprazole Sodium [Protonix] 40 mg PO DAILY 05/19/13 Potassium Chloride [K-Dur] 20 meq PO DAILY 05/19/13 Verapamil HCl [Verapamil ER] 240 mg PO DAILY 05/19/13 Warfarin [Coumadin] 4 mg PO [id number] 05/19/13 Acetaminophen [Acetaminophen ER] 650 mg PO Q6H PRN PRN 05/19/17 Albuterol IH (ProAir) [Proair Hfa] 2 puff INHALATION Q4H PRN PRN 05/19/17 Flecainide [Tambocor] 50 mg PO BID 05/19/17 Gabapentin [Neurontin] 600 mg PO BIDCM 05/19/17 Nitroglycerin [Nitrostat] 0.4 mg SUBLINGUAL PRN PRN 05/19/17 Spironolactone [Aldactone] 25 mg PO DAILY 05/19/17 Ipratropium/Albuterol Sulfate 3 ml INHALATION Q8H #30 ampul.neb 05/23/17 [Duoneb] Prednisone 5 mg PO BID 06/02/17 Cyclobenzaprine [Flexeril] 10 mg PO TID PRN PRN 07/10/17 Furosemide [Lasix] 40 mg PO DAILY 07/10/17 Warfarin [Coumadin ([facility])] 6 mg PO JORDAN 07/10/17 Surgical History: - - Notes calcium deposit removal otherwise no surgical history. Psychiatric History: No pertinent psych hx Lives: Spouse/ Significant Other Smoking Status: Former smoker Tobacco Use: Cigarettes Alcohol: None Drugs: None - *Family History Maternal History Items: Cancer Paternal History Items: Diabetes, Pulmonary Disease Review of Systems Constitutional: Denies: Anorexia, Chills, Fever Eyes: Denies: Blurred vision, Double vision HEENT: Denies: Head Aches, Sinus Congestion, Sinus Drainage Cardiovascular: Denies: Chest Pain, Palpitations Respiratory: Reports: Cough, Shortness of Breath. Denies: Sputum production Gastrointestinal: Reports: Abdominal Pain - after eating. Last BM just before arrival.. Denies: Nausea, Vomiting Genitourinary: Denies: Dysuria Musculoskeletal: Reports: - - ulnar deviations of digits.. Denies: Joint Pain, Joint Tenderness Skin: Reports: - - chronic bruising. Neurological: Denies: Numbness, Tingling, Focal weakness Psychiatric: Denies: Anxiety, Depression Endocrine: Denies: Change in Body Habitus, Heat/ Cold Intolerance Hematologic/ Lymphatic: Denies: Easy Bruising, Easy Bleeding VTE Information - Inpt Only VTE Present on Admission: No VTE Pharm Prophylaxis ordered?: Yes Patient Problems: Active and Suspected Problems (Last Reviewed 06/08/17 @ 13:42 by Odalys Espinosa NP-C) COPD with acute exacerbation (Acute) - Physical Exam General: Alert, Cooperative, No apparent distress HEENT: Atraumatic, Normocephalic Oral: Moist Mucosa, No Gingival or Mucosal Lesions/ Ulcerations Neck: No Nodes, Thyroid Normal Size and Texture Lungs: Diminished, Wheezes Cardiovascular: Regular rate, Regular Rhythm, Normal S1, Normal S2, No murmurs Abdomen: Bowel Sounds Present, Soft, Non Tender, Non-Distended, No Hepato- splenomegaly Extremities: No edema, No Calf Tenderness Skin: - - chronic brusing on BUE. Musculoskeletal: No Tenderness to Palpation of Joints or Extremities, Cachexia, Muscle Wasting, - - dramatic ulnar deviations of bilaterally hands. large bulge on proximal right arm (pt says he was told it was a lipoma). small buffalo hump on back. Neurological: Muscle tone normal, Sensory exam intact to light touch and pain Psych/Mental Status: Normal Affect, Appropriate Vital Signs Temp Pulse Resp BP Pulse Ox 36.4 C L 105 H 24 H 120/85 H 95 07/10/17 15:21 07/10/17 17:43 07/10/17 17:43 07/10/17 17:43 07/10/17 17:43 Oxygen Flow Rate (L/min) 2 Oxygen Delivery Method Nasal Cannula Weight: 77.564 kg Body Mass Index (BMI) 26.7 Laboratory Tests Past 24 Hrs 07/10/17 07/10/17 07/10/17 15:50 15:50 15:50 WBC 12.1 H RBC 3.80 L Hgb 10.9 L Hct 36.1 L MCV 95.0 H MCH 28.7 MCHC 30.2 L RDW 16.5 H RDW Differential 55.1 H Plt Count 156 MPV 11.5 Immature Gran % (Auto) 0.500 Neut % (Auto) 84.1 H Lymph % (Auto) 7.3 L [place] % (Auto) 7.6 Eos % (Auto) 0.4 Baso % (Auto) 0.1 Absolute Neuts (auto) 10.2 H Absolute Lymphs (auto) 0.88 Total Counted Not Reportable PT INR Sodium 132 L Potassium 4.5 Chloride 93 L Carbon Dioxide 31.0 Anion Gap 8 BUN 29 H Creatinine 0.97 Estim Creat Clear Calc 70.98 Est GFR (MDRD) Af Amer 100 Est GFR (MDRD) Non-Af 82 BUN/Creatinine Ratio 29.9 H Glucose 109 H Calcium 8.7 Troponin I < 0.02 B-Natriuretic Peptide 80.8 07/10/17 15:50 WBC RBC Hgb Hct MCV MCH MCHC RDW RDW Differential Plt Count MPV Immature Gran % (Auto) Neut % (Auto) Lymph % (Auto) [place] % (Auto) Eos % (Auto) Baso % (Auto) Absolute Neuts (auto) Absolute Lymphs (auto) Total Counted PT 37.1 H INR 3.7 H* Sodium Potassium Chloride Carbon Dioxide Anion Gap BUN Creatinine Estim Creat Clear Calc Est GFR (MDRD) Af Amer Est GFR (MDRD) Non-Af BUN/Creatinine Ratio Glucose Calcium Troponin I B-Natriuretic Peptide CXR shows chronic changes bilaterally. No other acute changes noted. EKG showed Afib. Assessment/Plan Active and Suspected Problems (Last Reviewed 06/08/17 @ 13:42 by Odalys Espinosa, FLOOR TECHNICIAN-C) COPD with acute exacerbation (Acute) 1. AECOPD * BDs, solumedrol * this is complicated by rheumatoid involvement of his lungs 2. coagulopathy * 2/2 coumadin * hold coumadin 3. RA: * cont plaquenil * patient may need to be tapered down to his standard pred dose on discharge * follow up with rheumatology as outpt. 4. DVT proph: already anticoagulated 5. Advanced care planning: discussed CPR, intubation and PEG tube with patient. He wishes to be FULL CODE at this time and is ok with intubation and PEG tubes if necessary. DW patient's at bedside. Code Visit Inpatient E&M: 26793 Init Hosp L3
[2017-07-10] MEDS: Flecainide 100 MG Tablet 50 MG PO (21:19)
[2017-07-10] MEDS: Hydroxychloroquine 200 MG Tablet PO (21:20)
[2017-07-10] MEDS: Gabapentin 300 MG Capsule 600 MG PO (21:20)
[2017-07-11] VITALS (21 sets, daily range): BP systolic 109–126; BP diastolic 81–98; PULSE 57–138; RESP 16–30; TEMP 36.5–36.9; O2SAT 96–99
[2017-07-11] MEDS: Acetaminophen 325 MG Tablet 650 MG PO ×2 (01:54→22:47)
[2017-07-11] MEDS: Ipratropium/Albuterol Sulfate 3 ML AMPUL.NEB INHALATION ×6 (03:13→23:05)
[2017-07-11] MEDS: Furosemide 40 MG Tablet PO (05:26)
[2017-07-11] MEDS: Naproxen 500 MG Tablet PO ×2 (05:29→18:38)
--- NOTE | 2017-07-11 05:52 | NURSING ---
pt in afib, and has been, this am was 130-140's called the hospitalist, to give lopressor 5mg iv ivp, pt to be placed on tele.
[2017-07-11 06:04] LABS: Prothrombin Time (Protime)PT. 41.7 SECONDS (11.7-14.9)
[2017-07-11 06:07] LABS: ALB/GLOB Ratio 0.8 RATIO (0.9-2.4); AST(SGOT) 26 U/L (15-37); Alanine Aminotransfer ALT/SGPT 49 U/L (16-61); Albumin, Serum 3.1 g/dL (3.2-5.0); Alkaline Phosphatase 142 U/L (45-117); Anion Gap 10 (5-15); BUN 29 mg/dL (7-18); BUN/Creat Ratio 29.2 RATIO (10-20); Calcium,Total 8.7 mg/dL (8.5-10.1); Chloride 93 mmol/L (98-107); Creatinine, Serum 0.99 mg/dL (0.70-1.30); EST Glomerular Filtration Rate 80 mL/min (>60); Est Glom Filt Rate - Afr Amer 97 mL/min (>60); Estimated Creatinine Clearance 69.55 ml/min; Globulin 3.8 g/dL (2.2-4.2); Glucose 150 mg/dL (74-106); International Normalized Ratio 4.3; Potassium 4.5 mmol/L (3.5-5.1); Protein, Total 6.9 g/dL (6.4-8.2); Sodium Level 131 mmol/L (136-145)
[2017-07-11] MEDS: Metoprolol Tartrate 5 MG/5 ML Vial IV (06:18)
[2017-07-11 06:20] LABS: Absolute Lymphocyte Count 0.18 X10^3/ul (0.83-4.51); Absolute Neutrophil Count 6.8 X10^3/uL (2.0-7.7); Hematocrit 32.5 % (40-54); Hemoglobin 10.1 g/dl (13.0-16.5); Lymphocyte # 0.18 X10^3/ul (4.0); Lymphocyte % 2.5 % (19-41); Mean Corp Hgb Conc 31.1 g/gl (32-36); Mean Corpuscular Hgb 28.9 pg (27.0-32.0); Mean Corpuscular Volume 93.1 fL (80-94); Mean Platelet Vol. 11.6 fl (6.2-12.0); Monocyte# 0.25 X10^3/uL; Monocyte% 3.5 % (0-10); Neutrophil # 6.75 X10^3/uL (2.7-7.7); Neutrophil % 93.6 % (47-70); Platelet Count 149 K/mm3 (150-450); RBC Distribution Width CV 15.9 % (11.6-14.6); RBC Distribution Width SD 52.3 fl (35.1-43.9); Red Blood Count 3.49 M/mm3 (4.6-6.2); White Blood Count 7.2 K/mm3 (4.4-11.0)
[2017-07-11 06:22] LABS: Differential Indicated SCAN CRITERIA MET; POSITIVE COUNT NO; POSITIVE DIFFERENTIAL YES; POSITIVE MORPHOLOGY NO
[2017-07-11] MEDS: Hydroxychloroquine 200 MG Tablet PO ×2 (08:11→18:38)
[2017-07-11] MEDS: Gabapentin 300 MG Capsule 600 MG PO ×2 (08:11→18:38)
[2017-07-11] MEDS: Verapamil SR 240 MG Tablet PO (08:13)
[2017-07-11] MEDS: Spironolactone 25 MG Tablet PO (08:13)
[2017-07-11] MEDS: Flecainide 100 MG Tablet 50 MG PO ×2 (08:13→22:47)
[2017-07-11] MEDS: Pantoprazole Sodium 40 MG Tablet PO (08:13)
--- NOTE | 2017-07-11 09:03 | PCM.PN.HOSP ---
Patient Problems: Active and Suspected Problems (Last Reviewed 06/08/17 @ 13:42 by JONNY Cevallos) COPD with acute exacerbation (Acute) Subjective: Patient is a 66-year-old gentleman with history of advanced rheumatoid arthritis with chronic lung disease and fibrosis presented with progressive shortness of breath assessment of COPD exacerbation made admitted to a regular nursing floor for further management Objective: GENERAL: cooperative HEENT: Clear conjunctiva, NECK; supple, normal thyroid, no distended JVD. CHEST: Diminished to auscultation with bibasilar crackles HEART: Regular S1 S2, no audible murmurs ABDOMEN: soft, non-tender, normoactive bowel sounds, RECTAL: deferred EXTREMITIES: No edema, no clubbing, no cyanosis. 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 SKIN: No rash Vitals/I&O's: Vital Signs Temp Pulse Resp BP Pulse Ox 98.2 F 108 H 20 H 126/90 H 99 07/11/17 06:40 07/11/17 08:18 07/11/17 08:18 07/11/17 06:40 07/11/17 06:40 Oxygen Flow Rate (L/min) 2 Oxygen Delivery Method Nasal Cannula Weight: 78.29 kg Body Mass Index (BMI) 27.0 Intake and Output for Last 24 Hours 07/09/17 07/10/17 07/11/17 23:59 23:59 23:59 Intake Total 600 / 600 Balance 600 / 600 Laboratory Results 07/11/17 05:28: Sodium 131 L, Potassium 4.5, Chloride 93 L, Carbon Dioxide 28.0, Anion Gap 10, BUN 29 H, Creatinine 0.99, Estim Creat Clear Calc 69.55, Est GFR (MDRD) Af Amer 97, Est GFR (MDRD) Non-Af 80, BUN/Creatinine Ratio 29.2 H, Glucose 150 H, Calcium 8.7, Total Bilirubin 1.00, AST 26, ALT 49, Alkaline Phosphatase 142 H, Total Protein 6.9, Albumin 3.1 L, Globulin 3.8, Albumin/Globulin Ratio 0.8 L 07/11/17 05:28: WBC 7.2, RBC 3.49 L, Hgb 10.1 L, Hct 32.5 L, MCV 93.1, MCH 28.9, MCHC 31.1 L, RDW 15.9 H, RDW Differential 52.3 H, Plt Count 149 L, MPV 11.6, Immature Gran % (Auto) 0.400, Neut % (Auto) 93.6 H, Lymph % (Auto) 2.5 L, [place] % (Auto) 3.5, Eos % (Auto) 0.0, Baso % (Auto) 0.0, Absolute Neuts (auto) 6.8, Absolute Lymphs (auto) 0.18 L, Total Counted Not Reportable 07/11/17 05:28: PT 41.7 H, INR 4.3 H* Current Medications Acetaminophen (Tylenol) 650 mg PO Q6H PRN PRN PRN Reason: Mild Pain (scale 0-3)/T>100.7 Last Admin: 07/11/17 01:54 Dose: 650 mg Albuterol Sulfate (Ventolin Aerosols) 2.5 mg INHALATION Q2H PRN PRN PRN Reason: SHORTNESS OF BREATH Albuterol/Ipratropium (Duoneb) 3 ml INHALATION Q4H.RT [facility] Last Admin: 07/11/17 07:06 Dose: 3 ml Cyclobenzaprine HCl (Flexeril) 10 mg PO TID PRN PRN PRN Reason: MUSCLE SPASMS Last Admin: 07/11/17 08:15 Dose: 10 mg Ergocalciferol (Vitamin D) 50,000 unit PO FR [facility] Flecainide Acetate (Tambocor) 50 mg PO BID [facility] Last Admin: 07/11/17 08:13 Dose: 50 mg Furosemide (Lasix) 40 mg PO DAILY [facility] Last Admin: 07/11/17 05:26 Dose: 40 mg [facility] Last Admin: 07/11/17 08:11 Dose: 600 mg Hydroxychloroquine S[facility]ate ([facility]aquenil) [facility] Last Admin: 07/11/17 08:11 Dose: 200 mg Magnesium Hydroxide (Milk Of Magnesia) 30 ml PO DAILY PRN PRN PRN Reason: Constipation Methylprednisolone (Solu-Medrol) 40 mg IV Q8 [facility] Last Admin: 07/11/17 05:26 Dose: 40 mg Naproxen (Naprosyn) 500 mg PO BID PRN PRN PRN Reason: MILD PAIN (1-3/10) Last Admin: 07/11/17 05:29 Dose: 500 mg Nitroglycerin (Nitrostat) 0.4 mg SUBLINGUAL Q5M PRN PRN Reason: chest pain Ondansetron HCl (Zofran) 4 mg IV Q8H PRN PRN PRN Reason: Nausea Pantoprazole Sodium (Protonix) 40 mg PO DAILY [facility] Last Admin: 07/11/17 08:13 Dose: 40 mg Potassium Chloride (K-Dur) 20 meq PO DAILY [facility] Last Admin: 07/11/17 08:14 Dose: 20 meq Sodium Chloride () 5 - 30 ml IV UD PRN PRN Reason: SALINE FLUSH Spironolactone (Aldactone) 25 mg PO DAILY [facility] Last Admin: 07/11/17 08:13 Dose: 25 mg Verapamil HCl (Calan Sr) 240 mg PO DAILY [facility] Last Admin: 07/11/17 08:13 Dose: 240 mg Medical Necessity - Tobacco Use Smoking Status: Former smoker Tobacco Use: Cigarettes Assessment/Plan Active and Suspected Problems (Last Reviewed 06/08/17 @ 13:42 by Odalys Espinosa NP-C) COPD with acute exacerbation (Acute) Patient is a 66-year-old gentleman with history of advanced rheumatoid arthritis with chronic lung disease and fibrosis presented with progressive shortness of breath assessment of COPD exacerbation made admitted to a regular nursing floor for further management 1. COPD with acute exacerbation: Patient has been admitted to regular nursing floor managed with bronchodilator treatment, systemic steroid, to biotics. Patient was placed on supplemental oxygen titrated to keep oxygen saturation greater than 90 2. Chronic lung disease with fibrosis secondary to rheumatoid arthritis as well as asbestosis 3. Paroxysmal A. fib patient is on flecainide as well as systemic anticoagulation with Coumadin INR was supratherapeutic on admission subsequently held with daily monitoring of INR 4. Rheumatoid arthritis advanced patient is on Plaquenil as well as prednisone 5. Coagulopathy secondary to Coumadin use 6. DVT prophylaxis patient is on Coumadin no need for additional measures CODE STATUS full code Active Medications Acetaminophen (Tylenol) 650 mg PO Q6H PRN PRN PRN Reason: Mild Pain (scale 0-3)/T>100.7 Last Admin: 07/11/17 01:54 Dose: 650 mg Albuterol Sulfate (Ventolin Aerosols) 2.5 mg INHALATION Q2H PRN PRN PRN Reason: SHORTNESS OF BREATH Albuterol/Ipratropium (Duoneb) 3 ml INHALATION Q4H.RT [facility] Last Admin: 07/11/17 07:06 Dose: 3 ml Cyclobenzaprine HCl (Flexeril) 10 mg PO TID PRN PRN PRN Reason: MUSCLE SPASMS Last Admin: 07/11/17 08:15 Dose: 10 mg Ergocalciferol (Vitamin D) 50,000 unit PO FR [facility] Flecainide Acetate (Tambocor) 50 mg PO BID [facility] Last Admin: 07/11/17 08:13 Dose: 50 mg Furosemide (Lasix) 40 mg PO DAILY [facility] Last Admin: 07/11/17 05:26 Dose: 40 mg [facility]apentin ([facility]) [facility] Last Admin: 07/11/17 08:11 Dose: 600 mg Hydroxychloroquine Sulfate (Plaquenil) [facility] Last Admin: 07/11/17 08:11 Dose: 200 mg Magnesium Hydroxide (Milk Of Magnesia) 30 ml PO DAILY PRN PRN PRN Reason: Constipation Methylprednisolone (Solu-Medrol) 40 mg IV Q8 [facility] Last Admin: 07/11/17 05:26 Dose: 40 mg Naproxen (Naprosyn) 500 mg PO BID PRN PRN PRN Reason: MILD PAIN (1-3/10) Last Admin: 07/11/17 05:29 Dose: 500 mg Nitroglycerin (Nitrostat) 0.4 mg SUBLINGUAL Q5M PRN PRN Reason: chest pain Ondansetron HCl (Zofran) 4 mg IV Q8H PRN PRN PRN Reason: Nausea Pantoprazole Sodium (Protonix) 40 mg PO DAILY [facility] Last Admin: 07/11/17 08:13 Dose: 40 mg Potassium Chloride (K-Dur) 20 meq PO DAILY [facility] Last Admin: 07/11/17 08:14 Dose: 20 meq Sodium Chloride () 5 - 30 ml IV UD PRN PRN Reason: SALINE FLUSH Spironolactone (Aldactone) 25 mg PO DAILY [facility] Last Admin: 07/11/17 08:13 Dose: 25 mg Verapamil HCl (Calan Sr) 240 mg PO DAILY [facility] Last Admin: 07/11/17 08:13 Dose: 240 mg Clinical Impression(s) from Imaging Studies Chest X-Ray 07/10/17 15:34 IMPRESSION: Findings suggesting a mild degree of CHF superimposed on chronic interstitial fibrosis. Electronically Signed: Lm Haddad MD at 15:54 EDT Tel [phone], Service support , Code Visit Inpatient E&M: 25228 Subs Hosp L3
[2017-07-11] MEDS: Doxycycline 100 MG CAPSULE PO ×2 (10:59→22:47)
--- NOTE | 2017-07-11 11:30 | CASEMGMT ---
KELLY VALDEZ Face to Face with patient for initial transition planning/care coordination assessment. KELLY VALDEZ introduced self and role at [facility]. Patient sitting in chair, alert and oriented. Patient willing to participate in assessment and is able to answer all questions appropriately. Care providers, pharmacy, and demographics verified. See link attached. Patient wishes to discharge home with resumption of HHC with [facility]. Patient states he has no further needs or concerns at this time. CM to follow for discharge planning needs that may arise. Disposition Plan: Patient to discharge home with resumption of HHC, family support, and follow-up plans in place.
[2017-07-11] MEDS: 0.9% NaCl Peripheral Flush Adult/Peds IV ×2 (13:32→22:52)
[2017-07-12] VITALS (18 sets, daily range): BP systolic 109–127; BP diastolic 76–98; PULSE 50–130; RESP 16–21; TEMP 36.2–36.5; O2SAT 96–99
[2017-07-12] MEDS: Ipratropium/Albuterol Sulfate 3 ML AMPUL.NEB INHALATION ×6 (02:50→23:23)
[2017-07-12 06:10] LABS: Hematocrit 30.6 % (40-54); Hemoglobin 9.6 g/dl (13.0-16.5); Mean Corp Hgb Conc 31.4 g/gl (32-36); Mean Corpuscular Hgb 29.1 pg (27.0-32.0); Mean Corpuscular Volume 92.7 fL (80-94); Mean Platelet Vol. 11.7 fl (6.2-12.0); Platelet Count 180 K/mm3 (150-450); RBC Distribution Width SD 52.8 fl (35.1-43.9); White Blood Count 14.4 K/mm3 (4.4-11.0)
[2017-07-12 06:17] LABS: Prothrombin Time (Protime)PT. 38.9 SECONDS (11.7-14.9)
[2017-07-12 06:18] LABS: Scan Indicated on CBC? Y/N NO
[2017-07-12 06:35] LABS: Anion Gap 10 (5-15); BUN 59 mg/dL (7-18); BUN/Creat Ratio 25.1 RATIO (10-20); Calcium,Total 8.8 mg/dL (8.5-10.1); Chloride 94 mmol/L (98-107); Creatinine, Serum 2.35 mg/dL (0.70-1.30); EST Glomerular Filtration Rate 30 mL/min (>60); Est Glom Filt Rate - Afr Amer 36 mL/min (>60); Glucose 165 mg/dL (74-106); Magnesium 2.4 mg/dL (1.6-2.6); Potassium 5.1 mmol/L (3.5-5.1); Sodium Level 131 mmol/L (136-145)
--- NOTE | 2017-07-12 08:25 | PCM.PN.HOSP ---
Patient Problems: Active and Suspected Problems (Last Reviewed 06/08/17 @ 13:42 by JONNY Cevallos) COPD with acute exacerbation (Acute) Subjective: Patient seen admitted to some improvement in his breathing however his kidney function has significantly worsened patient is on both Aldactone NSAIDs and Lasix the suspected offending medications held. His INR also remains elevated. Objective: GENERAL: cooperative HEENT: Clear conjunctiva, NECK; supple, normal thyroid, no distended JVD. CHEST: Diminished to auscultation with bibasilar crackles HEART: Regular S1 S2, no audible murmurs ABDOMEN: soft, non-tender, normoactive bowel sounds, RECTAL: deferred EXTREMITIES: No edema, no clubbing, no cyanosis. 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 SKIN: No rash Vitals/I&O's: Vital Signs Temp Pulse Resp BP Pulse Ox 97.4 F L 88 21 H 109/76 96 07/12/17 03:40 07/12/17 07:20 07/12/17 07:20 07/12/17 03:40 07/12/17 07:42 Oxygen Flow Rate (L/min) 2 Oxygen Delivery Method Nasal Cannula Weight: 78.29 kg Body Mass Index (BMI) 27.0 Intake and Output for Last 24 Hours 07/10/17 07/11/17 07/12/17 23:59 23:59 23:59 Intake Total 600 / 600 720 / 720 Balance 600 / 600 720 / 720 Laboratory Results 07/12/17 05:40: WBC 14.4 H, RBC 3.30 L, Hgb 9.6 L, Hct 30.6 L, MCV 92.7, MCH 29.1, MCHC 31.4 L, RDW 16.0 H, RDW Differential 52.8 H, Plt Count 180, MPV 11.7 07/12/17 05:40: PT 38.9 H, INR 4.0 H* 07/12/17 05:40: Sodium 131 L, Potassium 5.1, Chloride 94 L, Carbon Dioxide 27.0, Anion Gap 10, BUN 59 H, Creatinine 2.35 H, Estim Creat Clear Calc 29.30, Est GFR (MDRD) Af Amer 36 L, Est GFR (MDRD) Non-Af 30 L, BUN/Creatinine Ratio 25.1 H, Glucose 165 H, Calcium 8.8, Magnesium 2.4 Current Medications Acetaminophen (Tylenol) 650 mg PO Q6H PRN PRN PRN Reason: Mild Pain (scale 0-3)/T>100.7 Last Admin: 07/11/17 22:47 Dose: 650 mg Albuterol Sulfate (Ventolin Aerosols) 2.5 mg INHALATION Q2H PRN PRN PRN Reason: SHORTNESS OF BREATH Albuterol/Ipratropium (Duoneb) 3 ml INHALATION Q4H.RT [facility] Last Admin: 07/12/17 07:05 Dose: 3 ml Cyclobenzaprine HCl (Flexeril) 10 mg PO TID PRN PRN PRN Reason: MUSCLE SPASMS Last Admin: 07/11/17 22:47 Dose: 10 mg Doxycycline Monohydrate (Doxycycline) 100 mg PO BID [facility] Last Admin: 07/11/17 22:47 Dose: 100 mg Ergocalciferol (Vitamin D) 50,000 unit PO [facility] Flecainide Acetate (Tambocor) 50 mg PO BID [facility] Last Admin: 07/11/17 22:47 Dose: 50 mg [facility]) [facility] Last Admin: 07/11/17 18:38 Dose: 600 mg Hydroxychloroquine Sulfate (Plaquenil) [facility] Last Admin: 07/11/17 18:38 Dose: 200 mg Sodium Chloride () 1,000 mls @ 100 mls/hr IV .Q10H [facility] Stop: 07/13/17 04:19 Magnesium Hydroxide (Milk Of Magnesia) 30 ml PO DAILY PRN PRN PRN Reason: Constipation Nitroglycerin (Nitrostat) 0.4 mg SUBLINGUAL Q5M PRN PRN Reason: chest pain Ondansetron HCl (Zofran) 4 mg IV Q8H PRN PRN PRN Reason: Nausea Pantoprazole Sodium (Protonix) 40 mg PO DAILY [facility] Last Admin: 07/11/17 08:13 Dose: 40 mg Potassium Chloride (K-Dur) 20 meq PO DAILY [facility] Last Admin: 07/11/17 08:14 Dose: 20 meq Prednisone () [facility] Sodium Chloride () 5 - 30 ml IV UD PRN PRN Reason: SALINE FLUSH Last Admin: 07/11/17 22:52 Dose: 10 ml Verapamil HCl (Calan Sr) 240 mg PO DAILY [facility] Last Admin: 07/11/17 08:13 Dose: 240 mg Medical Necessity - Tobacco Use Smoking Status: Former smoker Tobacco Use: Cigarettes Assessment/Plan Active and Suspected Problems (Last Reviewed 06/08/17 @ 13:42 by Odalys Espinosa NP-C) COPD with acute exacerbation (Acute) Patient is a 66-year-old gentleman with history of advanced rheumatoid arthritis with chronic lung disease and fibrosis presented with progressive shortness of breath assessment of COPD exacerbation made admitted to a regular nursing floor for further management 1. COPD with acute exacerbation: Patient has been admitted to regular nursing floor managed with bronchodilator treatment, systemic steroid, to biotics. Patient was placed on supplemental oxygen titrated to keep oxygen saturation greater than 90 2. Chronic lung disease with fibrosis secondary to rheumatoid arthritis as well as asbestosis 3. Paroxysmal A. fib patient is on flecainide as well as systemic anticoagulation with Coumadin INR was supratherapeutic on admission subsequently held with daily monitoring of INR 4. Rheumatoid arthritis advanced patient is on Plaquenil as well as prednisone 5. Coagulopathy secondary to Coumadin use 6. DVT prophylaxis patient is on Coumadin no need for additional measures 7. Chronic hypoxic respiratory failure secondary to patient chronic lung disease patient on baseline home O2 8. Acute kidney injury secondary to use of NSAIDs Aldactone as well as Lasix the suspected offending medications discontinued patient started on IV fluids with monitoring of electrolyte CODE STATUS full code Active Medications Acetaminophen (Tylenol) 650 mg PO Q6H PRN PRN PRN Reason: Mild Pain (scale 0-3)/T>100.7 Last Admin: 07/11/17 01:54 Dose: 650 mg Albuterol Sulfate (Ventolin Aerosols) 2.5 mg INHALATION Q2H PRN PRN PRN Reason: SHORTNESS OF BREATH Albuterol/Ipratropium (Duoneb) 3 ml INHALATION Q4H.RT [facility] Last Admin: 07/11/17 07:06 Dose: 3 ml Cyclobenzaprine HCl (Flexeril) 10 mg PO TID PRN PRN PRN Reason: MUSCLE SPASMS Last Admin: 07/11/17 08:15 Dose: 10 mg Ergocalciferol (Vitamin D) 50,000 unit PO FR [facility] Flecainide Acetate (Tambocor) 50 mg PO BID [facility] Last Admin: 07/11/17 08:13 Dose: 50 mg Furosemide (Lasix) 40 mg PO DAILY [facility] Last Admin: 07/11/17 05:26 Dose: 40 mg Gabapentin ([facility]urontin) [facility] Last Admin: 07/11/17 08:11 Dose: 600 mg Hydroxychloroquine Sulfate (Plaquenil) 200 mg PO BIDCM [facility] Last Admin: 07/11/17 08:11 Dose: 200 mg Magnesium Hydroxide (Milk Of Magnesia) 30 ml PO DAILY PRN PRN PRN Reason: Constipation Methylprednisolone (Solu-Medrol) 40 mg IV Q8 [facility] Last Admin: 07/11/17 05:26 Dose: 40 mg Naproxen (Naprosyn) 500 mg PO BID PRN PRN PRN Reason: MILD PAIN (1-3) Last Admin: 07/11/17 05:29 Dose: 500 mg Nitroglycerin (Nitrostat) 0.4 mg SUBLINGUAL Q5M PRN PRN Reason: chest pain Ondansetron HCl (Zofran) 4 mg IV Q8H PRN PRN PRN Reason: Nausea Pantoprazole Sodium (Protonix) 40 mg PO DAILY [facility] Last Admin: 07/11/17 08:13 Dose: 40 mg Potassium Chloride (K-Dur) 20 meq PO DAILY [facility] Last Admin: 07/11/17 08:14 Dose: 20 meq Sodium Chloride () 5 - 30 ml IV UD PRN PRN Reason: SALINE FLUSH Spironolactone (Aldactone) 25 mg PO DAILY [facility] Last Admin: 07/11/17 08:13 Dose: 25 mg Verapamil HCl (Calan Sr) 240 mg PO DAILY [facility] Last Admin: 07/11/17 08:13 Dose: 240 mg Clinical Impression(s) from Imaging Studies Chest X-Ray 07/10/17 15:34 IMPRESSION: Findings suggesting a mild degree of CHF superimposed on chronic interstitial fibrosis. Electronically Signed: Lm Haddad MD at 15:54 EDT Tel [phone], Service support , Code Visit Inpatient E&M: 82109 [facility] Hosp L3
[2017-07-12] MEDS: Pantoprazole Sodium 40 MG Tablet PO (08:53)
[2017-07-12] MEDS: Verapamil SR 240 MG Tablet PO (08:54)
[2017-07-12] MEDS: Doxycycline 100 MG CAPSULE PO ×2 (08:54→21:41)
[2017-07-12] MEDS: Flecainide 100 MG Tablet 50 MG PO ×2 (08:55→21:41)
[2017-07-12] MEDS: Gabapentin 300 MG Capsule 600 MG PO ×2 (08:57→17:14)
[2017-07-12] MEDS: 0.9% Normal Saline 1,000 ML 100 ML IV ×2 (08:59→19:36)
[2017-07-12] MEDS: 0.9% NaCl Peripheral Flush Adult/Peds IV (09:20)
[2017-07-12] MEDS: Hydroxychloroquine 200 MG Tablet PO ×2 (09:20→17:14)
[2017-07-12] MEDS: Acetaminophen 325 MG Tablet 650 MG PO (15:56)
[2017-07-12] MEDS: predniSONE 20 MG Tablet PO (17:14)
[2017-07-13] VITALS (15 sets, daily range): BP systolic 107–114; BP diastolic 77–96; PULSE 76–129; RESP 12–24; TEMP 36.3–36.7; O2SAT 98–100
[2017-07-13] MEDS: Ipratropium/Albuterol Sulfate 3 ML AMPUL.NEB INHALATION ×6 (03:08→23:24)
[2017-07-13 06:10] LABS: Hematocrit 30.7 % (40-54); Hemoglobin 9.7 g/dl (13.0-16.5); Mean Corp Hgb Conc 31.6 g/gl (32-36); Mean Corpuscular Hgb 29.7 pg (27.0-32.0); Mean Corpuscular Volume 93.9 fL (80-94); Mean Platelet Vol. 11.2 fl (6.2-12.0); Platelet Count 171 K/mm3 (150-450); RBC Distribution Width CV 16.2 % (11.6-14.6); RBC Distribution Width SD 53.1 fl (35.1-43.9); Red Blood Count 3.27 M/mm3 (4.6-6.2); White Blood Count 11.5 K/mm3 (4.4-11.0)
[2017-07-13 06:11] LABS: Prothrombin Time (Protime)PT. 31.5 SECONDS (11.7-14.9); Scan Indicated on CBC? Y/N NO
[2017-07-13 06:29] LABS: Anion Gap 7 (5-15); BUN 72 mg/dL (7-18); BUN/Creat Ratio 29.4 RATIO (10-20); Calcium,Total 8.6 mg/dL (8.5-10.1); Chloride 97 mmol/L (98-107); Creatinine, Serum 2.45 mg/dL (0.70-1.30); EST Glomerular Filtration Rate 28 mL/min (>60); Est Glom Filt Rate - Afr Amer 34 mL/min (>60); Glucose 134 mg/dL (74-106); Potassium 5.4 mmol/L (3.5-5.1); Sodium Level 131 mmol/L (136-145)
[2017-07-13] MEDS: Hydroxychloroquine 200 MG Tablet PO ×2 (08:13→16:50)
[2017-07-13] MEDS: Gabapentin 300 MG Capsule 600 MG PO ×2 (08:13→16:50)
[2017-07-13] MEDS: predniSONE 20 MG Tablet PO ×2 (08:13→16:51)
--- NOTE | 2017-07-13 08:17 | PN_ITS ---
Patient Problems: Active and Suspected Problems (Last Reviewed 06/08/17 @ 13:42 by JONNY Cevallos) COPD with acute exacerbation (Acute) Subjective: Patient seen, breathing continues to improve however his kidney function is worsening did receive IV fluid overnight without much improvement in his kidney function consultation was therefore placed to nephrology. Potassium is also 5.4 this morning patient is on p.o. potassium supplement subsequently discontinued Objective: GENERAL: cooperative HEENT: Clear conjunctiva, NECK; supple, normal thyroid, no distended JVD. CHEST: Diminished to auscultation with bibasilar crackles HEART: Regular S1 S2, no audible murmurs ABDOMEN: soft, non-tender, normoactive bowel sounds, RECTAL: deferred EXTREMITIES: No edema, no clubbing, no cyanosis. 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 SKIN: No rash Vitals/I&O's: Vital Signs Temp Pulse Resp BP Pulse Ox 97.9 F 129 H 18 114/94 H 98 07/13/17 03:20 07/13/17 07:13 07/13/17 03:20 07/13/17 03:20 07/13/17 03:20 Oxygen Flow Rate (L/min) 2 Oxygen Delivery Method Nasal Cannula Weight: 78.29 kg Body Mass Index (BMI) 27.0 Intake and Output for Last 24 Hours 07/11/17 07/12/17 07/13/17 23:59 23:59 23:59 Intake Total 600 / 600 2715 / 2715 1684 / 1684 Balance 600 / 600 2715 / 2715 1684 / 1684 Laboratory Results 07/13/17 05:40: WBC 11.5 H, RBC 3.27 L, Hgb 9.7 L, Hct 30.7 L, MCV 93.9, MCH 29.7, MCHC 31.6 L, RDW 16.2 H, RDW Differential 53.1 H, Plt Count 171, MPV 11.2 07/13/17 05:40: PT 31.5 H, INR 3.0 07/13/17 05:40: Sodium 131 L, Potassium 5.4 H, Chloride 97 L, Carbon Dioxide 27.0, Anion Gap 7, BUN 72 H, Creatinine 2.45 H, Estim Creat Clear Calc 28.10, Est GFR (MDRD) Af Amer 34 L, Est GFR (MDRD) Non-Af 28 L, BUN/Creatinine Ratio 29.4 H, Glucose 134 H, Calcium 8.6 Current Medications Acetaminophen (Tylenol) 650 mg PO Q6H PRN PRN PRN Reason: Mild Pain (scale 0-3)/T>100.7 Last Admin: 07/12/17 15:56 Dose: 650 mg Albuterol Sulfate (Ventolin Aerosols) 2.5 mg INHALATION Q2H PRN PRN PRN Reason: SHORTNESS OF BREATH Albuterol/Ipratropium (Duoneb) 3 ml INHALATION Q4H.RT [facility] Last Admin: 07/13/17 07:26 Dose: 3 ml Cyclobenzaprine HCl (Flexeril) 10 mg PO TID PRN PRN PRN Reason: MUSCLE SPASMS Last Admin: 07/11/17 22:47 Dose: 10 mg Doxycycline Monohydrate (Doxycycline) 100 mg PO BID [facility] Last Admin: 07/12/17 21:41 Dose: 100 mg Ergocalciferol (Vitamin D) 50,000 unit PO [facility] Flecainide Acetate (Tambocor) 50 mg PO BID [facility] Last Admin: 07/12/17 21:41 Dose: 50 mg [facility] Last Admin: 07/13/17 08:13 Dose: 600 mg [facility] Last Admin: 07/13/17 08:13 Dose: 200 mg Magnesium Hydroxide (Milk Of Magnesia) 30 ml PO DAILY PRN PRN PRN Reason: Constipation Nitroglycerin (Nitrostat) 0.4 mg SUBLINGUAL Q5M PRN PRN Reason: chest pain Ondansetron HCl (Zofran) 4 mg IV Q8H PRN PRN PRN Reason: Nausea Pantoprazole Sodium (Protonix) 40 mg PO DAILY [facility] Last Admin: 07/12/17 08:53 Dose: 40 mg Potassium Chloride (K-Dur) 20 meq PO DAILY [facility] Last Admin: 07/12/17 08:53 Dose: 20 meq [facility] () [facility] Last Admin: 07/13/17 08:13 Dose: 20 mg Sodium Chloride () 5 - 30 ml IV UD PRN PRN Reason: SALINE FLUSH Last Admin: 07/12/17 09:20 Dose: 10 ml Verapamil HCl (Calan Sr) 240 mg PO DAILY [facility] Last Admin: 07/12/17 08:54 Dose: 240 mg Medical Necessity - Tobacco Use Smoking Status: Former smoker Tobacco Use: Cigarettes Assessment/Plan Active and Suspected Problems (Last Reviewed 06/08/17 @ 13:42 by Odalys Espinosa NP-C) COPD with acute exacerbation (Acute) Patient is a 66-year-old gentleman with history of advanced rheumatoid arthritis with chronic lung disease and fibrosis presented with progressive shortness of breath assessment of COPD exacerbation made admitted to a regular nursing floor for further management 1. COPD with acute exacerbation: Patient has been admitted to regular nursing floor managed with bronchodilator treatment, systemic steroid, to biotics. Patient was placed on supplemental oxygen titrated to keep oxygen saturation greater than 90 2. Chronic lung disease with fibrosis secondary to rheumatoid arthritis as well as asbestosis 3. Paroxysmal A. fib patient is on flecainide as well as systemic anticoagulation with Coumadin INR was supratherapeutic on admission subsequently held with daily monitoring of INR 4. Rheumatoid arthritis advanced patient is on Plaquenil as well as prednisone 5. Coagulopathy secondary to Coumadin use 6. DVT prophylaxis patient is on Coumadin no need for additional measures 7. Chronic hypoxic respiratory failure secondary to patient chronic lung disease patient on baseline home O2 8. Acute kidney injury secondary to use of NSAIDs Aldactone as well as Lasix the suspected offending medications discontinued patient started on IV fluids with monitoring of electrolyte consultation placed to Dr. Santiago with nephrology 9. Hyperkalemia secondary to use of potassium supplementation; discontinued CODE STATUS full code Code Visit Inpatient E&M: 48871 Subs Hosp L3
--- NOTE | 2017-07-13 09:29 | EKG12_ITS ---
Test Reason : Blood Pressure : / mmHG Vent. Rate : 124 BPM Atrial Rate : 136 BPM P-R Int : 000 ms QRS Dur : 124 ms QT Int : 370 ms P-R-T Axes : 000 262 040 degrees QTc Int : 531 ms Atrial fibrillation Abnormal ECG When compared with ECG of 10-JUL-2017 15:58, Questionable change in QRS axis Nonspecific T wave abnormality no longer evident in Inferior leads Confirmed by ALBERTA SAWYER, LOUIE ([id number]), production editor RADHA BAL ([id number]) on 07/21/2017 3:01:41 PM Referred By: KELLI Confirmed By:LOUIE PINZON MD
--- NOTE | 2017-07-13 09:30 | NURSING ---
noted alarms on monitor reading VTach, noted appears Afib with BBB HR 150's. In to see pt, noted SOB o2 maintained. pt states just ambulated with Physical Therapy just about ran Pt denies all Chestpain. Primary RN informed requested she come to room. CPS called to get EKG. Primary RN to assess patient/ get vital signs. Physician sent message (please see intervention) Again pt denies all symptoms and SOB improving with rest.
[2017-07-13] MEDS: Verapamil SR 240 MG Tablet PO (10:17)
[2017-07-13] MEDS: Doxycycline 100 MG CAPSULE PO ×2 (10:18→21:11)
[2017-07-13] MEDS: Pantoprazole Sodium 40 MG Tablet PO (10:18)
[2017-07-13] MEDS: Flecainide 100 MG Tablet 50 MG PO ×2 (10:18→21:11)
--- NOTE | 2017-07-13 15:07 | PCM.CONS.R ---
Consultation - Renal 07/13/17 PCP/ Referring MD: Requesting physician: Stanford Johnston Primary care physician: Jessenia Rios Reason for Consultation:: FEI - History of Present Illness History of Present Illness: The patient is a 66 year old M admitted on 07/10 for shortness of breath. He had been treated with steroids and antibiotics for acute exacerbation of COPD. He denied any fever or chills. Denied any chest pain. He does have slightly increased lower extremity edema on prednisone. He has a history of paroxysmal atrial fibrillation. He has tachyarrhythmia with heart rate in the 110 to 120 with palpitations. He is on Tambocor. He does have increased shortness of breath with exertion. He had worsening renal function with serum creatinine 0.97 on admission and on July 11 increased to 2.35 on July 12 then 2.45 today. He denies any urinary complaints to suggest BPH symptoms. Potassium level is mildly elevated at 5.4. His Lasix and Naprosyn was discontinued on July 11. Potassium level was discontinued yesterday. He received IV fluid yesterday. He has crippling rheumatoid arthritis on Plaquenil and chronic steroids at home. He has a history of tobacco use quit 2008. He is on home oxygen past 6 weeks. He denied any thirst, nausea, vomiting. No recent IV contrast exposure. - Allergies Allergies: Allergies No Known Allergies Allergy (Verified 07/10/17 15:20) - Current Medications Current Medications: Current Medications Acetaminophen (Tylenol) 650 mg PO Q6H PRN PRN PRN Reason: Mild Pain (scale 0-3)/T>100.7 Last Admin: 07/12/17 15:56 Dose: 650 mg Albuterol Sulfate (Ventolin Aerosols) 2.5 mg INHALATION Q2H PRN PRN PRN Reason: SHORTNESS OF BREATH Albuterol/Ipratropium (Duoneb) 3 ml INHALATION Q4H.RT [facility] Last Admin: 07/13/17 11:03 Dose: 3 ml Cyclobenzaprine HCl (Flexeril) 10 mg PO TID PRN PRN PRN Reason: MUSCLE SPASMS Last Admin: 07/11/17 22:47 Dose: 10 mg Doxycycline Monohydrate (Doxycycline) 100 mg PO BID [facility] Last Admin: 07/13/17 10:18 Dose: 100 mg Ergocalciferol (Vitamin D) 50,000 unit PO FR [facility] Flecainide Acetate (Tambocor) 50 mg PO BID [facility] Last Admin: 07/13/17 10:18 Dose: 50 [facility] Last Admin: 07/13/17 08:13 Dose: 600 mg [facility]xychloroquine [facility] ([facility]il) [facility] Last Admin: 07/13/17 08:13 Dose: 200 mg Magnesium Hydroxide (Milk Of Magnesia) 30 ml PO DAILY PRN PRN PRN Reason: Constipation Nitroglycerin (Nitrostat) 0.4 mg SUBLINGUAL Q5M PRN PRN Reason: chest pain Ondansetron HCl (Zofran) 4 mg IV Q8H PRN PRN PRN Reason: Nausea Pantoprazole Sodium (Protonix) 40 mg PO DAILY [facility] Last Admin: 07/13/17 10:18 Dose: 40 mg [facility] () [facility] Last Admin: 07/13/17 08:13 Dose: 20 mg Sodium Chloride () 5 - 30 ml IV UD PRN PRN Reason: SALINE FLUSH Last Admin: 07/12/17 09:20 Dose: 10 ml Verapamil HCl (Calan Sr) 240 mg PO DAILY [facility] Last Admin: 07/13/17 10:17 Dose: 240 mg - Past Medical History Past Medical History (Chronic Problems): Chronic Problems (Last Reviewed 06/08/17 @ 13:42 by JONNY Cevallos) Chronic obstructive pulmonary disease (Chronic) CAD (coronary artery disease) (Chronic) CHF (congestive heart failure) (Chronic) Borderline type 2 diabetes mellitus (Chronic) PAF (paroxysmal atrial fibrillation) (Chronic) Rheumatoid arthritis (Chronic) H/O asbestosis (Chronic) - Past Surgical History Surgical History: - - Notes calcium deposit removal otherwise no surgical history. - Social History Smoking Status: Former smoker - Quit 2008 Alcohol: None Drugs: None - Family History Maternal Family History: Family History (Last Reviewed 06/08/17 @ 13:42 by JONNY Cevallos) Father COPD (chronic obstructive pulmonary disease) Diabetes Mother Leukemia Heart disease History Items: Cancer Paternal Family History: Family History (Last Reviewed 06/08/17 @ 13:42 by JONNY Cevallos) Father COPD (chronic obstructive pulmonary disease) Diabetes Mother Leukemia Heart disease History Items: Diabetes, Pulmonary Disease Review of Systems Constitutional: Denies: Anorexia, Chills, Fever, Weakness, Fatigue Eyes: Denies: Blurred vision HEENT: Denies: Difficulty Hearing Cardiovascular: Reports: Edema, Palpitations. Denies: Chest Pain, Syncope Respiratory: Reports: Shortness of breath at rest, Shortness of breath upon exertion. Denies: Cough, Hemoptysis, Wheezing Gastrointestinal: Reports: Constipation. Denies: Abdominal Pain, Diarrhea, Nausea, Vomiting Genitourinary: Denies: Dysuria, Frequency, Retention Musculoskeletal: Reports: - - Joint pain, rheumatoid arthritis with deformities in his hands and feet Skin: Reports: - - Diffuse ecchymosis. Denies: Rash Neurological: Denies: Balance problems, Tremor, Seizures Psychiatric: Denies: Anxiety, Depression Hematologic/ Lymphatic: Denies: Anemia, Hx of blood clot Patient Problems: Active and Suspected Problems (Last Reviewed 06/08/17 @ 13:42 by Odalys Espinosa NP-C) COPD with acute exacerbation (Acute) - Physical Exam General: Alert, Oriented x3, Cooperative, No apparent distress HEENT: PERRLA, EOMI Oral: Dry Mucosa Neck: Supple Lungs: Rales - bibasilar Cardiovascular: Irregular Rate - Atrial fibrillation with RVR Abdomen: Bowel Sounds Present, Soft, Non Tender, Non-Distended, Obese Extremities: Edema - Mild edema Skin: - - Ecchymosis Musculoskeletal: No Muscle Wasting, Arthritic Changes - Deformity from rheumatoid arthritis in his hands and feet Lymphatic: No Cervical, Supraclavicular, or Inguinal Adenopathy Neurological: Cranial nerves II-XII grossly intact Psych/Mental Status: Normal Affect, Appropriate, Alert and oriented to time, place, person, mood and affect Vital Signs Temp Pulse Resp BP Pulse Ox 97.4 F L 126 H 20 H 114/87 H 100 07/13/17 09:36 07/13/17 11:03 07/13/17 11:03 07/13/17 09:36 07/13/17 09:36 Oxygen Flow Rate (L/min) 4 Oxygen Delivery Method Nasal Cannula Weight: 78.29 kg Body Mass Index (BMI) 27.0 Intake and Output for Last 24 Hours 07/11/17 07/12/17 07/13/17 23:59 23:59 23:59 Intake Total 600 / 600 2715 / 2715 1684 / 1684 Balance 600 / 600 2715 / 2715 1684 / 1684 Laboratory Tests Past 24 Hrs 07/13/17 07/13/17 07/13/17 05:40 05:40 05:40 WBC 11.5 H RBC 3.27 L Hgb 9.7 L Hct 30.7 L MCV 93.9 MCH 29.7 MCHC 31.6 L RDW 16.2 H RDW Differential 53.1 H Plt Count 171 MPV 11.2 PT 31.5 H INR 3.0 Sodium 131 L Potassium 5.4 H Chloride 97 L Carbon Dioxide 27.0 Anion Gap 7 BUN 72 H Creatinine 2.45 H Estim Creat Clear Calc 28.10 Est GFR (MDRD) Af Amer 34 L Est GFR (MDRD) Non-Af 28 L BUN/Creatinine Ratio 29.4 H Glucose 134 H Calcium 8.6 Clinical Impression(s) from Imaging Studies Chest X-Ray 07/10/17 15:34 IMPRESSION: Findings suggesting a mild degree of CHF superimposed on chronic interstitial fibrosis. Electronically Signed: Lm Haddad MD at 15:54 EDT Tel [phone], Service support , Assessment/Plan Active and Suspected Problems (Last Reviewed 06/08/17 @ 13:42 by Odalys Espinosa NP-C) COPD with acute exacerbation (Acute) 1. Acute kidney injury with baseline creatinine 0.97 increased to 2.35 on July 12 then 2.45 today. No recent IV contrast exposure. Suspect due to hemodynamic changes from medications and A. fib with RVR. Lasix and Naprosyn discontinued. Patient received IV fluids overnight. Check spot urine sodium, creatinine for FENA. May need more fluids. Avoid nephrotoxins, NSAIDs. 2. Hyperkalemia potassium supplements discontinued. Follow low potassium diet. Kayexalate ?1 dose. 3. COPD exacerbation on doxycycline and prednisone. 4. Rheumatoid arthritis on Plaquenil and chronic steroids at home. 5. Hyponatremia sodium 131. Check urine sodium. May need free water restriction. 6. Atrial fibrillation with rapid ventricular response on Tambocor. Primary care management. 7. CAD currently asymptomatic.
--- NOTE | 2017-07-13 15:17 | CON.PCM_ITS ---
Consultation - Renal 07/13/17 PCP/ Referring MD: Requesting physician: Stanford Johnston Primary care physician: Jessenia Rios Reason for Consultation:: FEI - History of Present Illness History of Present Illness: The patient is a 66 year old M admitted on 07/10 for shortness of breath. He had been treated with steroids and antibiotics for acute exacerbation of COPD. He denied any fever or chills. Denied any chest pain. He does have slightly increased lower extremity edema on prednisone. He has a history of paroxysmal atrial fibrillation. He has tachyarrhythmia with heart rate in the 110 to 120 with palpitations. He is on Tambocor. He does have increased shortness of breath with exertion. He had worsening renal function with serum creatinine 0.97 on admission and on July 11 increased to 2.35 on July 12 then 2.45 today. He denies any urinary complaints to suggest BPH symptoms. Potassium level is mildly elevated at 5.4. His Lasix and Naprosyn was discontinued on July 11. Potassium level was discontinued yesterday. He received IV fluid yesterday. He has crippling rheumatoid arthritis on Plaquenil and chronic steroids at home. He has a history of tobacco use quit 2008. He is on home oxygen past 6 weeks. He denied any thirst, nausea, vomiting. No recent IV contrast exposure. - Allergies Allergies: Allergies No Known Allergies Allergy (Verified 07/10/17 15:20) - Current Medications Current Medications: Current Medications Acetaminophen (Tylenol) 650 mg PO Q6H PRN PRN PRN Reason: Mild Pain (scale 0-3)/T>100.7 Last Admin: 07/12/17 15:56 Dose: 650 mg Albuterol Sulfate (Ventolin Aerosols) 2.5 mg INHALATION Q2H PRN PRN PRN Reason: SHORTNESS OF BREATH Albuterol/Ipratropium (Duoneb) 3 ml INHALATION Q4H.RT [facility] Last Admin: 07/13/17 11:03 Dose: 3 ml Cyclobenzaprine HCl (Flexeril) 10 mg PO TID PRN PRN PRN Reason: MUSCLE SPASMS Last Admin: 07/11/17 22:47 Dose: 10 mg Doxycycline Monohydrate (Doxycycline) 100 mg PO BID [facility] Last Admin: 07/13/17 10:18 Dose: 100 mg Ergocalciferol (Vitamin D) 50,000 unit PO FR [facility] Flecainide Acetate (Tambocor) 50 mg PO BID [facility] Last Admin: 07/13/17 10:18 Dose: 50 mg [facility] Last Admin: 07/13/17 08:13 Dose: 600 mg [facility]xychloroquine [facility] ([facility]il) [facility] Last Admin: 07/13/17 08:13 Dose: 200 mg Magnesium Hydroxide (Milk Of Magnesia) 30 ml PO DAILY PRN PRN PRN Reason: Constipation Nitroglycerin (Nitrostat) 0.4 mg SUBLINGUAL Q5M PRN PRN Reason: chest pain Ondansetron HCl (Zofran) 4 mg IV Q8H PRN PRN PRN Reason: Nausea Pantoprazole Sodium (Protonix) 40 mg PO DAILY [facility] Last Admin: 07/13/17 10:18 Dose: 40 mg [facility] () [facility] Last Admin: 07/13/17 08:13 Dose: 20 mg Sodium Chloride () 5 - 30 ml IV UD PRN PRN Reason: SALINE FLUSH Last Admin: 07/12/17 09:20 Dose: 10 ml Verapamil HCl (Calan Sr) 240 mg PO DAILY [facility] Last Admin: 07/13/17 10:17 Dose: 240 mg - Past Medical History Past Medical History (Chronic Problems): Chronic Problems (Last Reviewed 06/08/17 @ 13:42 by JONNY Cevallos) Chronic obstructive pulmonary disease (Chronic) CAD (coronary artery disease) (Chronic) CHF (congestive heart failure) (Chronic) Borderline type 2 diabetes mellitus (Chronic) PAF (paroxysmal atrial fibrillation) (Chronic) Rheumatoid arthritis (Chronic) H/O asbestosis (Chronic) - Past Surgical History Surgical History: - - Notes calcium deposit removal otherwise no surgical history. - Social History Smoking Status: Former smoker - Quit 2008 Alcohol: None Drugs: None - Family History Maternal Family History: Family History (Last Reviewed 06/08/17 @ 13:42 by JONNY Cevallos) Father COPD (chronic obstructive pulmonary disease) Diabetes Mother Leukemia Heart disease History Items: Cancer Paternal Family History: Family History (Last Reviewed 06/08/17 @ 13:42 by JONNY Cevallos) Father COPD (chronic obstructive pulmonary disease) Diabetes Mother Leukemia Heart disease History Items: Diabetes, Pulmonary Disease Review of Systems Constitutional: Denies: Anorexia, Chills, Fever, Weakness, Fatigue Eyes: Denies: Blurred vision HEENT: Denies: Difficulty Hearing Cardiovascular: Reports: Edema, Palpitations. Denies: Chest Pain, Syncope Respiratory: Reports: Shortness of breath at rest, Shortness of breath upon exertion. Denies: Cough, Hemoptysis, Wheezing Gastrointestinal: Reports: Constipation. Denies: Abdominal Pain, Diarrhea, Nausea, Vomiting Genitourinary: Denies: Dysuria, Frequency, Retention Musculoskeletal: Reports: - - Joint pain, rheumatoid arthritis with deformities in his hands and feet Skin: Reports: - - Diffuse ecchymosis. Denies: Rash Neurological: Denies: Balance problems, Tremor, Seizures Psychiatric: Denies: Anxiety, Depression Hematologic/ Lymphatic: Denies: Anemia, Hx of blood clot Patient Problems: Active and Suspected Problems (Last Reviewed 06/08/17 @ 13:42 by Odalys Espinosa NP-C) COPD with acute exacerbation (Acute) - Physical Exam General: Alert, Oriented x3, Cooperative, No apparent distress HEENT: PERRLA, EOMI Oral: Dry Mucosa Neck: Supple Lungs: Rales - bibasilar Cardiovascular: Irregular Rate - Atrial fibrillation with RVR Abdomen: Bowel Sounds Present, Soft, Non Tender, Non-Distended, Obese Extremities: Edema - Mild edema Skin: - - Ecchymosis Musculoskeletal: No Muscle Wasting, Arthritic Changes - Deformity from rheumatoid arthritis in his hands and feet Lymphatic: No Cervical, Supraclavicular, or Inguinal Adenopathy Neurological: Cranial nerves II-XII grossly intact Psych/Mental Status: Normal Affect, Appropriate, Alert and oriented to time, place, person, mood and affect Vital Signs Temp Pulse Resp BP Pulse Ox 97.4 F L 126 H 20 H 114/87 H 100 07/13/17 09:36 07/13/17 11:03 07/13/17 11:03 07/13/17 09:36 07/13/17 09:36 Oxygen Flow Rate (L/min) 4 Oxygen Delivery Method Nasal Cannula Weight: 78.29 kg Body Mass Index (BMI) 27.0 Intake and Output for Last 24 Hours 07/11/17 07/12/17 07/13/17 23:59 23:59 23:59 Intake Total 600 / 600 2715 / 2715 1684 / 1684 Balance 600 / 600 2715 / 2715 1684 / 1684 Laboratory Tests Past 24 Hrs 07/13/17 07/13/17 07/13/17 05:40 05:40 05:40 WBC 11.5 H RBC 3.27 L Hgb 9.7 L Hct 30.7 L MCV 93.9 MCH 29.7 MCHC 31.6 L RDW 16.2 H RDW Differential 53.1 H Plt Count 171 MPV 11.2 PT 31.5 H INR 3.0 Sodium 131 L Potassium 5.4 H Chloride 97 L Carbon Dioxide 27.0 Anion Gap 7 BUN 72 H Creatinine 2.45 H Estim Creat Clear Calc 28.10 Est GFR (MDRD) Af Amer 34 L Est GFR (MDRD) Non-Af 28 L BUN/Creatinine Ratio 29.4 H Glucose 134 H Calcium 8.6 Clinical Impression(s) from Imaging Studies Chest X-Ray 07/10/17 15:34 IMPRESSION: Findings suggesting a mild degree of CHF superimposed on chronic interstitial fibrosis. Electronically Signed: Lm Haddad MD at 15:54 EDT Tel [phone], Service support , Assessment/Plan Active and Suspected Problems (Last Reviewed 06/08/17 @ 13:42 by Odalys Espinosa NP-C) COPD with acute exacerbation (Acute) 1. Acute kidney injury with baseline creatinine 0.97 increased to 2.35 on July 12 then 2.45 today. No recent IV contrast exposure. Suspect due to hemodynamic changes from medications and A. fib with RVR. Lasix and Naprosyn discontinued. Patient received IV fluids overnight. Check spot urine sodium, creatinine for FENA. May need more fluids. Avoid nephrotoxins, NSAIDs. 2. Hyperkalemia potassium supplements discontinued. Follow low potassium diet. Kayexalate ?1 dose. 3. COPD exacerbation on doxycycline and prednisone. 4. Rheumatoid arthritis on Plaquenil and chronic steroids at home. 5. Hyponatremia sodium 131. Check urine sodium. May need free water restriction. 6. Atrial fibrillation with rapid ventricular response on Tambocor. Primary care management. 7. CAD currently asymptomatic.
[2017-07-13 15:58] LABS: Urine Sodium 29 mmol/L (Not Establ.)
--- NOTE | 2017-07-13 23:45 | CPS ---
Pt wore BIPAP 12/08 and 02/08 during May admission. Per pt, had a sleep study about a week ago and PAP therapy was applied. However, pt has not gotten results back yet. Pt requested to wear BIPAP again. Pt tolerated 12/07 the best.
[2017-07-14] VITALS (19 sets, daily range): BP systolic 108–130; BP diastolic 56–97; PULSE 59–139; RESP 12–30; TEMP 36.4–36.9; O2SAT 100
[2017-07-14] MEDS: Acetaminophen 325 MG Tablet 650 MG PO ×3 (01:20→21:56)
[2017-07-14] MEDS: Metoprolol Tartrate 5 MG/5 ML Vial IV ×2 (02:26→22:41)
[2017-07-14] MEDS: Ipratropium/Albuterol Sulfate 3 ML AMPUL.NEB INHALATION ×6 (03:21→23:15)
[2017-07-14 03:33] LABS: Anion Gap 9 (5-15); BUN 56 mg/dL (7-18); BUN/Creat Ratio 38.9 RATIO (10-20); Calcium,Total 8.5 mg/dL (8.5-10.1); Chloride 101 mmol/L (98-107); Creatinine, Serum 1.44 mg/dL (0.70-1.30); EST Glomerular Filtration Rate 52 mL/min (>60); Est Glom Filt Rate - Afr Amer 63 mL/min (>60); Estimated Creatinine Clearance 47.82 ml/min; Glucose 130 mg/dL (74-106); Potassium 5.4 mmol/L (3.5-5.1); Sodium Level 136 mmol/L (136-145)
[2017-07-14] MEDS: Flecainide 100 MG Tablet 50 MG PO ×2 (07:57→19:31)
[2017-07-14] MEDS: Doxycycline 100 MG CAPSULE PO ×2 (07:58→19:32)
[2017-07-14] MEDS: Verapamil SR 240 MG Tablet PO (07:58)
[2017-07-14] MEDS: Pantoprazole Sodium 40 MG Tablet PO (07:58)
[2017-07-14] MEDS: predniSONE 20 MG Tablet PO ×2 (07:58→16:53)
[2017-07-14] MEDS: Gabapentin 300 MG Capsule 600 MG PO ×2 (07:59→16:53)
[2017-07-14] MEDS: Hydroxychloroquine 200 MG Tablet PO ×2 (07:59→16:53)
--- NOTE | 2017-07-14 09:43 | ECHOD_ITS ---
Reason For Study: A. fib/flutter Procedure This was a 2D Doppler, Color Flow transthoracic echocardiogram. Exam performed portable in patient room. Left Ventricle Normal size and thickness. The estimated ejection fraction is 65 %. Septal motion consistent with IVCD. Unable to assess diastolic dysfunction due to arrhythmia. No regional wall motion abnormalities noted. Right Ventricle Normal size and thickness. Normal systolic function. Atria The left atrium is severely enlarged. Normal right atrium. Normal atrial septum. Mitral Valve Mild diffuse mitral valve thickening. Tricuspid Valve Normal tricuspid valve. Trivial tricuspid valve insufficiency. Right ventricular systolic pressure estimated to be 55 mmHg. Moderate pulmonary hypertension. Aortic Valve Trisinus/trileaflet aortic valve. Pulmonic Valve The pulmonic valve is not well visualized. Great Vessels Normal aortic root. Normal arch. The inferior vena cava is dilated. No collapse of the inferior vena cava. Pericardium/Pleural No pericardial effusion. MMode/2D Measurements & Calculations LVIDd: 3.5 cm IVSd: 0.96 cm Ao root diam: 3.3 cm LVIDs: 2.1 cm LVPWd: 1.1 cm LA dimension: 5.0 cm RVDd: 2.7 cm FS: 38.7 % LAV(MOD-bp): 68.3 ml LA A4 area: 22.9 cm2 RA A4 area: 14.6 cm2 LAV(MOD-bp) Indexed: 35.0 ml/m2 LAV(MOD-sp2): 78.0 ml LAV(MOD-sp4): 59.6 ml Doppler Measurements & Calculations MV E max francois: 148.6 cm/sec Ao V2 max: 139.4 cm/sec LV V1 max: 95.2 cm/sec Ao max P.8 mmHg LV V1 max P.6 mmHg PA V2 max: 85.4 cm/sec TR max francois: 304.2 cm/sec TR max P.1 mmHg Interpretation Summary The estimated ejection fraction is 65 %. Unable to assess diastolic dysfunction due to arrhythmia. The left atrium is severely enlarged. Trivial tricuspid valve insufficiency. Right ventricular systolic pressure estimated to be 55 mmHg. Moderate pulmonary hypertension. Pt appeast to be in atrial fib/flutter. There is no comparison study available. Ordering Physician: Stanford Johnston Referring Physician: Jessenia Rios Performed By: Chasity Syed RDCS
--- NOTE | 2017-07-14 09:47 | PCM.PN.HOSP ---
Patient Problems: Active and Suspected Problems (Last Reviewed 06/08/17 @ 13:42 by Odalys Espinosa NP-Arti) COPD with acute exacerbation (Acute) Subjective: Seen breathing is more labored compared to the day prior. His kidney function however did improve with IV fluid. Patient also reports gaining almost 130 pounds since admission; telemetry monitoring shows A. fib with RVR Objective: GENERAL: cooperative HEENT: Clear conjunctiva, NECK; supple, normal thyroid, no distended JVD. CHEST: Diminished to auscultation with bibasilar crackles HEART: Regular S1 S2, no audible murmurs ABDOMEN: soft, non-tender, normoactive bowel sounds, RECTAL: deferred EXTREMITIES: No edema, no clubbing, no cyanosis. TONG HOOKER: Awake, no lateralizing signs. SKIN: Areas of ecchymosis upper extremities Vitals/I&O's: Vital Signs Temp Pulse Resp BP Pulse Ox 98.1 F 120 H 16 108/77 100 07/14/17 08:00 07/14/17 08:00 07/14/17 08:00 07/14/17 08:00 07/14/17 08:00 Oxygen Flow Rate (L/min) 4 Oxygen Delivery Method Nasal Cannula Weight: 83.5 kg Body Mass Index (BMI) 27.0 Intake and Output for Last 24 Hours 07/12/17 07/13/17 07/14/17 23:59 23:59 23:59 Intake Total 2715 / 2715 2784 / 2784 500 / 500 Output Total 250 / 250 Balance 2715 / 2715 2784 / 2784 250 / 250 Laboratory Results 07/13/17 13:20: Urine Creatinine 93.30 07/13/17 13:20: Ur Random Sodium 29 07/14/17 03:12: Sodium 136, Potassium 5.4 H, Chloride 101, Carbon Dioxide 26.0, Anion Gap 9, BUN 56 H, Creatinine 1.44 H, Estim Creat Clear Calc 47.82, Est GFR (MDRD) Af Amer 63, Est GFR (MDRD) Non-Af 52 L, BUN/Creatinine Ratio 38.9 H, Glucose 130 H, Calcium 8.5 Current Medications Acetaminophen (Tylenol) 650 mg PO Q6H PRN PRN PRN Reason: Mild Pain (scale 0-3)/T>100.7 Last Admin: 07/14/17 09:38 Dose: 650 mg Albuterol Sulfate (Ventolin Aerosols) 2.5 mg INHALATION Q2H PRN PRN PRN Reason: SHORTNESS OF BREATH Albuterol/Ipratropium (Duoneb) 3 ml INHALATION Q4H.RT [facility] Last Admin: 07/14/17 06:57 Dose: 3 ml Cyclobenzaprine HCl (Flexeril) 10 mg PO TID PRN PRN PRN Reason: MUSCLE SPASMS Last Admin: 07/14/17 09:38 Dose: 10 mg Doxycycline Monohydrate (Doxycycline) 100 mg PO BID [facility] Last Admin: 07/14/17 07:58 Dose: 100 mg Ergocalciferol (Vitamin D) 50,000 unit PO [facility] Last Admin: 07/14/17 07:59 Dose: 50,000 unit Flecainide Acetate (Tambocor) 50 mg PO BID [facility] Last Admin: 07/14/17 07:57 Dose: 50 mg [facility] Last Admin: 07/14/17 07:59 Dose: 600 mg Hydroxychloroquine [facility] ([facility]il) [facility] Last Admin: 07/14/17 07:59 Dose: 200 mg Magnesium Hydroxide (Milk Of Magnesia) 30 ml PO DAILY PRN PRN PRN Reason: Constipation Nitroglycerin (Nitrostat) 0.4 mg SUBLINGUAL Q5M PRN PRN Reason: chest pain Ondansetron HCl (Zofran) 4 mg IV Q8H PRN PRN PRN Reason: Nausea Pantoprazole Sodium (Protonix) 40 mg PO DAILY [facility] Last Admin: 07/14/17 07:58 Dose: 40 mg [facility] () [facility] Last Admin: 07/14/17 07:58 Dose: 20 mg Sodium Chloride () 5 - 30 ml IV UD PRN PRN Reason: SALINE FLUSH Last Admin: 07/12/17 09:20 Dose: 10 ml Verapamil HCl (Calan Sr) 240 mg PO DAILY [facility] Last Admin: 07/14/17 07:58 Dose: 240 mg Medical Necessity - Tobacco Use Smoking Status: Former smoker - Quit 2008 Tobacco Use: Cigarettes Assessment/Plan Active and Suspected Problems (Last Reviewed 06/08/17 @ 13:42 by REBECA CevallosC) COPD with acute exacerbation (Acute) Patient is a 66-year-old gentleman with history of advanced rheumatoid arthritis with chronic lung disease and fibrosis presented with progressive shortness of breath assessment of COPD exacerbation made admitted to a regular nursing floor for further management 1. COPD with acute exacerbation: Patient has been admitted to regular nursing floor managed with bronchodilator treatment, systemic steroid, to biotics. Patient was placed on supplemental oxygen titrated to keep oxygen saturation greater than 90 2. Chronic lung disease with fibrosis secondary to rheumatoid arthritis as well as asbestosis 3. Paroxysmal A. fib patient is on flecainide as well as systemic anticoagulation with Coumadin INR was supratherapeutic on admission subsequently held with daily monitoring of INR. Cardiology consultation was obtained after patient went into A. fib with RVR and ordered a 2D echo 4. Rheumatoid arthritis advanced patient is on Plaquenil as well as prednisone 5. Coagulopathy secondary to Coumadin use : Resolved 6. DVT prophylaxis patient is on Coumadin no need for additional measures 7. Chronic hypoxic respiratory failure secondary to patient chronic lung disease patient on baseline home O2 8. Acute kidney injury secondary to use of NSAIDs Aldactone as well as Lasix the suspected offending medications discontinued patient started on IV fluids with monitoring of electrolyte consultation placed to Dr. Santiago with nephrology 9. Hyperkalemia secondary to use of potassium supplementation; discontinued 10. Physical debility requested except for PT OT CODE STATUS full code Code Visit Inpatient E&M: 38650 Subs Hosp L3
--- NOTE | 2017-07-14 09:58 | PN_ITS ---
Patient Problems: Active and Suspected Problems (Last Reviewed 06/08/17 @ 13:42 by Odalys Espinosa NP-Arti) COPD with acute exacerbation (Acute) Subjective: Seen breathing is more labored compared to the day prior. His kidney function however did improve with IV fluid. Patient also reports gaining almost 130 pounds since admission; telemetry monitoring shows A. fib with RVR Objective: GENERAL: cooperative HEENT: Clear conjunctiva, NECK; supple, normal thyroid, no distended JVD. CHEST: Diminished to auscultation with bibasilar crackles HEART: Regular S1 S2, no audible murmurs ABDOMEN: soft, non-tender, normoactive bowel sounds, RECTAL: deferred EXTREMITIES: No edema, no clubbing, no cyanosis. DADO OPERATOR: Awake, no lateralizing signs. SKIN: Areas of ecchymosis upper extremities Vitals/I&O's: Vital Signs Temp Pulse Resp BP Pulse Ox 98.1 F 120 H 16 108/77 100 07/14/17 08:00 07/14/17 08:00 07/14/17 08:00 07/14/17 08:00 07/14/17 08:00 Oxygen Flow Rate (L/min) 4 Oxygen Delivery Method Nasal Cannula Weight: 83.5 kg Body Mass Index (BMI) 27.0 Intake and Output for Last 24 Hours 07/12/17 07/13/17 07/14/17 23:59 23:59 23:59 Intake Total 2715 / 2715 2784 / 2784 500 / 500 Output Total 250 / 250 Balance 2715 / 2715 2784 / 2784 250 / 250 Laboratory Results 07/13/17 13:20: Urine Creatinine 93.30 07/13/17 13:20: Ur Random Sodium 29 07/14/17 03:12: Sodium 136, Potassium 5.4 H, Chloride 101, Carbon Dioxide 26.0, Anion Gap 9, BUN 56 H, Creatinine 1.44 H, Estim Creat Clear Calc 47.82, Est GFR (MDRD) Af Amer 63, Est GFR (MDRD) Non-Af 52 L, BUN/Creatinine Ratio 38.9 H, Glucose 130 H, Calcium 8.5 Current Medications Acetaminophen (Tylenol) 650 mg PO Q6H PRN PRN PRN Reason: Mild Pain (scale 0-3)/T>100.7 Last Admin: 07/14/17 09:38 Dose: 650 mg Albuterol Sulfate (Ventolin Aerosols) 2.5 mg INHALATION Q2H PRN PRN PRN Reason: SHORTNESS OF BREATH Albuterol/Ipratropium (Duoneb) 3 ml INHALATION Q4H.RT [facility] Last Admin: 07/14/17 06:57 Dose: 3 ml Cyclobenzaprine HCl (Flexeril) 10 mg PO TID PRN PRN PRN Reason: MUSCLE SPASMS Last Admin: 07/14/17 09:38 Dose: 10 mg Doxycycline Monohydrate (Doxycycline) 100 mg PO BID [facility] Last Admin: 07/14/17 07:58 Dose: 100 mg Ergocalciferol (Vitamin D) 50,000 unit PO [facility] Last Admin: 07/14/17 07:59 Dose: 50,000 unit Flecainide Acetate (Tambocor) 50 mg PO BID [facility] Last Admin: 07/14/17 07:57 Dose: 50 mg [facility]in) [facility] Last Admin: 07/14/17 07:59 Dose: 600 mg Hydroxychloroquine Sulfate ([facility]aquenil) [facility] Last Admin: 07/14/17 07:59 Dose: 200 mg Magnesium Hydroxide (Milk Of Magnesia) 30 ml PO DAILY PRN PRN PRN Reason: Constipation Nitroglycerin (Nitrostat) 0.4 mg SUBLINGUAL Q5M PRN PRN Reason: chest pain Ondansetron HCl (Zofran) 4 mg IV Q8H PRN PRN PRN Reason: Nausea Pantoprazole Sodium (Protonix) 40 mg PO DAILY [facility] Last Admin: 07/14/17 07:58 Dose: 40 mg [facility]one () [facility] Last Admin: 07/14/17 07:58 Dose: 20 mg Sodium Chloride () 5 - 30 ml IV UD PRN PRN Reason: SALINE FLUSH Last Admin: 07/12/17 09:20 Dose: 10 ml Verapamil HCl (Calan Sr) 240 mg PO DAILY [facility] Last Admin: 07/14/17 07:58 Dose: 240 mg Medical Necessity - Tobacco Use Smoking Status: Former smoker - Quit 2008 Tobacco Use: Cigarettes Assessment/Plan Active and Suspected Problems (Last Reviewed 06/08/17 @ 13:42 by REBECA CevallosC) COPD with acute exacerbation (Acute) Patient is a 66-year-old gentleman with history of advanced rheumatoid arthritis with chronic lung disease and fibrosis presented with progressive shortness of breath assessment of COPD exacerbation made admitted to a regular nursing floor for further management 1. COPD with acute exacerbation: Patient has been admitted to regular nursing floor managed with bronchodilator treatment, systemic steroid, to biotics. Patient was placed on supplemental oxygen titrated to keep oxygen saturation greater than 90 2. Chronic lung disease with fibrosis secondary to rheumatoid arthritis as well as asbestosis 3. Paroxysmal A. fib patient is on flecainide as well as systemic anticoagulation with Coumadin INR was supratherapeutic on admission subsequently held with daily monitoring of INR. Cardiology consultation was obtained after patient went into A. fib with RVR and ordered a 2D echo 4. Rheumatoid arthritis advanced patient is on Plaquenil as well as prednisone 5. Coagulopathy secondary to Coumadin use : Resolved 6. DVT prophylaxis patient is on Coumadin no need for additional measures 7. Chronic hypoxic respiratory failure secondary to patient chronic lung disease patient on baseline home O2 8. Acute kidney injury secondary to use of NSAIDs Aldactone as well as Lasix the suspected offending medications discontinued patient started on IV fluids with monitoring of electrolyte consultation placed to Dr. Santiago with nephrology 9. Hyperkalemia secondary to use of potassium supplementation; discontinued 10. Physical debility requested except for PT OT CODE STATUS full code Code Visit Inpatient E&M: 33838 Subs Hosp L3
--- NOTE | 2017-07-14 10:28 | PCM.CONS.GEN ---
Reason for Consult Date of Consultation: 07/14/17 Reason for Consultation: Dyspnea History of Present Illness: The patient is a 66-year-old male, with a history as outlined below, who initially presented to the emergency department on July 10 with progressive shortness of breath. The patient has a self-reported history of COPD of unknown severity, having last completed pulmonary function test in 2009 at [facility]. He also has a reported history of obstructive sleep apnea, but was never started on nocturnal PAP therapy. In addition to the aforementioned, she has underlying rheumatoid arthritis with questionable lung involvement, but has not been routinely followed by a final block press operator for a number of years. 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 He is currently on Plaquenil and prednisone for his underlying rheumatologic disease. Patient does have a history of fibrotic changes noted on chest imaging dating as far back as 2009. The patient was recently admitted to the hospital May 19- with acute respiratory failure secondary to presumptive COPD exacerbation in the setting of influenza B. The patient followed up with our nurse practitioner following that hospitalization. Pulmonary function testing was ordered. In addition, a repeat polysomnogram was ordered. It was recommended that the patient reestablish a relationship with a final block press operator. On presentation to the emergency department, the patient was noted to be afebrile and hemodynamically stable. He was tachypneic maintaining appropriate oxygen saturations on 4 L/min via nasal cannula. Laboratory evaluation revealed elevated white blood cell count to 12,000. INR was elevated at 3.7. Chemistry profile was largely unremarkable. Troponin and BNP were both negative. The patient's hospital course has been complicated by the development of acute kidney injury, for which nephrology was consulted. The patient has been treated for a presumptive COPD exacerbation yet again with bronchodilators, steroids and antibiotics. The patient did complete spirometry on June 08, 2017 through the [facility]. For reasons that are not clear, lung volumes and diffusing capacity were not obtained. Nevertheless, spirometry did indicate the presence of a severe obstructive ventilatory impairment. A reduced FVC was noted, which may be suggestive of an underlying restriction. However, lung volumes would need to be obtained for further clarification. The patient does report that he completed his polysomnogram 1 week ago. However, the results are not yet available. He was referred to Dr. Sanabria of rheumatology, but has yet to schedule an appointment. Past Medical History Past Medical History (Chronic Problems): Chronic Problems (Last Reviewed 06/08/17 @ 13:42 by JONNY Cevallos) Chronic obstructive pulmonary disease (Chronic) CAD (coronary artery disease) (Chronic) CHF (congestive heart failure) (Chronic) Borderline type 2 diabetes mellitus (Chronic) PAF (paroxysmal atrial fibrillation) (Chronic) Rheumatoid arthritis (Chronic) H/O asbestosis (Chronic) Allergies No Known Allergies Allergy (Verified 07/10/17 15:20) Home Medications: Ambulatory Orders Medication Instructions Recorded Ergocalciferol [Vitamin D] 50,000 unit PO FR 05/19/13 Hydroxychloroquine [Plaquenil] 200 mg PO BIDCM 05/19/13 Pantoprazole Sodium [Protonix] 40 mg PO DAILY 05/19/13 Potassium Chloride [K-Dur] 20 meq PO DAILY 05/19/13 Verapamil HCl [Verapamil ER] 240 mg PO DAILY 05/19/13 Warfarin [Coumadin] 4 mg PO [id number] 05/19/13 Acetaminophen [Acetaminophen ER] 650 mg PO Q6H PRN PRN 05/19/17 Albuterol IH (ProAir) [Proair Hfa] 2 puff INHALATION Q4H PRN PRN 05/19/17 Flecainide [Tambocor] 50 mg PO BID 05/19/17 Gabapentin [Neurontin] 600 mg PO BIDCM 05/19/17 Nitroglycerin [Nitrostat] 0.4 mg SUBLINGUAL PRN PRN 05/19/17 Spironolactone [Aldactone] 25 mg PO DAILY 05/19/17 Ipratropium/Albuterol Sulfate 3 ml INHALATION Q8H #30 ampul.neb 05/23/17 [Duoneb] Prednisone 5 mg PO BID 06/02/17 Cyclobenzaprine [Flexeril] 10 mg PO TID PRN PRN 07/10/17 Furosemide [Lasix] 40 mg PO DAILY 07/10/17 Warfarin [Coumadin ([facility])] 6 mg PO JORDAN 07/10/17 Surgical History: - - Notes calcium deposit removal otherwise no surgical history. Lives: Spouse/ Significant Other Smoking Status: Former smoker - Quit 2008 Tobacco Use: Cigarettes Alcohol: None Drugs: None - *Family History Maternal History Items: Cancer Paternal History Items: Diabetes, Pulmonary Disease Review of Systems Constitutional: Denies: Chills, Fever, Weight Change HEENT: Denies: Head Aches, Sinus Congestion, Sinus Drainage Cardiovascular: Denies: Chest Pain, Palpitations Respiratory: Reports: Shortness of Breath. Denies: Cough, Sputum production Gastrointestinal: Denies: Abdominal Pain, Nausea, Vomiting Genitourinary: Denies: Dysuria Musculoskeletal: Reports: Joint Pain, Joint stiffness Skin: Denies: Rash, Wounds Neurological: Denies: Numbness, Tingling, Focal weakness Psychiatric: Denies: Anxiety, Depression, Homicidal Ideations, Suicidal Ideations Hematologic/ Lymphatic: Reports: Anemia Patient Problems: Active and Suspected Problems (Last Reviewed 06/08/17 @ 13:42 by JONNY Cevallos) COPD with acute exacerbation (Acute) Objective: The patient's most recent lab work, culture data and imaging studies have all been personally reviewed. No infectious workup was ever ordered. - Physical Exam General: Alert, Cooperative, No apparent distress, - - Currently receiving aerosol treatment HEENT: Atraumatic, PERRLA, Normocephalic Oral: No Gingival or Mucosal Lesions/ Ulcerations Neck: Supple, No Nodes, Trachea Midline Lungs: Diminished, - - Bibasilar rales present, left greater than right. Cardiovascular: Normal S1, Normal S2, No murmurs, Irregular Rate, Tachycardic Abdomen: Bowel Sounds Present, Soft, Non Tender Extremities: No clubbing, No cyanosis, No edema Skin: - - Lower extremity venous stasis dermatitis with ecchymoses noted on upper extremities. Musculoskeletal: - - Stigmata of rheumatoid arthritis noted with joint deformities present Lymphatic: No Cervical, Supraclavicular, or Inguinal Adenopathy Neurological: Neuro grossly intact Psych/Mental Status: Normal Affect, Appropriate Vital Signs Temp Pulse Resp BP Pulse Ox 98.1 F 120 H 16 108/77 100 07/14/17 08:00 07/14/17 08:00 07/14/17 08:00 07/14/17 08:00 07/14/17 08:00 Oxygen Flow Rate (L/min) 4 Oxygen Delivery Method Nasal Cannula Weight: 184 lb 1.376 oz Body Mass Index (BMI) 27.0 Intake and Output for Last 24 Hours 07/12/17 07/13/17 07/14/17 23:59 23:59 23:59 Intake Total 2715 / 2715 2784 / 2784 500 / 500 Output Total 250 / 250 Balance 2715 / 2715 2784 / 2784 250 / 250 Laboratory Tests Past 24 Hrs 07/13/17 07/13/17 07/14/17 13:20 13:20 03:12 Sodium 136 Potassium 5.4 H Chloride 101 Carbon Dioxide 26.0 Anion Gap 9 BUN 56 H Creatinine 1.44 H Estim Creat Clear Calc 47.82 Est GFR (MDRD) Af Amer 63 Est GFR (MDRD) Non-Af 52 L BUN/Creatinine Ratio 38.9 H Glucose 130 H Calcium 8.5 Ur Random Sodium 29 Urine Creatinine 93.30 Clinical Impression(s) from Imaging Studies Chest X-Ray 07/10/17 15:34 IMPRESSION: Findings suggesting a mild degree of CHF superimposed on chronic interstitial fibrosis. Electronically Signed: Lm Haddad MD at 15:54 EDT Tel [phone], Service support , Assessment/Plan Active and Suspected Problems (Last Reviewed 06/08/17 @ 13:42 by Odalys Espinosa NP-C) COPD with acute exacerbation (Acute) RECOMMENDATIONS: 1. Continue bronchodilators and steroids. 2. Obtain high resolution CT chest 3. Echocardiogram is pending. 4. Wean supplemental oxygen to maintain saturations at or above 90%. 5. If the patient's cough becomes productive, send sputum for culture. 6. Perform walking oximetry study prior to consideration for discharge from the hospital. IMPRESSIONS: 1. Acute on chronic hypoxemic respiratory failure/severe COPD Unclear if the patient's presentation to the hospital truly represents a COPD exacerbation. There were no acute findings noted on plain film chest imaging upon presentation. It may be that he has underlying severe COPD that is not being adequately addressed in addition to potential rheumatoid associated lung disease and possible pulmonary hypertension contributing. Agree with continuing bronchodilators and steroids for now. Wean supplemental oxygen to maintain saturations at or above 90%. Obtain high resolution CT chest to evaluate for the presence of interstitial lung disease. The patient has yet to schedule a follow-up appointment with a final block press operator. The importance of doing so was stressed to him. Although he did recently complete pulmonary testing through [facility], only spirometry was completed. The patient is in need of obtaining lung volumes and diffusing capacity also. This can be accomplished on an outpatient basis. 2. Personal history of rheumatoid arthritis with suspected lung involvement Will obtain a CT chest for further evaluation of possible interstitial lung disease. It has been recommended now that the patient reestablish a relationship with a final block press operator. However, he has yet to do so. 3. Obstructive sleep apnea The patient claims that he recently completed a repeat polysomnogram through the [facility] 1 week ago. His report is not available to us today. A follow-up titration study will likely need to be completed on an outpatient basis. 4. Acute kidney injury/hyperkalemia [place] to be secondary to recent hemodynamic changes in the setting of atrial fibrillation with RVR, in addition to potential nephrotoxic medications. Nephrology is following. The patient's hyperkalemia is being medically managed. 5. Paroxysmal atrial fibrillation/diabetes/coronary artery disease Complicates care, management, recovery and prognosis. Management of atrial fibrillation and chronic anticoagulation per hospitalist. This note was generated with [employer] dictation software. It may contain incorrect words, spelling, and punctuation that were not noted in checking the note before signing. Code Visit Inpatient E&M: 08197 Init Hosp L3
--- NOTE | 2017-07-14 10:40 | CON.PCM_ITS ---
Reason for Consult Date of Consultation: 07/14/17 Reason for Consultation: Dyspnea History of Present Illness: The patient is a 66-year-old male, with a history as outlined below, who initially presented to the emergency department on July 10 with progressive shortness of breath. The patient has a self-reported history of COPD of unknown severity, having last completed pulmonary function test in 2009 at [facility]. He also has a reported history of obstructive sleep apnea, but was never started on nocturnal PAP therapy. In addition to the aforementioned, she has underlying rheumatoid arthritis with questionable lung involvement, but has not been routinely followed by a outreach clinician for a number of years. 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 He is currently on Plaquenil and prednisone for his underlying rheumatologic disease. Patient does have a history of fibrotic changes noted on chest imaging dating as far back as 2009. The patient was recently admitted to the hospital May 19- with acute respiratory failure secondary to presumptive COPD exacerbation in the setting of influenza B. The patient followed up with our nurse practitioner following that hospitalization. Pulmonary function testing was ordered. In addition, a repeat polysomnogram was ordered. It was recommended that the patient reestablish a relationship with a outreach clinician. On presentation to the emergency department, the patient was noted to be afebrile and hemodynamically stable. He was tachypneic maintaining appropriate oxygen saturations on 4 L/min via nasal cannula. Laboratory evaluation revealed elevated white blood cell count to 12,000. INR was elevated at 3.7. Chemistry profile was largely unremarkable. Troponin and BNP were both negative. The patient's hospital course has been complicated by the development of acute kidney injury, for which nephrology was consulted. The patient has been treated for a presumptive COPD exacerbation yet again with bronchodilators, steroids and antibiotics. The patient did complete spirometry on June 08, [address] [facility]. For reasons that are not clear, lung volumes and diffusing capacity were not obtained. Nevertheless, spirometry did indicate the presence of a severe obstructive ventilatory impairment. A reduced FVC was noted, which may be suggestive of an underlying restriction. However, lung volumes would need to be obtained for further clarification. The patient does report that he completed his polysomnogram 1 week ago. However, the results are not yet available. He was referred to Dr. Sanabria of rheumatology, but has yet to schedule an appointment. Past Medical History Past Medical History (Chronic Problems): Chronic Problems (Last Reviewed 06/08/17 @ 13:42 by JONNY Cevallos) Chronic obstructive pulmonary disease (Chronic) CAD (coronary artery disease) (Chronic) CHF (congestive heart failure) (Chronic) Borderline type 2 diabetes mellitus (Chronic) PAF (paroxysmal atrial fibrillation) (Chronic) Rheumatoid arthritis (Chronic) H/O asbestosis (Chronic) Allergies No Known Allergies Allergy (Verified 07/10/17 15:20) Home Medications: Ambulatory Orders Medication Instructions Recorded Ergocalciferol [Vitamin D] 50,000 unit PO FR 05/19/13 Hydroxychloroquine [Plaquenil] 200 mg PO BIDCM 05/19/13 Pantoprazole Sodium [Protonix] 40 mg PO DAILY 05/19/13 Potassium Chloride [K-Dur] 20 meq PO DAILY 05/19/13 Verapamil HCl [Verapamil ER] 240 mg PO DAILY 05/19/13 Warfarin [Coumadin] 4 mg PO SUMOTUWETHFRSA 05/19/13 Acetaminophen [Acetaminophen ER] 650 mg PO Q6H PRN PRN 05/19/17 Albuterol IH (ProAir) [Proair Hfa] 2 puff INHALATION Q4H PRN PRN 05/19/17 Flecainide [Tambocor] 50 mg PO BID 05/19/17 Gabapentin [Neurontin] 600 mg PO BIDCM 05/19/17 Nitroglycerin [Nitrostat] 0.4 mg SUBLINGUAL PRN PRN 05/19/17 Spironolactone [Aldactone] 25 mg PO DAILY 05/19/17 Ipratropium/Albuterol Sulfate 3 ml INHALATION Q8H #30 ampul.neb 05/23/17 [Duoneb] Prednisone 5 mg PO BID 06/02/17 Cyclobenzaprine [Flexeril] 10 mg PO TID PRN PRN 07/10/17 Furosemide [Lasix] 40 mg PO DAILY 07/10/17 Warfarin [Coumadin ([facility]KC)] 6 mg PO JORDAN 07/10/17 Surgical History: - - Notes calcium deposit removal otherwise no surgical history. Lives: Spouse/ Significant Other Smoking Status: Former smoker - Quit 2008 Tobacco Use: Cigarettes Alcohol: None Drugs: None - *Family History Maternal History Items: Cancer Paternal History Items: Diabetes, Pulmonary Disease Review of Systems Constitutional: Denies: Chills, Fever, Weight Change HEENT: Denies: Head Aches, Sinus Congestion, Sinus Drainage Cardiovascular: Denies: Chest Pain, Palpitations Respiratory: Reports: Shortness of Breath. Denies: Cough, Sputum production Gastrointestinal: Denies: Abdominal Pain, Nausea, Vomiting Genitourinary: Denies: Dysuria Musculoskeletal: Reports: Joint Pain, Joint stiffness Skin: Denies: Rash, Wounds Neurological: Denies: Numbness, Tingling, Focal weakness Psychiatric: Denies: Anxiety, Depression, Homicidal Ideations, Suicidal Ideations Hematologic/ Lymphatic: Reports: Anemia Patient Problems: Active and Suspected Problems (Last Reviewed 06/08/17 @ 13:42 by JONNY Cevallos) COPD with acute exacerbation (Acute) Objective: The patient's most recent lab work, culture data and imaging studies have all been personally reviewed. No infectious workup was ever ordered. - Physical Exam General: Alert, Cooperative, No apparent distress, - - Currently receiving aerosol treatment HEENT: Atraumatic, PERRLA, Normocephalic Oral: No Gingival or Mucosal Lesions/ Ulcerations Neck: Supple, No Nodes, Trachea Midline Lungs: Diminished, - - Bibasilar rales present, left greater than right. Cardiovascular: Normal S1, Normal S2, No murmurs, Irregular Rate, Tachycardic Abdomen: Bowel Sounds Present, Soft, Non Tender Extremities: No clubbing, No cyanosis, No edema Skin: - - Lower extremity venous stasis dermatitis with ecchymoses noted on upper extremities. Musculoskeletal: - - Stigmata of rheumatoid arthritis noted with joint deformities present Lymphatic: No Cervical, Supraclavicular, or Inguinal Adenopathy Neurological: Neuro grossly intact Psych/Mental Status: Normal Affect, Appropriate Vital Signs Temp Pulse Resp BP Pulse Ox 98.1 F 120 H 16 108/77 100 07/14/17 08:00 07/14/17 08:00 07/14/17 08:00 07/14/17 08:00 07/14/17 08:00 Oxygen Flow Rate (L/min) 4 Oxygen Delivery Method Nasal Cannula Weight: 184 lb 1.376 oz Body Mass Index (BMI) 27.0 Intake and Output for Last 24 Hours 07/12/17 07/13/17 07/14/17 23:59 23:59 23:59 Intake Total 2715 / 2715 2784 / 2784 500 / 500 Output Total 250 / 250 Balance 2715 / 2715 2784 / 2784 250 / 250 Laboratory Tests Past 24 Hrs 07/13/17 07/13/17 07/14/17 13:20 13:20 03:12 Sodium 136 Potassium 5.4 H Chloride 101 Carbon Dioxide 26.0 Anion Gap 9 BUN 56 H Creatinine 1.44 H Estim Creat Clear Calc 47.82 Est GFR (MDRD) Af Amer 63 Est GFR (MDRD) Non-Af 52 L BUN/Creatinine Ratio 38.9 H Glucose 130 H Calcium 8.5 Ur Random Sodium 29 Urine Creatinine 93.30 Clinical Impression(s) from Imaging Studies Chest X-Ray 07/10/17 15:34 IMPRESSION: Findings suggesting a mild degree of CHF superimposed on chronic interstitial fibrosis. Electronically Signed: Lm Haddad MD at 15:54 EDT Tel [phone], Service support , Assessment/Plan Active and Suspected Problems (Last Reviewed 06/08/17 @ 13:42 by Odalys Espinosa NP-C) COPD with acute exacerbation (Acute) RECOMMENDATIONS: 1. Continue bronchodilators and steroids. 2. Obtain high resolution CT chest 3. Echocardiogram is pending. 4. Wean supplemental oxygen to maintain saturations at or above 90%. 5. If the patient's cough becomes productive, send sputum for culture. 6. Perform walking oximetry study prior to consideration for discharge from the hospital. IMPRESSIONS: 1. Acute on chronic hypoxemic respiratory failure/severe COPD Unclear if the patient's presentation to the hospital truly represents a COPD exacerbation. There were no acute findings noted on plain film chest imaging upon presentation. It may be that he has underlying severe COPD that is not being adequately addressed in addition to potential rheumatoid associated lung disease and possible pulmonary hypertension contributing. Agree with continuing bronchodilators and steroids for now. Wean supplemental oxygen to maintain saturations at or above 90%. Obtain high resolution CT chest to evaluate for the presence of interstitial lung disease. The patient has yet to schedule a follow-up appointment with a outreach clinician. The importance of doing so was stressed to him. Although he did recently complete pulmonary testing through [facility], only spirometry was completed. The patient is in need of obtaining lung volumes and diffusing capacity also. This can be accomplished on an outpatient basis. 2. Personal history of rheumatoid arthritis with suspected lung involvement Will obtain a CT chest for further evaluation of possible interstitial lung disease. It has been recommended now that the patient reestablish a relationship with a outreach clinician. However, he has yet to do so. 3. Obstructive sleep apnea The patient claims that he recently completed a repeat polysomnogram through the [facility] 1 week ago. His report is not available to us today. A follow-up titration study will likely need to be completed on an outpatient basis. 4. Acute kidney injury/hyperkalemia [place] to be secondary to recent hemodynamic changes in the setting of atrial fibrillation with RVR, in addition to potential nephrotoxic medications. Nephrology is following. The patient's hyperkalemia is being medically managed. 5. Paroxysmal atrial fibrillation/diabetes/coronary artery disease Complicates care, management, recovery and prognosis. Management of atrial fibrillation and chronic anticoagulation per hospitalist. This note was generated with [employer] dictation software. It may contain incorrect words, spelling, and punctuation that were not noted in checking the note before signing. Code Visit Inpatient E&M: 11362 Init Hosp L3
[2017-07-14] MEDS: Furosemide 20 MG/2 ML VIAL IV (10:45)
[2017-07-14 10:52] LABS: International Normalized Ratio 1.7; Prothrombin Time (Protime)PT. 19.7 SECONDS (11.7-14.9)
--- NOTE | 2017-07-14 11:00 | CT_ITS ---
STUDY: CT CHEST WITHOUT CONTRAST REASON FOR EXAM: Male, 66 years old. Cough. Wheezing. COPD. Evaluate interstitial lung disease RADIATION DOSAGE (If Supplied By Facility): CTDIvol = ( 23.3 ) mGy, DLP = ( 875.85 ) mGycm TECHNIQUE: Transaxial imaging was performed without the administration of intravenous contrast material. Multiplanar coronal and sagittal images were reformatted. Individualized dose optimization techniques were used for this CT. COMPARISON: Chest x-ray July 10, 2017. FINDINGS: There are interstitial septal and groundglass opacities in the upper lungs. There are emphysematous blebs or cystic spaces in the mid chest on the right. There are regions of bronchiectasis in the lower more than the upper chest. There are scattered calcified pleural plaques. There are calcifications of the coronary arteries. There are pericardial calcifications. There is prominent mediastinal fat. There are mediastinal lymph nodes measuring up to 1.5 cm in the lower paratracheal region. Normal hilar regions. Normal unenhanced pulmonary arteries. There is atherosclerotic calcification of the aortic arch with tortuosity and elongation of the aortic arch and descending thoracic aorta. Degenerative change of the spine. Compression fractures of the T11 and L2 vertebra. Healed right rib fractures. There is a cirrhotic contour of the liver. CT/Chest without Contrast IMPRESSION: Interstitial infiltrates or fibrosis. Regions of bronchiectasis and cystic spaces. 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 Electronically Signed: Travis Steel MD at 12:27 EDT , Service support ,
[2017-07-14] MEDS: Sodium Polystyrene Sulfonate 15 GM/60 ML UDC 30 GM PO (13:45)
--- NOTE | 2017-07-14 14:35 | PCM.PN.REN ---
Patient Problems: Active and Suspected Problems (Last Reviewed 06/08/17 @ 13:42 by Odalys Espinosa NP-C) COPD with acute exacerbation (Acute) Subjective: still in afib, short of breath with edema. Received lasix x1. Potassium 5.4 given kayexalate. - Physical Exam General: Alert, Oriented x3, Cooperative, No apparent distress Neck: Supple Lungs: Rales Cardiovascular: Irregular Rate - afib, Tachycardic Abdomen: Bowel Sounds Present, Soft, Non Tender, Non-Distended, Obese Extremities: Edema Skin: - - ecchymosis Musculoskeletal: - - bony deformity from RA Neurological: Cranial nerves II-XII grossly intact Psych/Mental Status: Normal Affect, Appropriate, Alert and oriented to time, place, person, mood and affect Vital Signs Temp Pulse Resp BP Pulse Ox 98.1 F 113 H 20 H 108/77 100 07/14/17 08:00 07/14/17 10:38 07/14/17 10:38 07/14/17 08:00 07/14/17 08:00 Oxygen Flow Rate (L/min) 2 Oxygen Delivery Method Nasal Cannula Weight: 83.5 kg Body Mass Index (BMI) 27.0 Intake and Output for Last 24 Hours 07/12/17 07/13/17 07/14/17 23:59 23:59 23:59 Intake Total 2715 / 2715 2784 / 2784 500 / 500 Output Total 250 / 250 Balance 2715 / 2715 2784 / 2784 250 / 250 Laboratory Tests Past 24 Hrs 07/13/17 07/13/17 07/14/17 13:20 13:20 03:12 PT INR Sodium 136 Potassium 5.4 H Chloride 101 Carbon Dioxide 26.0 Anion Gap 9 BUN 56 H Creatinine 1.44 H Estim Creat Clear Calc 47.82 Est GFR (MDRD) Af Amer 63 Est GFR (MDRD) Non-Af 52 L BUN/Creatinine Ratio 38.9 H Glucose 130 H Calcium 8.5 Ur Random Sodium 29 Urine Creatinine 93.30 07/14/17 10:12 PT 19.7 H INR 1.7 Sodium Potassium Chloride Carbon Dioxide Anion Gap BUN Creatinine Estim Creat Clear Calc Est GFR (MDRD) Af Amer Est GFR (MDRD) Non-Af BUN/Creatinine Ratio Glucose Calcium Ur Random Sodium Urine Creatinine Clinical Impression(s) from Imaging Studies Chest CT 07/14/17 11:00 IMPRESSION: Interstitial infiltrates or fibrosis. Regions of bronchiectasis and cystic spaces. 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 Electronically Signed: Travis Steel MD at 12:27 EDT , Service support , Medical Necessity - Tobacco Use Smoking Status: Former smoker - Quit 2008 Tobacco Use: Cigarettes Assessment/Plan Active and Suspected Problems (Last Reviewed 06/08/17 @ 13:42 by Odalys Espinosa, SILVESTRE-C) COPD with acute exacerbation (Acute) 1. Acute kidney injury with baseline creatinine 0.97 increased to 2.45 on July 13. Creatinine improved to 1.44 today. Increased urine output with lasix x1 2. Hyperkalemia potassium supplements discontinued. Follow low potassium diet. Kayexalate ?1 dose. 3. COPD exacerbation with bronchiectasis, blebs, pleural plaques. Remains on chronic oxygen 4. Rheumatoid arthritis on Plaquenil and chronic steroids at home. 5. Hyponatremia stable 6. Atrial fibrillation with rapid ventricular response on Tambocor, verapamil. Remains in Afib 7. CAD currently asymptomatic. 8. Pulmonary hypertension contributing to leg edema.
[2017-07-14 16:16] LABS: Anion Gap 9 (5-15); BUN 52 mg/dL (7-18); BUN/Creat Ratio 38.5 RATIO (10-20); Calcium,Total 8.7 mg/dL (8.5-10.1); Chloride 101 mmol/L (98-107); Creatinine, Serum 1.35 mg/dL (0.70-1.30); EST Glomerular Filtration Rate 56 mL/min (>60); Est Glom Filt Rate - Afr Amer 68 mL/min (>60); Glucose 129 mg/dL (74-106); Potassium 5.2 mmol/L (3.5-5.1); Sodium Level 136 mmol/L (136-145)
[2017-07-14] MEDS: 0.9% NaCl Peripheral Flush Adult/Peds IV (22:42)
[2017-07-15] VITALS (48 sets, daily range): BP systolic 76–124; BP diastolic 54–99; PULSE 95–143; RESP 14–30; TEMP 36.2–36.7; O2SAT 93–100
--- NOTE | 2017-07-15 02:32 | CPS ---
pt unable to tolerate bipap
--- NOTE | 2017-07-15 02:32 | CPS ---
switched mask size from large to medium
[2017-07-15] MEDS: Metoprolol Tartrate 5 MG/5 ML Vial IV (03:55)
[2017-07-15] MEDS: 0.9% NaCl Peripheral Flush Adult/Peds IV ×4 (03:55→20:38)
--- NOTE | 2017-07-15 04:50 | NURSING ---
This nurse took over care of this pt. at this time. Received report from Anni MENDOZA MS3.
--- NOTE | 2017-07-15 04:57 | NURSING ---
Pt transferred to PCU at this time d/t A-fib RVR. Anni MENDOZA called report to Hawa MENDOZA. Patient states he will let his know of transfer.
--- NOTE | 2017-07-15 05:15 | NURSING ---
THE PATIENT CALLED HIS TO NOTIFY HER THAT HE IS IN ROOM 115 NOW.
[2017-07-15] MEDS: dilTIAZem 25 MG/5 ML Vial 20 MG IV BOLUS (05:45)
--- NOTE | 2017-07-15 06:04 | PCM.PROGNOTE ---
Patient Problems: Active and Suspected Problems (Last Reviewed 06/08/17 @ 13:42 by JONNY Cevallos) COPD with acute exacerbation (Acute) Subjective: The patient was seen and examined at the bedside this morning. Events from the last 24 hours have been reviewed. The patient is currently afebrile, hemodynamically stable and maintaining appropriate oxygen saturations on 2 L/min via nasal cannula. The patient was transferred from the medical surgical floor to the progressive care unit overnight due to atrial fibrillation with RVR, for which the patient was started on a Cardizem drip. The patient reports little overall change in his breathing quality this morning. Objective: The patient's most recent lab work, culture data and imaging studies have all been personally reviewed. The patient did complete spirometry on June 08, 2017 through the [facility]. For reasons that are not clear, lung volumes and diffusing capacity were not obtained. Nevertheless, spirometry did indicate the presence of a severe obstructive ventilatory impairment. A reduced FVC was noted, which may be suggestive of an underlying restriction. However, lung volumes would need to be obtained for further clarification. The patient does report that he completed his polysomnogram 1 week ago. However, the results are not yet available. Surface echocardiogram completed on July 14 revealed normal LV size and thickness with ejection fraction of 65%. Right ventricular systolic pressure was estimated to be [address] revealed emphysematous blebs/cystic spaces in the right hemithorax, scattered calcified pleural plaques, and interstitial infiltrate/fibrosis with associated bronchiectasis. - Physical Exam General: Alert, Cooperative, No apparent distress HEENT: Atraumatic, PERRLA, Normocephalic Oral: No Gingival or Mucosal Lesions/ Ulcerations Neck: Supple, No Nodes, Trachea Midline Lungs: Diminished, - - Bibasilar crackles present. Cardiovascular: Normal S1, Normal S2, No murmurs, Irregular Rate, Tachycardic Abdomen: Bowel Sounds Present, Soft, Non Tender Extremities: No clubbing, No cyanosis, No edema Skin: - - No significant change from previous. Musculoskeletal: - - Stigmata of rheumatoid arthritis noted. Lymphatic: No Cervical, Supraclavicular, or Inguinal Adenopathy Neurological: Neuro grossly intact Psych/Mental Status: Normal Affect, Appropriate Vital Signs Temp Pulse Resp BP Pulse Ox 97.6 F L 105 H 19 H 87/73 L 100 07/15/17 06:00 07/15/17 06:00 07/15/17 06:00 07/15/17 06:00 07/15/17 06:00 Oxygen Flow Rate (L/min) 2 Oxygen Delivery Method Nasal Cannula Weight: 183 lb 3.266 oz Body Mass Index (BMI) 27.0 Intake and Output for Last 24 Hours 07/13/17 07/14/17 07/15/17 23:59 23:59 23:59 Intake Total 2784 / 2784 500 / 500 Output Total 1900 / 1900 Balance 2784 / 2784 -1400 / -1400 Laboratory Tests Past 24 Hrs 07/14/17 07/14/17 10:12 14:55 PT 19.7 H INR 1.7 Sodium 136 Potassium 5.2 H Chloride 101 Carbon Dioxide 26.0 Anion Gap 9 BUN 52 H Creatinine 1.35 H Estim Creat Clear Calc 51.00 Est GFR (MDRD) Af Amer 68 Est GFR (MDRD) Non-Af 56 L BUN/Creatinine Ratio 38.5 H Glucose 129 H Calcium 8.7 Clinical Impression(s) from Imaging Studies Chest X-Ray 07/10/17 15:34 IMPRESSION: Findings suggesting a mild degree of CHF superimposed on chronic interstitial fibrosis. Electronically Signed: Lm Haddad MD at 15:54 EDT Tel [phone], Service support , Chest CT 07/14/17 11:00 IMPRESSION: Interstitial infiltrates or fibrosis. Regions of bronchiectasis and cystic spaces. 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 Electronically Signed: Travis Steel MD at 12:27 EDT , Service support , Medical Necessity - Tobacco Use Smoking Status: Former smoker - Quit 2009 Tobacco Use: Cigarettes Assessment/Plan Active and Suspected Problems (Last Reviewed 06/08/17 @ 13:42 by Odalys Espinosa NP-C) COPD with acute exacerbation (Acute) RECOMMENDATIONS: 1. Continue bronchodilators and steroids. 2. Rate/rhythm control strategy per hospitalist. 3. Wean supplemental oxygen to maintain saturations at or above 90%. 4. If the patient's cough becomes productive, send sputum for culture. 5. Perform walking oximetry study prior to consideration for discharge from the hospital. 6. The patient should follow-up in the pulmonary medicine clinic within 2 weeks of his discharge from the hospital. IMPRESSIONS: 1. Acute on chronic hypoxemic respiratory failure/severe COPD/pulmonary hypertension Unclear if the patient's presentation to the hospital truly represents a COPD exacerbation. There were no acute findings noted on plain film chest imaging upon presentation. It may be that he has underlying severe COPD that is not being adequately addressed in addition to potential rheumatoid associated lung disease and pulmonary hypertension contributing. Agree with continuing bronchodilators and steroids for now. Wean supplemental oxygen to maintain saturations at or above 90%. The patient has yet to schedule a follow-up appointment with a transportation engineer. The importance of doing so was stressed to him. Although he did recently complete pulmonary testing through [facility], only spirometry was completed. The patient is in need of obtaining lung volumes and diffusing capacity also. This can be accomplished on an outpatient basis. 2. Personal history of rheumatoid arthritis with suspected lung involvement CT chest revealed chronic interstitial changes with emphysematous/cystic remodeling noted in the right hemithorax along with lower lobe predominant bronchiectasis. It has been recommended now that the patient reestablish a relationship with a transportation engineer. However, he has yet to do so. 3. Obstructive sleep apnea The patient claims that he recently completed a repeat polysomnogram through the [facility] 1 week ago. His report is not available to us today. A follow-up titration study will likely need to be completed on an outpatient basis. 4. Acute kidney injury/hyperkalemia [place] to be secondary to recent hemodynamic changes in the setting of atrial fibrillation with RVR, in addition to potential nephrotoxic medications. Nephrology is following. 5. Paroxysmal atrial fibrillation/diabetes/coronary artery disease Complicates care, management, recovery and prognosis. Management of atrial fibrillation and chronic anticoagulation per hospitalist. This note was generated with [employer] dictation software. It may contain incorrect words, spelling, and punctuation that were not noted in checking the note before signing. Code Visit Inpatient E&M: 46141 Subs Hosp L2
--- NOTE | 2017-07-15 06:07 | PN_ITS ---
Patient Problems: Active and Suspected Problems (Last Reviewed 06/08/17 @ 13:42 by JONNY Cevallos) COPD with acute exacerbation (Acute) Subjective: The patient was seen and examined at the bedside this morning. Events from the last 24 hours have been reviewed. The patient is currently afebrile, hemodynamically stable and maintaining appropriate oxygen saturations on 2 L/ min via nasal cannula. The patient was transferred from the medical surgical floor to the progressive care unit overnight due to atrial fibrillation with RVR , for which the patient was started on a Cardizem drip. The patient reports little overall change in his breathing quality this morning. Objective: The patient's most recent lab work, culture data and imaging studies have all been personally reviewed. The patient did complete spirometry on June 08, 2017 through the [facility]. For reasons that are not clear, lung volumes and diffusing capacity were not obtained. Nevertheless, spirometry did indicate the presence of a severe obstructive ventilatory impairment. A reduced FVC was noted, which may be suggestive of an underlying restriction. However, lung volumes would need to be obtained for further clarification. The patient does report that he completed his polysomnogram 1 week ago. However, the results are not yet available. Surface echocardiogram completed on July 14 revealed normal LV size and thickness with ejection fraction of 65%. Right ventricular systolic pressure was estimated to be [address] revealed emphysematous blebs/cystic spaces in the right hemithorax, scattered calcified pleural plaques , and interstitial infiltrate/fibrosis with associated bronchiectasis. - Physical Exam General: Alert, Cooperative, No apparent distress HEENT: Atraumatic, PERRLA, Normocephalic Oral: No Gingival or Mucosal Lesions/ Ulcerations Neck: Supple, No Nodes, Trachea Midline Lungs: Diminished, - - Bibasilar crackles present. Cardiovascular: Normal S1, Normal S2, No murmurs, Irregular Rate, Tachycardic Abdomen: Bowel Sounds Present, Soft, Non Tender Extremities: No clubbing, No cyanosis, No edema Skin: - - No significant change from previous. Musculoskeletal: - - Stigmata of rheumatoid arthritis noted. Lymphatic: No Cervical, Supraclavicular, or Inguinal Adenopathy Neurological: Neuro grossly intact Psych/Mental Status: Normal Affect, Appropriate Vital Signs Temp Pulse Resp BP Pulse Ox 97.6 F L 105 H 19 H 87/73 L 100 07/15/17 06:00 07/15/17 06:00 07/15/17 06:00 07/15/17 06:00 07/15/17 06:00 Oxygen Flow Rate (L/min) 2 Oxygen Delivery Method Nasal Cannula Weight: 183 lb 3.266 oz Body Mass Index (BMI) 27.0 Intake and Output for Last 24 Hours 07/13/17 07/14/17 07/15/17 23:59 23:59 23:59 Intake Total 2784 / 2784 500 / 500 Output Total 1900 / 1900 Balance 2784 / 2784 -1400 / -1400 Laboratory Tests Past 24 Hrs 07/14/17 07/14/17 10:12 14:55 PT 19.7 H INR 1.7 Sodium 136 Potassium 5.2 H Chloride 101 Carbon Dioxide 26.0 Anion Gap 9 BUN 52 H Creatinine 1.35 H Estim Creat Clear Calc 51.00 Est GFR (MDRD) Af Amer 68 Est GFR (MDRD) Non-Af 56 L BUN/Creatinine Ratio 38.5 H Glucose 129 H Calcium 8.7 Clinical Impression(s) from Imaging Studies Chest X-Ray 07/10/17 15:34 IMPRESSION: Findings suggesting a mild degree of CHF superimposed on chronic interstitial fibrosis. Electronically Signed: Lm Haddad MD at 15:54 EDT Tel [phone], Service support , Chest CT 07/14/17 11:00 IMPRESSION: Interstitial infiltrates or fibrosis. Regions of bronchiectasis and cystic spaces. 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 Electronically Signed: Travis Steel MD at 12:27 EDT , Service support , Medical Necessity - Tobacco Use Smoking Status: Former smoker - Quit 2009 Tobacco Use: Cigarettes Assessment/Plan Active and Suspected Problems (Last Reviewed 06/08/17 @ 13:42 by Odalys Espinosa NP-C) COPD with acute exacerbation (Acute) RECOMMENDATIONS: 1. Continue bronchodilators and steroids. 2. Rate/rhythm control strategy per hospitalist. 3. Wean supplemental oxygen to maintain saturations at or above 90%. 4. If the patient's cough becomes productive, send sputum for culture. 5. Perform walking oximetry study prior to consideration for discharge from the hospital. 6. The patient should follow-up in the pulmonary medicine clinic within 2 weeks of his discharge from the hospital. IMPRESSIONS: 1. Acute on chronic hypoxemic respiratory failure/severe COPD/pulmonary hypertension Unclear if the patient's presentation to the hospital truly represents a COPD exacerbation. There were no acute findings noted on plain film chest imaging upon presentation. It may be that he has underlying severe COPD that is not being adequately addressed in addition to potential rheumatoid associated lung disease and pulmonary hypertension contributing. Agree with continuing bronchodilators and steroids for now. Wean supplemental oxygen to maintain saturations at or above 90%. The patient has yet to schedule a follow-up appointment with a healthcare representative. The importance of doing so was stressed to him. Although he did recently complete pulmonary testing through [facility], only spirometry was completed. The patient is in need of obtaining lung volumes and diffusing capacity also. This can be accomplished on an outpatient basis. 2. Personal history of rheumatoid arthritis with suspected lung involvement CT chest revealed chronic interstitial changes with emphysematous/cystic remodeling noted in the right hemithorax along with lower lobe predominant bronchiectasis. It has been recommended now that the patient reestablish a relationship with a healthcare representative. However, he has yet to do so. 3. Obstructive sleep apnea The patient claims that he recently completed a repeat polysomnogram through the [facility] 1 week ago. His report is not available to us today. A follow-up titration study will likely need to be completed on an outpatient basis. 4. Acute kidney injury/hyperkalemia [place] to be secondary to recent hemodynamic changes in the setting of atrial fibrillation with RVR, in addition to potential nephrotoxic medications. Nephrology is following. 5. Paroxysmal atrial fibrillation/diabetes/coronary artery disease Complicates care, management, recovery and prognosis. Management of atrial fibrillation and chronic anticoagulation per hospitalist. This note was generated with [employer] dictation software. It may contain incorrect words, spelling, and punctuation that were not noted in checking the note before signing. Code Visit Inpatient E&M: 24824 Subs Hosp L2
[2017-07-15 07:31] LABS: Hematocrit 31.3 % (40-54); Hemoglobin 9.6 g/dl (13.0-16.5); Mean Corp Hgb Conc 30.7 g/gl (32-36); Mean Corpuscular Hgb 28.7 pg (27.0-32.0); Mean Corpuscular Volume 93.4 fL (80-94); Platelet Count 161 K/mm3 (150-450); RBC Distribution Width CV 16.5 % (11.6-14.6); RBC Distribution Width SD 56.4 fl (35.1-43.9); Red Blood Count 3.35 M/mm3 (4.6-6.2)
[2017-07-15 07:38] LABS: Scan Indicated on CBC? Y/N NO
[2017-07-15 07:58] LABS: Anion Gap 3 (5-15); BUN 42 mg/dL (7-18); BUN/Creat Ratio 44.7 RATIO (10-20); Calcium,Total 8.7 mg/dL (8.5-10.1); Chloride 103 mmol/L (98-107); Creatinine, Serum 0.94 mg/dL (0.70-1.30); EST Glomerular Filtration Rate 85 mL/min (>60); Est Glom Filt Rate - Afr Amer 103 mL/min (>60); Estimated Creatinine Clearance 73.25 ml/min; Glucose 83 mg/dL (74-106); Magnesium 2.2 mg/dL (1.6-2.6); Potassium 4.3 mmol/L (3.5-5.1); Sodium Level 138 mmol/L (136-145)
[2017-07-15] MEDS: predniSONE 20 MG Tablet PO ×2 (08:20→16:19)
[2017-07-15] MEDS: Hydroxychloroquine 200 MG Tablet PO ×2 (08:20→16:19)
[2017-07-15] MEDS: Gabapentin 300 MG Capsule 600 MG PO ×2 (08:20→16:19)
[2017-07-15 08:23] LABS: International Normalized Ratio 1.4; Prothrombin Time (Protime)PT. 17.5 SECONDS (11.7-14.9)
--- NOTE | 2017-07-15 09:13 | PCM.PN.HOSP ---
Patient Problems: Active and Suspected Problems (Last Reviewed 06/08/17 @ 13:42 by Odalys Espinosa NP-Arti) COPD with acute exacerbation (Acute) Subjective: Patient was transferred from the regular nursing floor to PCU on account of his heart rate remaining persistently high between 120-130. Did receive Lopressor started on Cardizem drip. Patient seen heart rate still remains uncontrolled consultation was placed to cardiology his verapamil held this morning on account of patient being hypotensive Objective: GENERAL: cooperative HEENT: Clear conjunctiva, NECK; supple, normal thyroid, no distended JVD. CHEST: Diminished to auscultation with bibasilar crackles HEART: Irregular S1 S2, tachycardiac ABDOMEN: soft, non-tender, normoactive bowel sounds, RECTAL: deferred EXTREMITIES: No edema, no clubbing, no cyanosis. 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 SKIN: Areas of ecchymosis upper extremities Vitals/I&O's: Vital Signs Temp Pulse Resp BP Pulse Ox 97.6 F L 113 H 23 H 99/84 H 97 07/15/17 07:00 07/15/17 08:13 07/15/17 08:00 07/15/17 08:00 07/15/17 08:00 Oxygen Flow Rate (L/min) 1.5 Oxygen Delivery Method Nasal Cannula Weight: 83.1 kg Body Mass Index (BMI) 27.0 Intake and Output for Last 24 Hours 07/13/17 07/14/17 07/15/17 23:59 23:59 23:59 Intake Total 2784 / 2784 500 / 500 Output Total 1900 / 1900 Balance 2784 / 2784 -1400 / -1400 Laboratory Results 07/14/17 10:12: PT 19.7 H, INR 1.7 07/14/17 14:55: Sodium 136, Potassium 5.2 H, Chloride 101, Carbon Dioxide 26.0, Anion Gap 9, BUN 52 H, Creatinine 1.35 H, Estim Creat Clear Calc 51.00, Est GFR (MDRD) Af Amer 68, Est GFR (MDRD) Non-Af 56 L, BUN/Creatinine Ratio 38.5 H, Glucose 129 H, Calcium 8.7 07/15/17 07:10: WBC 10.0, RBC 3.35 L, Hgb 9.6 L, Hct 31.3 L, MCV 93.4, MCH 28.7, MCHC 30.7 L, RDW 16.5 H, RDW Differential 56.4 H, Plt Count 161, MPV 11.0 07/15/17 07:10: PT 17.5 H, INR 1.4 07/15/17 07:10: Sodium 138, Potassium 4.3, Chloride 103, Carbon Dioxide 32.0, Anion Gap 3 L, BUN 42 H, Creatinine 0.94, Estim Creat Clear Calc 73.25, Est GFR (MDRD) Af Amer 103, Est GFR (MDRD) Non-Af 85, BUN/Creatinine Ratio 44.7 H, Glucose 83, Calcium 8.7, Magnesium 2.2 Current Medications Acetaminophen (Tylenol) 650 mg PO Q6H PRN PRN PRN Reason: Mild Pain (scale 0-3)/T>100.7 Last Admin: 07/14/17 21:56 Dose: 650 mg Albuterol Sulfate (Ventolin Aerosols) 2.5 mg INHALATION Q2H PRN PRN PRN Reason: SHORTNESS OF BREATH Albuterol/Ipratropium (Duoneb) 3 ml INHALATION Q4H.RT [facility] Last Admin: 07/15/17 07:37 Dose: Not Given Cyclobenzaprine HCl (Flexeril) 10 mg PO TID PRN PRN PRN Reason: MUSCLE SPASMS Last Admin: 07/14/17 21:56 Dose: 10 mg Doxycycline Monohydrate (Doxycycline) 100 mg PO BID [facility] Last Admin: 07/14/17 19:32 Dose: 100 mg Ergocalciferol (Vitamin D) 50,000 unit PO FR [facility] Last Admin: 07/14/17 07:59 Dose: 50,000 unit Flecainide Acetate (Tambocor) 50 mg PO BID [facility] Last Admin: 07/14/17 19:31 Dose: 50 mg [facility] Last Admin: 07/15/17 08:20 Dose: 600 mg Hydroxychloroquine S[facility] ([facility]il) [facility] Last Admin: 07/15/17 08:20 Dose: 200 mg Diltiazem HCl 125 mg/ Dextrose 125 mls @ 5 mls/hr CONT INF .Q25H [facility] PRN Reason: 5 MG/HR Last Admin: 07/15/17 05:49 Dose: 5 mls/hr Magnesium Hydroxide (Milk Of Magnesia) 30 ml PO DAILY PRN PRN PRN Reason: Constipation Nitroglycerin (Nitrostat) 0.4 mg SUBLINGUAL Q5M PRN PRN Reason: chest pain Ondansetron HCl (Zofran) 4 mg IV Q8H PRN PRN PRN Reason: Nausea Pantoprazole Sodium (Protonix) 40 mg PO DAILY [facility] Last Admin: 07/14/17 07:58 Dose: 40 mg Prednisone () 20 mg PO BIDCM [facility] Last Admin: 07/15/17 08:20 Dose: 20 mg Senna/Docusate Sodium (Senokot-S, Alysia-Colace) 1 tablet PO DAILY [facility] Last Admin: 07/14/17 17:32 Dose: Not Given Sodium Chloride () 5 - 30 ml IV UD PRN PRN Reason: SALINE FLUSH Last Admin: 07/15/17 05:50 Dose: 10 ml Verapamil HCl (Calan Sr) 240 mg PO DAILY [facility] Last Admin: 07/14/17 07:58 Dose: 240 mg Medical Necessity - Tobacco Use Smoking Status: Former smoker - Quit 2008 Tobacco Use: Cigarettes Assessment/Plan Active and Suspected Problems (Last Reviewed 06/08/17 @ 13:42 by Odalys Espinosa NP-C) COPD with acute exacerbation (Acute) Patient is a 66-year-old gentleman with history of advanced rheumatoid arthritis with chronic lung disease and fibrosis presented with progressive shortness of breath assessment of COPD exacerbation made admitted to a regular nursing floor for further management 1. COPD with acute exacerbation: Patient has been admitted to regular nursing floor managed with bronchodilator treatment, systemic steroid, to biotics. Patient was placed on supplemental oxygen titrated to keep oxygen saturation greater than 90 2. Chronic lung disease with fibrosis secondary to rheumatoid arthritis as well as asbestosis 3. Paroxysmal A. fib with RVR patient is on flecainide as well as systemic anticoagulation with Coumadin INR was supratherapeutic on admission subsequently held with daily monitoring of INR. Cardiology consultation was obtained after patient went into A. fib with RVR and ordered a 2D echo; patient was transferred to PCU on 07/14/2017 due to persistent A. fib. Flecainide discontinued by cardiology amiodarone drip started after discontinuation of Cardizem drip 4. Rheumatoid arthritis advanced patient is on Plaquenil as well as prednisone 5. Coagulopathy secondary to Coumadin use : Resolved 6. DVT prophylaxis patient is on Coumadin no need for additional measures 7. Chronic hypoxic respiratory failure secondary to patient chronic lung disease patient on baseline home O2 8. Acute kidney injury secondary to use of NSAIDs Aldactone as well as Lasix the suspected offending medications discontinued patient started on IV fluids with monitoring of electrolyte consultation placed to Dr. Santiago with nephrology. Patient FEI resolved 9. Hyperkalemia secondary to use of potassium supplementation; discontinued 10. Physical debility requested except for PT OT 11. Pulmonary hypertension with RVSP of 55 mmHg CODE STATUS full code ECHO Interpretation Summary The estimated ejection fraction is 65 %. Unable to assess diastolic dysfunction due to arrhythmia. The left atrium is severely enlarged. Trivial tricuspid valve insufficiency. Right ventricular systolic pressure estimated to be 55 mmHg. Moderate pulmonary hypertension. Pt appears to be in atrial fib/flutter. There is no comparison study available. Clinical Impression(s) from Imaging Studies Chest X-Ray 07/10/17 15:34 IMPRESSION: Findings suggesting a mild degree of CHF superimposed on chronic interstitial fibrosis. Electronically Signed: Lm Haddad MD at 15:54 EDT Tel [phone], Service support , Chest CT 07/14/17 11:00 IMPRESSION: Interstitial infiltrates or fibrosis. Regions of bronchiectasis and cystic spaces. 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 Electronically Signed: Travis Steel MD at 12:27 EDT , Service support , Code Visit Inpatient E&M: 98724 Subs Hosp L3
[2017-07-15] MEDS: Pantoprazole Sodium 40 MG Tablet PO (09:15)
[2017-07-15] MEDS: Doxycycline 100 MG CAPSULE PO ×2 (09:15→21:02)
--- NOTE | 2017-07-15 09:22 | PN_ITS ---
Patient Problems: Active and Suspected Problems (Last Reviewed 06/08/17 @ 13:42 by Odalys Espinosa NP-Arti) COPD with acute exacerbation (Acute) Subjective: Patient was transferred from the regular nursing floor to PCU on account of his heart rate remaining persistently high between 120-130. Did receive Lopressor started on Cardizem drip. Patient seen heart rate still remains uncontrolled consultation was placed to cardiology his verapamil held this morning on account of patient being hypotensive Objective: GENERAL: cooperative HEENT: Clear conjunctiva, NECK; supple, normal thyroid, no distended JVD. CHEST: Diminished to auscultation with bibasilar crackles HEART: Irregular S1 S2, tachycardiac ABDOMEN: soft, non-tender, normoactive bowel sounds, RECTAL: deferred EXTREMITIES: No edema, no clubbing, no cyanosis. 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 SKIN: Areas of ecchymosis upper extremities Vitals/I&O's: Vital Signs Temp Pulse Resp BP Pulse Ox 97.6 F L 113 H 23 H 99/84 H 97 07/15/17 07:00 07/15/17 08:13 07/15/17 08:00 07/15/17 08:00 07/15/17 08:00 Oxygen Flow Rate (L/min) 1.5 Oxygen Delivery Method Nasal Cannula Weight: 83.1 kg Body Mass Index (BMI) 27.0 Intake and Output for Last 24 Hours 07/13/17 07/14/17 07/15/17 23:59 23:59 23:59 Intake Total 2784 / 2784 500 / 500 Output Total 1900 / 1900 Balance 2784 / 2784 -1400 / -1400 Laboratory Results 07/14/17 10:12: PT 19.7 H, INR 1.7 07/14/17 14:55: Sodium 136, Potassium 5.2 H, Chloride 101, Carbon Dioxide 26.0, Anion Gap 9, BUN 52 H, Creatinine 1.35 H, Estim Creat Clear Calc 51.00, Est GFR (MDRD) Af Amer 68, Est GFR (MDRD) Non-Af 56 L, BUN/Creatinine Ratio 38.5 H, Glucose 129 H, Calcium 8.7 07/15/17 07:10: WBC 10.0, RBC 3.35 L, Hgb 9.6 L, Hct 31.3 L, MCV 93.4, MCH 28.7 , MCHC 30.7 L, RDW 16.5 H, RDW Differential 56.4 H, Plt Count 161, MPV 11.0 07/15/17 07:10: PT 17.5 H, INR 1.4 07/15/17 07:10: Sodium 138, Potassium 4.3, Chloride 103, Carbon Dioxide 32.0, Anion Gap 3 L, BUN 42 H, Creatinine 0.94, Estim Creat Clear Calc 73.25, Est GFR (MDRD) Af Amer 103, Est GFR (MDRD) Non-Af 85, BUN/Creatinine Ratio 44.7 H, Glucose 83, Calcium 8.7, Magnesium 2.2 Current Medications Acetaminophen (Tylenol) 650 mg PO Q6H PRN PRN PRN Reason: Mild Pain (scale 0-3)/T>100.7 Last Admin: 07/14/17 21:56 Dose: 650 mg Albuterol Sulfate (Ventolin Aerosols) 2.5 mg INHALATION Q2H PRN PRN PRN Reason: SHORTNESS OF BREATH Albuterol/Ipratropium (Duoneb) 3 ml INHALATION Q4H.RT [facility] Last Admin: 07/15/17 07:37 Dose: Not Given Cyclobenzaprine HCl (Flexeril) 10 mg PO TID PRN PRN PRN Reason: MUSCLE SPASMS Last Admin: 07/14/17 21:56 Dose: 10 mg Doxycycline Monohydrate (Doxycycline) 100 mg PO BID [facility] Last Admin: 07/14/17 19:32 Dose: 100 mg Ergocalciferol (Vitamin D) 50,000 unit PO FR [facility] Last Admin: 07/14/17 07:59 Dose: 50,000 unit Flecainide Acetate (Tambocor) 50 mg PO BID [facility] Last Admin: 07/14/17 19:31 Dose: 50 mg Gab[facility]in) [facility] Last Admin: 07/15/17 08:20 Dose: 600 mg Hydroxychloroquine Sulfate (Plaquenil) [facility] Last Admin: 07/15/17 08:20 Dose: 200 mg Diltiazem HCl 125 mg/ Dextrose 125 mls @ 5 mls/hr CONT INF .Q25H [facility] PRN Reason: 5 MG/HR Last Admin: 07/15/17 05:49 Dose: 5 mls/hr Magnesium Hydroxide (Milk Of Magnesia) 30 ml PO DAILY PRN PRN PRN Reason: Constipation Nitroglycerin (Nitrostat) 0.4 mg SUBLINGUAL Q5M PRN PRN Reason: chest pain Ondansetron HCl (Zofran) 4 mg IV Q8H PRN PRN PRN Reason: Nausea Pantoprazole Sodium (Protonix) 40 mg PO DAILY [facility] Last Admin: 07/14/17 07:58 Dose: 40 mg Prednisone () 20 mg PO BIDCM [facility] Last Admin: 07/15/17 08:20 Dose: 20 mg Senna/Docusate Sodium (Senokot-S, Alysia-Colace) 1 tablet PO DAILY [facility] Last Admin: 07/14/17 17:32 Dose: Not Given Sodium Chloride () 5 - 30 ml IV UD PRN PRN Reason: SALINE FLUSH Last Admin: 07/15/17 05:50 Dose: 10 ml Verapamil HCl (Calan Sr) 240 mg PO DAILY [facility] Last Admin: 07/14/17 07:58 Dose: 240 mg Medical Necessity - Tobacco Use Smoking Status: Former smoker - Quit 2008 Tobacco Use: Cigarettes Assessment/Plan Active and Suspected Problems (Last Reviewed 06/08/17 @ 13:42 by Odalys Espinosa NP-C) COPD with acute exacerbation (Acute) Patient is a 66-year-old gentleman with history of advanced rheumatoid arthritis with chronic lung disease and fibrosis presented with progressive shortness of breath assessment of COPD exacerbation made admitted to a regular nursing floor for further management 1. COPD with acute exacerbation: Patient has been admitted to regular nursing floor managed with bronchodilator treatment, systemic steroid, to biotics. Patient was placed on supplemental oxygen titrated to keep oxygen saturation greater than 90 2. Chronic lung disease with fibrosis secondary to rheumatoid arthritis as well as asbestosis 3. Paroxysmal A. fib with RVR patient is on flecainide as well as systemic anticoagulation with Coumadin INR was supratherapeutic on admission subsequently held with daily monitoring of INR. Cardiology consultation was obtained after patient went into A. fib with RVR and ordered a 2D echo; patient was transferred to PCU on 07/14/2017 due to persistent A. fib. Flecainide discontinued by cardiology amiodarone drip started after discontinuation of Cardizem drip 4. Rheumatoid arthritis advanced patient is on Plaquenil as well as prednisone 5. Coagulopathy secondary to Coumadin use : Resolved 6. DVT prophylaxis patient is on Coumadin no need for additional measures 7. Chronic hypoxic respiratory failure secondary to patient chronic lung disease patient on baseline home O2 8. Acute kidney injury secondary to use of NSAIDs Aldactone as well as Lasix the suspected offending medications discontinued patient started on IV fluids with monitoring of electrolyte consultation placed to Dr. Santiago with nephrology. Patient FEI resolved 9. Hyperkalemia secondary to use of potassium supplementation; discontinued 10. Physical debility requested except for PT OT 11. Pulmonary hypertension with RVSP of 55 mmHg CODE STATUS full code ECHO Interpretation Summary The estimated ejection fraction is 65 %. Unable to assess diastolic dysfunction due to arrhythmia. The left atrium is severely enlarged. Trivial tricuspid valve insufficiency. Right ventricular systolic pressure estimated to be 55 mmHg. Moderate pulmonary hypertension. Pt appears to be in atrial fib/flutter. There is no comparison study available. Clinical Impression(s) from Imaging Studies Chest X-Ray 07/10/17 15:34 IMPRESSION: Findings suggesting a mild degree of CHF superimposed on chronic interstitial fibrosis. Electronically Signed: Lm Haddad MD at 15:54 EDT Tel [phone], Service support , Chest CT 07/14/17 11:00 IMPRESSION: Interstitial infiltrates or fibrosis. Regions of bronchiectasis and cystic spaces. 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 Electronically Signed: Travis Steel MD at 12:27 EDT , Service support , Code Visit Inpatient E&M: 72409 Subs Hosp L3
--- NOTE | 2017-07-15 09:31 | CASEMGMT ---
Green sheet on chart for pt to go home with resumption of HHC. Lori MENDOZA CM
--- NOTE | 2017-07-15 11:37 | CON.PCM_ITS ---
Problem List (1) PAF (paroxysmal atrial fibrillation) Status: Chronic Reason for Consult Date of Consultation: 07/15/17 History of Present Illness: The patient is a 66 year old M with past medical history significant rheumatoid arthritis, congestive heart failure, diastolic dysfunction, asbestosis and COPD. The patient was admitted to the hospital with progressive shortness of breath and was admitted as COPD exacerbation. Denies any fevers or chills. He was noted to be in atrial fibrillation. He remains in atrial fibrillation with uncontrolled ventricular response. We have therefore been asked for help with management. Patient has previously been on flecainide and verapamil for his atrial fibrillation at home. He has also been on Coumadin. Denies any chest pains. Positive shortness of breath at rest. Positive shortness of breath with exertion. No history of CVA or TIA. Denies any bleeding disorders. Easy bruisability however. [] Past Medical History Allergies/Adverse Reactions: Allergies No Known Allergies Allergy (Verified 07/10/17 15:20) Home Medications: Ambulatory Orders Medication Instructions Recorded Ergocalciferol [Vitamin D] 50,000 unit PO FR 05/19/13 Hydroxychloroquine [Plaquenil] 200 mg PO BIDCM 05/19/13 Pantoprazole Sodium [Protonix] 40 mg PO DAILY 05/19/13 Potassium Chloride [K-Dur] 20 meq PO DAILY 05/19/13 Verapamil HCl [Verapamil ER] 240 mg PO DAILY 05/19/13 Warfarin [Coumadin] 4 mg PO [id number] 05/19/13 Acetaminophen [Acetaminophen ER] 650 mg PO Q6H PRN PRN 05/19/17 Albuterol IH (ProAir) [Proair Hfa] 2 puff INHALATION Q4H PRN PRN 05/19/17 Flecainide [Tambocor] 50 mg PO BID 05/19/17 Gabapentin [Neurontin] 600 mg PO BIDCM 05/19/17 Nitroglycerin [Nitrostat] 0.4 mg SUBLINGUAL PRN PRN 05/19/17 Spironolactone [Aldactone] 25 mg PO DAILY 05/19/17 Ipratropium/Albuterol Sulfate 3 ml INHALATION Q8H #30 ampul.neb 05/23/17 [Duoneb] Prednisone 5 mg PO BID 06/02/17 Cyclobenzaprine [Flexeril] 10 mg PO TID PRN PRN 07/10/17 Furosemide [Lasix] 40 mg PO DAILY 07/10/17 Warfarin [Coumadin ([facility])] 6 mg PO JORDAN 07/10/17 Past Medical History (Chronic Problems): Chronic Problems (Last Reviewed 06/08/17 @ 13:42 by JONNY Cevallos) Chronic obstructive pulmonary disease (Chronic) CAD (coronary artery disease) (Chronic) CHF (congestive heart failure) (Chronic) Borderline type 2 diabetes mellitus (Chronic) PAF (paroxysmal atrial fibrillation) (Chronic) Rheumatoid arthritis (Chronic) H/O asbestosis (Chronic) Surgical History: - - Notes calcium deposit removal otherwise no surgical history. - *Family History Maternal Family History: Family History (Last Reviewed 06/08/17 @ 13:42 by JONNY Cevallos) Father COPD (chronic obstructive pulmonary disease) Diabetes Mother Leukemia Heart disease History Items: Cancer Paternal Family History: Family History (Last Reviewed 06/08/17 @ 13:42 by JONNY Cevallos) Father COPD (chronic obstructive pulmonary disease) Diabetes Mother Leukemia Heart disease History Items: Diabetes, Pulmonary Disease Lives: Spouse/ Significant Other Smoking Status: Former smoker - Quit 2009 Tobacco Use: Cigarettes Alcohol: None Drugs: None Review of Systems - Review of Systems General: Denies: Fever, Chills, Weight Loss Cardiovascular: Reports: Peripheral Edema - Chronic lower extremity edema. Denies: Chest Pressure, Chest Tightness, Palpitations Respiratory: Reports: Cough. Denies: Sputum Production Gastrointestinal: Denies: Abdominal Discomfort, Jaundice, Hematemesis, Melena Muscoloskeletal: Reports: - - History of deformitive of rheumatoid arthritis Neurological: Denies: History of TIA, History of CVA Psychiatric: Denies: Manic Endocrine: Denies: Heat Intolerance, Cold Intolerance Hematologic/ Lymphatic: Reports: Easy Brusing Subjectve: Comfortable. Sitting up in the chair. No apparent distress Objective: Vital Signs Temp Pulse Resp BP Pulse Ox 97.6 F L 101 H 24 H 93/78 100 07/15/17 07:00 07/15/17 11:04 07/15/17 11:00 07/15/17 11:00 07/15/17 11:00 Oxygen Flow Rate (L/min) 1.5 Oxygen Delivery Method Nasal Cannula Weight: 83.1 kg Body Mass Index (BMI) 27.0 Intake and Output for Last 24 Hours 07/13/17 07/14/17 07/15/17 23:59 23:59 23:59 Intake Total 2784 / 2784 500 / 500 Output Total 1900 / 1900 Balance 2784 / 2784 -1400 / -1400 General: Awake, Alert, Oriented x 3, No Acute Distress HEENT: Atraumatic, Normocephalic Oral: Moist Mucosa Neck: Supple, No JVD Lungs: - - Scattered bilateral dry crypts Cardiovascular: Irregular Rhythm, Normal S1, Normal S2, No Murmurs, No Rubs Vascular: No Carotid Bruits Abdomen: Bowel Sounds Present, Soft Extremities: Bilateral Edema +1 Neurological: - - Alert oriented ?3 Psych/Mental Status: Appropriate 07/14/17 14:55: Sodium 136, Potassium 5.2 H, Chloride 101, Carbon Dioxide 26.0, Anion Gap 9, BUN 52 H, Creatinine 1.35 H, Est GFR (MDRD) Af Amer 68, Est GFR ( MDRD) Non-Af 56 L, BUN/Creatinine Ratio 38.5 H, Glucose 129 H, Calcium 8.7 07/15/17 07:10: WBC 10.0, RBC 3.35 L, Hgb 9.6 L, Hct 31.3 L, MCV 93.4, MCH 28.7 , MCHC 30.7 L, RDW 16.5 H, RDW Differential 56.4 H, Plt Count 161, MPV 11.0 07/15/17 07:10: PT 17.5 H, INR 1.4 07/15/17 07:10: Sodium 138, Potassium 4.3, Chloride 103, Carbon Dioxide 32.0, Anion Gap 3 L, BUN 42 H, Creatinine 0.94, Est GFR (MDRD) Af Amer 103, Est GFR ( MDRD) Non-Af 85, BUN/Creatinine Ratio 44.7 H, Glucose 83, Calcium 8.7, Magnesium 2.2 Rhythm: Atrial fibrillation with rapid ventricular response EKG: Underlying rhythm is atrial fibrillation. Poor R-wave progression across anterior precordial leads ECHO: Ejection fraction 65%. Severely dilated left atrium. Moderate to severe pulmonary hypertension Chest CT Scan: Emphysematous changes noted bilaterally. Possibility of asbestosis related disease. Coronary calcifications noted. Interstitial fibrosis Assessment/Plan 1. Atrial fibrillation. And has past history of paroxysmal atrial fibrillation. He was on flecainide for rhythm control. He has a severely dilated left atrium and I doubt that any rhythm control strategy would be successful. Would therefore stop the flecainide. Started on amiodarone for rate control. Continue to monitor. As the blood pressure improves, we will introduce oral diltiazem and possibly low-dose beta-marilu. Resume patient's warfarin. Pharmacy to dose 2. Coronary calcifications noted on CT chest. Patient without any angina 3. COPD exacerbation. Possible asbestos-related disease on CT scan. Interstitial fibrosis. Manage as per internal medicine. Consider pulmonology consult 4. History of severe rheumatoid arthritis 5. Cirrhotic appearance of liver noted on CT scan. Manage as per internal medicine 6. Borderline blood pressure. Given a fluid bolus. Patient asymptomatic. Monitor
[2017-07-15] MEDS: Digoxin 250 MCG/ML Ampul 500 MCG IV (14:34)
[2017-07-15] MEDS: Ipratropium/Albuterol Sulfate 3 ML AMPUL.NEB INHALATION ×3 (16:00→23:00)
[2017-07-15] MEDS: Digoxin 250 MCG/ML Ampul IV (20:37)
--- NOTE | 2017-07-15 23:56 | CPS ---
pt refused BIPAP
[2017-07-16] VITALS (32 sets, daily range): BP systolic 77–120; BP diastolic 58–95; PULSE 74–125; RESP 11–31; TEMP 36.2–36.8; O2SAT 80–100
[2017-07-16 06:20] LABS: Hematocrit 30.5 % (40-54); Hemoglobin 9.2 g/dl (13.0-16.5); Mean Corp Hgb Conc 30.2 g/gl (32-36); Mean Corpuscular Hgb 28.6 pg (27.0-32.0); Mean Corpuscular Volume 94.7 fL (80-94); Mean Platelet Vol. 10.7 fl (6.2-12.0); Platelet Count 144 K/mm3 (150-450); RBC Distribution Width CV 16.7 % (11.6-14.6); Red Blood Count 3.22 M/mm3 (4.6-6.2); White Blood Count 8.4 K/mm3 (4.4-11.0)
[2017-07-16 06:28] LABS: Scan Indicated on CBC? Y/N NO
[2017-07-16 06:30] LABS: International Normalized Ratio 1.3; Prothrombin Time (Protime)PT. 16.3 SECONDS (11.7-14.9)
[2017-07-16 06:37] LABS: Anion Gap 5 (5-15); BUN 34 mg/dL (7-18); Calcium,Total 8.4 mg/dL (8.5-10.1); Chloride 104 mmol/L (98-107); Creatinine, Serum 0.74 mg/dL (0.70-1.30); EST Glomerular Filtration Rate 113 mL/min (>60); Est Glom Filt Rate - Afr Amer 136 mL/min (>60); Estimated Creatinine Clearance 93.05 ml/min; Glucose 119 mg/dL (74-106); Potassium 4.6 mmol/L (3.5-5.1); Sodium Level 141 mmol/L (136-145)
--- NOTE | 2017-07-16 06:49 | PN_ITS ---
Patient Problems: Active and Suspected Problems (Last Reviewed 06/08/17 @ 13:42 by JONNY Cevallos) COPD with acute exacerbation (Acute) Subjective: The patient was seen and examined at the bedside this morning. Events from the last 24 hours have been reviewed. The patient is currently afebrile, hemodynamically stable and maintaining appropriate oxygen saturations on 1 L/ min via nasal cannula. Patient refused nocturnal BiPAP therapy. Breathing quality is otherwise unchanged. Objective: The patient's most recent lab work, culture data and imaging studies have all been personally reviewed. The patient did complete spirometry on June 08, 2017 through the [facility] [place]. For reasons that are not clear, lung volumes and diffusing capacity were not obtained. Nevertheless, spirometry did indicate the presence of a severe obstructive ventilatory impairment. A reduced FVC was noted, which may be suggestive of an underlying restriction. However, lung volumes would need to be obtained for further clarification. The patient does report that he completed his polysomnogram 1 week ago. However, the results are not yet available. Surface echocardiogram completed on July 14 revealed normal LV size and thickness with ejection fraction of 65%. Right ventricular systolic pressure was estimated to be [address] revealed emphysematous blebs/cystic spaces in the right hemithorax, scattered calcified pleural plaques , and interstitial infiltrate/fibrosis with associated bronchiectasis. - Physical Exam General: Alert, Cooperative, No apparent distress HEENT: Atraumatic, PERRLA, Normocephalic Oral: No Gingival or Mucosal Lesions/ Ulcerations Neck: Supple, No Nodes, Trachea Midline Lungs: Diminished, - - Bibasilar crackles, left greater than right Cardiovascular: Normal S1, Normal S2, No murmurs, Irregular Rate, Tachycardic Abdomen: Bowel Sounds Present, Soft, Non Tender Extremities: No clubbing, No cyanosis, No edema Skin: - - No significant change from previous Musculoskeletal: - - Stigmata of rheumatoid arthritis present Lymphatic: No Cervical, Supraclavicular, or Inguinal Adenopathy Neurological: Neuro grossly intact Psych/Mental Status: Alert and oriented to time, place, person, mood and affect Vital Signs Temp Pulse Resp BP Pulse Ox 97.2 F L 99 13 99/81 H 100 07/16/17 05:00 07/16/17 06:00 07/16/17 06:00 07/16/17 06:00 07/16/17 06:00 Oxygen Flow Rate (L/min) 1 Oxygen Delivery Method Nasal Cannula Weight: 184 lb 11.958 oz Body Mass Index (BMI) 27.0 Intake and Output for Last 24 Hours 07/14/17 07/15/17 07/16/17 23:59 23:59 23:59 Intake Total 500 / 500 2500 / 2500 266.8 / 266.8 Output Total 1900 / 1900 300 / 300 Balance -1400 / -1400 2500 / 2500 -33.2 / -33.2 Laboratory Tests Past 24 Hrs 07/15/17 07/15/17 07/15/17 07:10 07:10 07:10 WBC 10.0 RBC 3.35 L Hgb 9.6 L Hct 31.3 L MCV 93.4 MCH 28.7 MCHC 30.7 L RDW 16.5 H RDW Differential 56.4 H Plt Count 161 MPV 11.0 PT 17.5 H INR 1.4 Sodium 138 Potassium 4.3 Chloride 103 Carbon Dioxide 32.0 Anion Gap 3 L BUN 42 H Creatinine 0.94 Estim Creat Clear Calc 73.25 Est GFR (MDRD) Af Amer 103 Est GFR (MDRD) Non-Af 85 BUN/Creatinine Ratio 44.7 H Glucose 83 Calcium 8.7 Magnesium 2.2 Digoxin 07/16/17 07/16/17 07/16/17 05:40 05:40 05:40 WBC 8.4 RBC 3.22 L Hgb 9.2 L Hct 30.5 L MCV 94.7 H MCH 28.6 MCHC 30.2 L RDW 16.7 H RDW Differential 58.0 H Plt Count 144 L MPV 10.7 PT 16.3 H INR 1.3 Sodium 141 Potassium 4.6 Chloride 104 Carbon Dioxide 32.0 Anion Gap 5 BUN 34 H Creatinine 0.74 Estim Creat Clear Calc 93.05 Est GFR (MDRD) Af Amer 136 Est GFR (MDRD) Non-Af 113 BUN/Creatinine Ratio 46.0 H Glucose 119 H Calcium 8.4 L Magnesium Digoxin 07/16/17 05:40 WBC RBC Hgb Hct MCV MCH MCHC RDW RDW Differential Plt Count MPV PT INR Sodium Potassium Chloride Carbon Dioxide Anion Gap BUN Creatinine Estim Creat Clear Calc Est GFR (MDRD) Af Amer Est GFR (MDRD) Non-Af BUN/Creatinine Ratio Glucose Calcium Magnesium Digoxin Pending Clinical Impression(s) from Imaging Studies Chest X-Ray 07/10/17 15:34 IMPRESSION: Findings suggesting a mild degree of CHF superimposed on chronic interstitial fibrosis. Electronically Signed: Lm Haddad MD at 15:54 EDT Tel [phone], Service support , Chest CT 07/14/17 11:00 IMPRESSION: Interstitial infiltrates or fibrosis. Regions of bronchiectasis and cystic spaces. 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 Electronically Signed: Travis Steel MD at 12:27 EDT , Service support , Medical Necessity - Tobacco Use Smoking Status: Former smoker - Quit 2008 Tobacco Use: Cigarettes Assessment/Plan Active and Suspected Problems (Last Reviewed 06/08/17 @ 13:42 by Odalys Espinosa NP-Arti) COPD with acute exacerbation (Acute) RECOMMENDATIONS: 1. Continue bronchodilators and steroids. 2. Rate/rhythm control strategy per hospitalist/cardiology. 3. Wean supplemental oxygen to maintain saturations at or above 90%. 4. If the patient's cough becomes productive, send sputum for culture. 5. Perform walking oximetry study prior to consideration for discharge from the hospital. 6. The patient should follow-up in the pulmonary medicine clinic within 2 weeks of his discharge from the hospital. IMPRESSIONS: 1. Acute on chronic hypoxemic respiratory failure/severe COPD/pulmonary hypertension Unclear if the patient's presentation to the hospital truly represents a COPD exacerbation. There were no acute findings noted on plain film chest imaging upon presentation. It may be that he has underlying severe COPD that is not being adequately addressed in addition to potential rheumatoid associated lung disease and pulmonary hypertension contributing. Agree with continuing bronchodilators and steroids for now. Wean supplemental oxygen to maintain saturations at or above 90%. The patient has yet to schedule a follow-up appointment with a flask cleaner. The importance of doing so was stressed to him. Although he did recently complete pulmonary testing through [facility], only spirometry was completed. The patient is in need of obtaining lung volumes and diffusing capacity also. This can be accomplished on an outpatient basis. 2. Personal history of rheumatoid arthritis with suspected lung involvement CT chest revealed chronic interstitial changes with emphysematous/cystic remodeling noted in the right hemithorax along with lower lobe predominant bronchiectasis. It has been recommended now that the patient reestablish a relationship with a flask cleaner. However, he has yet to do so. 3. Obstructive sleep apnea The patient claims that he recently completed a repeat polysomnogram through the [facility] [place] 1 week ago. His report is not available to us today. A follow-up titration study will likely need to be completed on an outpatient basis. 4. Acute kidney injury/hyperkalemia Resolved. [place] to be secondary to recent hemodynamic changes in the setting of atrial fibrillation with RVR, in addition to potential nephrotoxic medications. Nephrology is following. 5. Paroxysmal atrial fibrillation/diabetes/coronary artery disease Complicates care, management, recovery and prognosis. Management of atrial fibrillation and chronic anticoagulation per hospitalist/cardiology. This note was generated with [employer] dictation software. It may contain incorrect words, spelling, and punctuation that were not noted in checking the note before signing. Code Visit Inpatient E&M: 10345 Subs Hosp L2
[2017-07-16] MEDS: Ipratropium/Albuterol Sulfate 3 ML AMPUL.NEB INHALATION ×5 (06:59→22:36)
[2017-07-16 07:02] LABS: Digoxin Level 1.91 ng/mL (0.80-2.00)
--- NOTE | 2017-07-16 07:39 | PN_ITS ---
Patient Problems: Active and Suspected Problems (Last Reviewed 06/08/17 @ 13:42 by Odalys Espinosa NP-C) COPD with acute exacerbation (Acute) Subjective: Patient seen his breathing appears to have stabilized saturation between 95-100 % on 1 L of oxygen his heart rates however continues to be labile. Still remains in A. fib with RVR. Was started on amiodarone drip yesterday as recommended by cardiology was on flecainide discontinued in view of his markedly elevated left atrium. Objective: GENERAL: cooperative HEENT: Clear conjunctiva, NECK; supple, normal thyroid, no distended JVD. CHEST: Diminished to auscultation with bibasilar crackles HEART: Irregular S1 S2, tachycardiac ABDOMEN: soft, non-tender, normoactive bowel sounds, RECTAL: deferred EXTREMITIES: No edema, no clubbing, no cyanosis. CUSTOMER ACCOUNT SPECIALIST: Awake, no lateralizing signs. SKIN: Areas of ecchymosis upper extremities Vitals/I&O's: Vital Signs Temp Pulse Resp BP Pulse Ox 97.2 F L 102 H 18 113/87 H 100 07/16/17 05:00 07/16/17 07:00 07/16/17 07:00 07/16/17 07:00 07/16/17 07:00 Oxygen Flow Rate (L/min) 1 Oxygen Delivery Method Nasal Cannula Weight: 83.8 kg Body Mass Index (BMI) 27.0 Intake and Output for Last 24 Hours 07/14/17 07/15/17 07/16/17 23:59 23:59 23:59 Intake Total 500 / 500 2500 / 2500 266.8 / 266.8 Output Total 1900 / 1900 300 / 300 Balance -1400 / -1400 2500 / 2500 -33.2 / -33.2 Laboratory Results 07/15/17 07:10: PT 17.5 H, INR 1.4 07/15/17 07:10: Sodium 138, Potassium 4.3, Chloride 103, Carbon Dioxide 32.0, Anion Gap 3 L, BUN 42 H, Creatinine 0.94, Estim Creat Clear Calc 73.25, Est GFR (MDRD) Af Amer 103, Est GFR (MDRD) Non-Af 85, BUN/Creatinine Ratio 44.7 H, Glucose 83, Calcium 8.7, Magnesium 2.2 07/16/17 05:40: WBC 8.4, RBC 3.22 L, Hgb 9.2 L, Hct 30.5 L, MCV 94.7 H, MCH 28.6 , MCHC 30.2 L, RDW 16.7 H, RDW Differential 58.0 H, Plt Count 144 L, MPV 10.7 07/16/17 05:40: PT 16.3 H, INR 1.3 07/16/17 05:40: Sodium 141, Potassium 4.6, Chloride 104, Carbon Dioxide 32.0, Anion Gap 5, BUN 34 H, Creatinine 0.74, Estim Creat Clear Calc 93.05, Est GFR ( MDRD) Af Amer 136, Est GFR (MDRD) Non-Af 113, BUN/Creatinine Ratio 46.0 H, Glucose 119 H, Calcium 8.4 L 07/16/17 05:40: Digoxin 1.91 Current Medications Acetaminophen (Tylenol) 650 mg PO Q6H PRN PRN PRN Reason: Mild Pain (scale 0-3)/T>100.7 Last Admin: 07/14/17 21:56 Dose: 650 mg Albuterol Sulfate (Ventolin Aerosols) 2.5 mg INHALATION Q2H PRN PRN PRN Reason: SHORTNESS OF BREATH Albuterol/Ipratropium (Duoneb) 3 ml INHALATION Q4H.RT [facility] Last Admin: 07/16/17 06:59 Dose: 3 ml Cyclobenzaprine HCl (Flexeril) 10 mg PO TID PRN PRN PRN Reason: MUSCLE SPASMS Last Admin: 07/14/17 21:56 Dose: 10 mg Digoxin (Lanoxin) 250 mcg PO DAILY [facility] Doxycycline Monohydrate (Doxycycline) 100 mg PO BID [facility] Last Admin: 07/15/17 21:02 Dose: 100 mg Ergocalciferol (Vitamin D) 50,000 unit PO FR [facility] Last Admin: 07/14/17 07:59 Dose: 50,000 unit [facility] Last Admin: 07/15/17 16:19 Dose: 600 mg Hydroxychloroquine [facility]ate ([facility]il) [facility] Last Admin: 07/15/17 16:19 Dose: 200 mg Amiodarone HCl/Dextrose (Nexterone 360 Mg/200 Ml Bag) 360 mg in 200 mls @ 16.667 mls/hr CONT INF .Q12H [facility] PRN Reason: 0.5 MG/MIN Stop: 07/16/17 09:59 Last Admin: 07/16/17 03:56 Dose: 16.667 mls/hr Magnesium Hydroxide (Milk Of Magnesia) 30 ml PO DAILY PRN PRN PRN Reason: Constipation Nitroglycerin (Nitrostat) 0.4 mg SUBLINGUAL Q5M PRN PRN Reason: chest pain Ondansetron HCl (Zofran) 4 mg IV Q8H PRN PRN PRN Reason: Nausea Pantoprazole Sodium (Protonix) 40 mg PO DAILY [facility] Last Admin: 07/15/17 09:15 Dose: 40 mg Prednisone () 20 mg PO BIDCM [facility] Last Admin: 07/15/17 16:19 Dose: 20 mg Senna/Docusate Sodium (Senokot-S, Alysia-Colace) 1 tablet PO DAILY [facility] Last Admin: 07/15/17 09:15 Dose: Not Given Sodium Chloride () 5 - 30 ml IV UD PRN PRN Reason: SALINE FLUSH Last Admin: 07/15/17 20:38 Dose: 10 ml Warfarin Sodium (Coumadin (Pbkc)) 4 mg PO DAILY@1700 [facility] Last Admin: 07/15/17 16:18 Dose: 4 mg Medical Necessity - Tobacco Use Smoking Status: Former smoker - Quit 2008 Tobacco Use: Cigarettes Assessment/Plan Active and Suspected Problems (Last Reviewed 06/08/17 @ 13:42 by Odalys Espinosa NP-C) COPD with acute exacerbation (Acute) Patient is a 66-year-old gentleman with history of advanced rheumatoid arthritis with chronic lung disease and fibrosis presented with progressive shortness of breath assessment of COPD exacerbation made admitted to a regular nursing floor for further management 1. COPD with acute exacerbation: Patient has been admitted to regular nursing floor managed with bronchodilator treatment, systemic steroid, to biotics. Patient was placed on supplemental oxygen titrated to keep oxygen saturation greater than 90 2. Chronic lung disease with fibrosis secondary to rheumatoid arthritis as well as asbestosis 3. Paroxysmal A. fib with RVR patient is on flecainide as well as systemic anticoagulation with Coumadin INR was supratherapeutic on admission subsequently held with daily monitoring of INR. Cardiology consultation was obtained after patient went into A. fib with RVR and ordered a 2D echo; patient was transferred to PCU on 07/14/2017 due to persistent A. fib. Flecainide discontinued by cardiology amiodarone drip started on 07/15/2017 4. Rheumatoid arthritis advanced patient is on Plaquenil as well as prednisone 5. Coagulopathy secondary to Coumadin use : Resolved 6. DVT prophylaxis patient is on Coumadin no need for additional measures 7. Chronic hypoxic respiratory failure secondary to patient chronic lung disease patient on baseline home O2 8. Acute kidney injury secondary to use of NSAIDs Aldactone as well as Lasix the suspected offending medications discontinued patient started on IV fluids with monitoring of electrolyte consultation placed to Dr. Santiago with nephrology. Patient's FEI resolved 9. Hyperkalemia secondary to use of potassium supplementation; discontinued 10. Physical debility requested except for PT OT 11. Pulmonary hypertension with RVSP of 55 mmHg CODE STATUS full code ECHO Interpretation Summary The estimated ejection fraction is 65 %. Unable to assess diastolic dysfunction due to arrhythmia. The left atrium is severely enlarged. Trivial tricuspid valve insufficiency. Right ventricular systolic pressure estimated to be 55 mmHg. Moderate pulmonary hypertension. Pt appears to be in atrial fib/flutter. There is no comparison study available. Clinical Impression(s) from Imaging Studies Chest X-Ray 07/10/17 15:34 IMPRESSION: Findings suggesting a mild degree of CHF superimposed on chronic interstitial fibrosis. Electronically Signed: Lm Haddad MD at 15:54 EDT Tel [phone], Service support , Chest CT 07/14/17 11:00 IMPRESSION: Interstitial infiltrates or fibrosis. Regions of bronchiectasis and cystic spaces. 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 Electronically Signed: Travis Steel MD at 12:27 EDT , Service support , Active Medications Acetaminophen (Tylenol) 650 mg PO Q6H PRN PRN PRN Reason: Mild Pain (scale 0-3)/T>100.7 Last Admin: 07/14/17 21:56 Dose: 650 mg Albuterol Sulfate (Ventolin Aerosols) 2.5 mg INHALATION Q2H PRN PRN PRN Reason: SHORTNESS OF BREATH Albuterol/Ipratropium (Duoneb) 3 ml INHALATION Q4H.RT [facility] Last Admin: 07/16/17 06:59 Dose: 3 ml Amiodarone HCl (Cordarone) 200 mg PO BID [facility] Last Admin: 07/16/17 08:39 Dose: 200 mg Cyclobenzaprine HCl (Flexeril) 10 mg PO TID PRN PRN PRN Reason: MUSCLE SPASMS Last Admin: 07/14/17 21:56 Dose: 10 mg Diltiazem HCl (Cardizem) 30 mg PO Q6 [facility] Doxycycline Monohydrate (Doxycycline) 100 mg PO BID [facility] Last Admin: 07/15/17 21:02 Dose: 100 mg Ergocalciferol (Vitamin D) 50,000 unit PO [facility] Last Admin: 07/14/17 07:59 Dose: 50,000 unit [facility]) [facility] Last Admin: 07/16/17 08:29 Dose: 600 mg Hydroxychloroquine Sulfate ([facility]aquenil) [facility] Last Admin: 07/16/17 08:29 Dose: 200 mg Amiodarone HCl/Dextrose (Nexterone 360 Mg/200 Ml Bag) 360 mg in 200 mls @ 16.667 mls/hr CONT INF .Q12H [facility] PRN Reason: 0.5 MG/MIN Stop: 07/16/17 09:59 Last Admin: 07/16/17 03:56 Dose: 16.667 mls/hr Magnesium Hydroxide (Milk Of Magnesia) 30 ml PO DAILY PRN PRN PRN Reason: Constipation Nitroglycerin (Nitrostat) 0.4 mg SUBLINGUAL Q5M PRN PRN Reason: chest pain Ondansetron HCl (Zofran) 4 mg IV Q8H PRN PRN PRN Reason: Nausea Pantoprazole Sodium (Protonix) 40 mg PO DAILY [facility] Last Admin: 07/15/17 09:15 Dose: 40 mg [facility]one () [facility] Last Admin: 07/16/17 08:29 Dose: 20 mg Senna/Docusate Sodium (Senokot-S, Alysia-Colace) 1 tablet PO DAILY [facility] Last Admin: 07/15/17 09:15 Dose: Not Given Sodium Chloride () 5 - 30 ml IV UD PRN PRN Reason: SALINE FLUSH Last Admin: 07/15/17 20:38 Dose: 10 ml Warfarin Sodium (Coumadin (Pbkc)) 4 mg PO DAILY@1700 [facility] Last Admin: 07/15/17 16:18 Dose: 4 mg Code Visit Inpatient E&M: 16731 Subs Hosp L2
[2017-07-16] MEDS: Hydroxychloroquine 200 MG Tablet PO ×2 (08:29→17:15)
[2017-07-16] MEDS: Gabapentin 300 MG Capsule 600 MG PO ×2 (08:29→17:15)
[2017-07-16] MEDS: predniSONE 20 MG Tablet PO ×2 (08:29→17:14)
[2017-07-16] MEDS: Amiodarone 200 MG Tablet PO (08:39)
[2017-07-16] MEDS: Senna/Docusate Sodium 1 Tablet PO (09:21)
[2017-07-16] MEDS: Pantoprazole Sodium 40 MG Tablet PO (09:21)
[2017-07-16] MEDS: Doxycycline 100 MG CAPSULE PO ×2 (09:21→22:15)
--- NOTE | 2017-07-16 10:45 | PCM.PN.CARD ---
Subjectve: No complaints. Oxygen saturation drops with ambulation. Atrial fibrillation, ventricular rate still not controlled Objective: Vital Signs Temp Pulse Resp BP Pulse Ox 97.2 F L 112 H 18 102/80 98 07/16/17 05:00 07/16/17 10:00 07/16/17 10:00 07/16/17 10:00 07/16/17 10:27 Oxygen Flow Rate (L/min) [ 2 AMBULATION with Oxygen] Oxygen Flow Rate (L/min) 2 Oxygen Delivery Method Room Air Weight: 83.8 kg Body Mass Index (BMI) 27.0 Intake and Output for Last 24 Hours 07/14/17 07/15/17 07/16/17 23:59 23:59 23:59 Intake Total 500 / 500 2500 / 2500 266.8 / 266.8 Output Total 1900 / 1900 300 / 300 Balance -1400 / -1400 2500 / 2500 -33.2 / -33.2 General: Awake, Alert, Oriented x 3 HEENT: Atraumatic Oral: Moist Mucosa Neck: Supple Lungs: - - Bilateral dry crypts Cardiovascular: Irregular Rhythm, Normal S1, Normal S2 Abdomen: Bowel Sounds Present, Soft Extremities: Bilateral Edema +2 Neurological: No Focal Motor or Sensory Deficit Psych/Mental Status: Appropriate 07/16/17 05:40: WBC 8.4, RBC 3.22 L, Hgb 9.2 L, Hct 30.5 L, MCV 94.7 H, MCH 28.6, MCHC 30.2 L, RDW 16.7 H, RDW Differential 58.0 H, Plt Count 144 L, MPV 10.7 07/16/17 05:40: PT 16.3 H, INR 1.3 07/16/17 05:40: Sodium 141, Potassium 4.6, Chloride 104, Carbon Dioxide 32.0, Anion Gap 5, BUN 34 H, Creatinine 0.74, Est GFR (MDRD) Af Amer 136, Est GFR (MDRD) Non-Af 113, BUN/Creatinine Ratio 46.0 H, Glucose 119 H, Calcium 8.4 L 07/16/17 05:40: Digoxin 1.91 Rhythm: Atrial fibrillation EKG: ECHO: Stress Test: Cardiac Cath: PCI: CT Surgery: Holter monitor: EPS: PPM: CXR: Chest CT Scan: Medical Necessity - Tobacco Use Smoking Status: Former smoker - Quit 2008 Tobacco Use: Cigarettes Assessment/Plan 1. Atrial fibrillation. Ventricular rate still not controlled. Switch to p.o. amiodarone. Started on diltiazem. However patient's blood pressure is borderline. He will need increased doses of diltiazem and starting of beta-marilu to control his ventricular rate. I will therefore start him on midodrine to improve his blood pressure so that he can tolerate increased doses of diltiazem and metoprolol. 2. Coronary calcifications noted on CT chest. Patient without any angina 3. COPD exacerbation. Possible asbestos-related disease on CT scan. Interstitial fibrosis. Manage as per internal medicine. Consider pulmonology consult 4. History of severe rheumatoid arthritis 5. Cirrhotic appearance of liver noted on CT scan. Manage as per internal medicine 6. Borderline blood pressure. Given a fluid bolus. Patient asymptomatic. Likely secondary to steroids
--- NOTE | 2017-07-16 10:48 | PN.CARD_ITS ---
Subjectve: No complaints. Oxygen saturation drops with ambulation. Atrial fibrillation, ventricular rate still not controlled Objective: Vital Signs Temp Pulse Resp BP Pulse Ox 97.2 F L 112 H 18 102/80 98 07/16/17 05:00 07/16/17 10:00 07/16/17 10:00 07/16/17 10:00 07/16/17 10:27 Oxygen Flow Rate (L/min) [ 2 AMBULATION with Oxygen] Oxygen Flow Rate (L/min) 2 Oxygen Delivery Method Room Air Weight: 83.8 kg Body Mass Index (BMI) 27.0 Intake and Output for Last 24 Hours 07/14/17 07/15/17 07/16/17 23:59 23:59 23:59 Intake Total 500 / 500 2500 / 2500 266.8 / 266.8 Output Total 1900 / 1900 300 / 300 Balance -1400 / -1400 2500 / 2500 -33.2 / -33.2 General: Awake, Alert, Oriented x 3 HEENT: Atraumatic Oral: Moist Mucosa Neck: Supple Lungs: - - Bilateral dry crypts Cardiovascular: Irregular Rhythm, Normal S1, Normal S2 Abdomen: Bowel Sounds Present, Soft Extremities: Bilateral Edema +2 Neurological: No Focal Motor or Sensory Deficit Psych/Mental Status: Appropriate 07/16/17 05:40: WBC 8.4, RBC 3.22 L, Hgb 9.2 L, Hct 30.5 L, MCV 94.7 H, MCH 28.6 , MCHC 30.2 L, RDW 16.7 H, RDW Differential 58.0 H, Plt Count 144 L, MPV 10.7 07/16/17 05:40: PT 16.3 H, INR 1.3 07/16/17 05:40: Sodium 141, Potassium 4.6, Chloride 104, Carbon Dioxide 32.0, Anion Gap 5, BUN 34 H, Creatinine 0.74, Est GFR (MDRD) Af Amer 136, Est GFR ( MDRD) Non-Af 113, BUN/Creatinine Ratio 46.0 H, Glucose 119 H, Calcium 8.4 L 07/16/17 05:40: Digoxin 1.91 Rhythm: Atrial fibrillation EKG: ECHO: Stress Test: Cardiac Cath: PCI: CT Surgery: Holter monitor: EPS: PPM: CXR: Chest CT Scan: Medical Necessity - Tobacco Use Smoking Status: Former smoker - Quit 2008 Tobacco Use: Cigarettes Assessment/Plan 1. Atrial fibrillation. Ventricular rate still not controlled. Switch to p.o. amiodarone. Started on diltiazem. However patient's blood pressure is borderline. He will need increased doses of diltiazem and starting of beta- marilu to control his ventricular rate. I will therefore start him on midodrine to improve his blood pressure so that he can tolerate increased doses of diltiazem and metoprolol. 2. Coronary calcifications noted on CT chest. Patient without any angina 3. COPD exacerbation. Possible asbestos-related disease on CT scan. Interstitial fibrosis. Manage as per internal medicine. Consider pulmonology consult 4. History of severe rheumatoid arthritis 5. Cirrhotic appearance of liver noted on CT scan. Manage as per internal medicine 6. Borderline blood pressure. Given a fluid bolus. Patient asymptomatic. Likely secondary to steroids
[2017-07-16] MEDS: dilTIAZem 30 MG Tablet PO ×4 (11:02→22:15)
[2017-07-16] MEDS: Midodrine HCl 5 MG Tablet 10 MG PO ×2 (13:48→22:15)
[2017-07-16] MEDS: Metoprolol Tartrate 25 MG Tablet PO (22:15)
[2017-07-16] MEDS: 0.9% NaCl Peripheral Flush Adult/Peds IV (23:55)
[2017-07-17] VITALS (23 sets, daily range): BP systolic 103–127; BP diastolic 60–87; PULSE 63–112; RESP 12–24; TEMP 36.4–37; O2SAT 95–100
[2017-07-17] MEDS: dilTIAZem 30 MG Tablet PO ×3 (02:27→09:44)
[2017-07-17] MEDS: Ipratropium/Albuterol Sulfate 3 ML AMPUL.NEB INHALATION ×6 (02:38→23:37)
[2017-07-17] MEDS: Midodrine HCl 5 MG Tablet 10 MG PO ×3 (06:18→22:06)
[2017-07-17 06:37] LABS: Anion Gap 4 (5-15); BUN 28 mg/dL (7-18); BUN/Creat Ratio 33.5 RATIO (10-20); Calcium,Total 8.4 mg/dL (8.5-10.1); Chloride 104 mmol/L (98-107); Creatinine, Serum 0.84 mg/dL (0.70-1.30); EST Glomerular Filtration Rate 98 mL/min (>60); Est Glom Filt Rate - Afr Amer 118 mL/min (>60); Estimated Creatinine Clearance 81.97 ml/min; Glucose 133 mg/dL (74-106); Potassium 4.7 mmol/L (3.5-5.1); Sodium Level 138 mmol/L (136-145)
[2017-07-17] MEDS: Gabapentin 300 MG Capsule 600 MG PO ×2 (07:59→16:47)
[2017-07-17] MEDS: predniSONE 20 MG Tablet PO ×2 (08:00→16:47)
[2017-07-17] MEDS: Hydroxychloroquine 200 MG Tablet PO ×2 (08:00→16:47)
[2017-07-17] MEDS: Acetaminophen 325 MG Tablet 650 MG PO (08:08)
--- NOTE | 2017-07-17 08:56 | PCM.PROGNOTE ---
Patient Problems: Active and Suspected Problems (Last Reviewed 06/08/17 @ 13:42 by JONNY Cevallos) COPD with acute exacerbation (Acute) Subjective: Patient was seen and examined. Reports his breathing felt better this morning than it has in a couple of weeks, however then he developed more shortness of breath again after going to the bathroom and has not felt good since. Denies any cough or sputum production. Complains of increased lower extremity edema. He is 100% on 2 L of oxygen, however states he feels better with it on and does not want to be on room air. Patient had an ambulatory pulse ox on 07/16 and desaturated to 80% on room air. He tolerated ambulation on 2 L of oxygen supplementation. He voices concern that he has been here and not getting any better. Objective: Recent lab data reviewed. Patient remains afebrile and hemodynamically stable. He is intermittently tachycardic and remains in A. fib. Patient has a +876 fluid balance for the admission, his weight is up accordingly approximately 13 or 14 pounds. - Physical Exam General: Alert, Oriented x3, Cooperative, No apparent distress, Well developed, Well nourished, - - no conversational dyspnea HEENT: Atraumatic, Normocephalic Oral: Moist Mucosa Neck: Supple, No Nodes, Trachea Midline Lungs: No rhonchi, No wheeze, Diminished, Rales Cardiovascular: Irregular Rate Abdomen: Bowel Sounds Present, Soft, Non Tender, Distended Extremities: No clubbing, No cyanosis, Edema - 3+ pitting bilat LE edema, LE vascular changes Skin: No rashes, No breakdown Musculoskeletal: No Tenderness to Palpation of Joints or Extremities, Arthritic Changes - malalignment of hand joints bilaterally, rheumatoid Lymphatic: No Cervical, Supraclavicular, or Inguinal Adenopathy Neurological: Cranial nerves II-XII grossly intact, Neuro grossly intact, Motor Exam 5/5 strength throughout Psych/Mental Status: Normal Affect, Appropriate Vital Signs Temp Pulse Resp BP Pulse Ox 98.6 F 87 16 112/81 H 100 07/17/17 06:13 07/17/17 07:05 07/17/17 07:05 07/17/17 06:13 07/17/17 07:05 Oxygen Flow Rate (L/min) [ 2 AMBULATION with Oxygen] Oxygen Flow Rate (L/min) 2 Oxygen Delivery Method Nasal Cannula Weight: 185 lb 3.013 oz Body Mass Index (BMI) 27.0 Intake and Output for Last 24 Hours 07/15/17 07/16/17 07/17/17 23:59 23:59 23:59 Intake Total 2500 / 2500 1176.8 / 1176.8 Output Total 300 / 300 Balance 2500 / 2500 876.8 / 876.8 Laboratory Tests Past 24 Hrs 07/17/17 05:55 Sodium 138 Potassium 4.7 Chloride 104 Carbon Dioxide 30.0 Anion Gap 4 L BUN 28 H Creatinine 0.84 Estim Creat Clear Calc 81.97 Est GFR (MDRD) Af Amer 118 Est GFR (MDRD) Non-Af 98 BUN/Creatinine Ratio 33.5 H Glucose 133 H Calcium 8.4 L Medical Necessity - Tobacco Use Smoking Status: Former smoker - Quit 2008 Tobacco Use: Cigarettes Assessment/Plan Active and Suspected Problems (Last Reviewed 06/08/17 @ 13:42 by Odalys Espinosa NP-C) COPD with acute exacerbation (Acute) RECOMMENDATIONS: 1. Continue bronchodilators and steroids. 2. Rate/rhythm control per hospitalist/cardiology. 3. Wean supplemental oxygen to maintain saturations at or above 90%. 4. If the patient's cough becomes productive, send sputum for culture. 5. Encourage incentive spirometer and Acapella. 6. Consider diuretic today, nephrology following 7. Perform walking oximetry study prior to consideration for discharge. 8. The patient should follow-up in the pulmonary medicine clinic within 2 weeks of his discharge from the hospital. IMPRESSIONS: 1. Acute on chronic hypoxemic respiratory failure/severe COPD/pulmonary hypertension Unclear if the patient's presentation to the hospital truly represents a COPD exacerbation. There were no acute findings noted on plain film chest imaging upon presentation. It may be that he has underlying severe COPD that is not being adequately addressed in addition to potential rheumatoid associated lung disease and pulmonary hypertension contributing. Agree with continuing bronchodilators and steroids for now. Wean supplemental oxygen to maintain saturations at or above 90%. The patient has yet to schedule a follow-up appointment with a precision instrument and tool maker. The importance of doing so was stressed to him. Although he did recently complete pulmonary testing through [facility], only spirometry was completed. The patient is in need of obtaining lung volumes and diffusing capacity also. This can be accomplished on an outpatient basis. 2. Personal history of rheumatoid arthritis with suspected lung involvement CT chest revealed chronic interstitial changes with emphysematous/cystic remodeling noted in the right hemithorax along with lower lobe predominant bronchiectasis. It has been recommended now that the patient reestablish a relationship with a precision instrument and tool maker. However, he has yet to do so. 3. Obstructive sleep apnea The patient claims that he recently completed a repeat polysomnogram through the [facility] 1 week ago. His report is not available to us today. A follow-up titration study will likely need to be completed on an outpatient basis. 4. Acute kidney injury/hyperkalemia Improved. [place] to be secondary to recent hemodynamic changes in the setting of atrial fibrillation with RVR, in addition to potential nephrotoxic medications. Nephrology is following. Patient may require diuresis today, has significant LE edema 5. Paroxysmal atrial fibrillation/diabetes/coronary artery disease Complicates care, management, recovery and prognosis. Management of atrial fibrillation and chronic anticoagulation per hospitalist/cardiology. This note was generated with [employer] dictation software. It may contain incorrect words, spelling, and punctuation that were not noted in checking the note before signing.
[2017-07-17] MEDS: Amiodarone 200 MG Tablet PO (09:44)
[2017-07-17] MEDS: Doxycycline 100 MG CAPSULE PO ×2 (09:44→22:05)
[2017-07-17] MEDS: Pantoprazole Sodium 40 MG Tablet PO (09:45)
[2017-07-17] MEDS: Metoprolol Tartrate 25 MG Tablet PO ×2 (09:45→22:05)
[2017-07-17 09:47] LABS: International Normalized Ratio 1.3; Prothrombin Time (Protime)PT. 16.4 SECONDS (11.7-14.9)
--- NOTE | 2017-07-17 11:01 | PCM.PROGNOTE ---
Patient Problems: Active and Suspected Problems (Last Reviewed 06/08/17 @ 13:42 by JONNY Cevallos) COPD with acute exacerbation (Acute) Subjective: Patient was seen and examined today, he complains he does not feel that he is getting appropriate medical care here as he is not improving. I pointed out to the fact that the patient is on only 2 L of oxygen, I went over his multiple medical problems he has including pulmonary hypertension atrial fib, COPD, and pulmonary fibrosis. Cardiology is currently adjusting his medications patient's creatinine is currently normal. Patient's INR is subtherapeutic, his Coumadin has been resumed. - Physical Exam General: Alert, Oriented x3, Cooperative, No apparent distress, Well developed, Well nourished HEENT: Atraumatic, PERRLA, EOMI, Normocephalic Oral: Moist Mucosa Neck: Supple, No JVD, Negative Carotid Bruits, No Nuchal Rigidity, Trachea Midline, Thyroid Normal Size and Texture Lungs: Normal air movement, No rhonchi, No wheeze, Rales - Inspiratory rales at the bases bilaterally Cardiovascular: PMI Normal, Irregular Rate, No rub noted Abdomen: Bowel Sounds Present, Soft, Non Tender, Non-Distended, No hernias noted Extremities: Capillary Refill Less than 3 Seconds, Edema - +2 mm edema is noted in the lower extremities Skin: No rashes, No breakdown Musculoskeletal: No Tenderness to Palpation of Joints or Extremities Neurological: Cranial nerves II-XII grossly intact, Neuro grossly intact, Muscle tone normal, Sensory exam intact to light touch and pain, Coordination normal Psych/Mental Status: Normal Affect, Appropriate, Alert and oriented to time, place, person, mood and affect Vital Signs Temp Pulse Resp BP Pulse Ox 98.6 F 80 16 112/81 H 100 07/17/17 06:13 07/17/17 09:45 07/17/17 07:05 07/17/17 06:13 07/17/17 07:05 Oxygen Flow Rate (L/min) [ 2 AMBULATION with Oxygen] Oxygen Flow Rate (L/min) 2 Oxygen Delivery Method Nasal Cannula Weight: 84 kg Body Mass Index (BMI) 27.0 Intake and Output for Last 24 Hours 07/15/17 07/16/17 07/17/17 23:59 23:59 23:59 Intake Total 2500 / 2500 1176.8 / 1176.8 Output Total 300 / 300 Balance 2500 / 2500 876.8 / 876.8 Laboratory Tests Past 24 Hrs 07/17/17 07/17/17 05:55 05:55 PT 16.4 H INR 1.3 Sodium 138 Potassium 4.7 Chloride 104 Carbon Dioxide 30.0 Anion Gap 4 L BUN 28 H Creatinine 0.84 Estim Creat Clear Calc 81.97 Est GFR (MDRD) Af Amer 118 Est GFR (MDRD) Non-Af 98 BUN/Creatinine Ratio 33.5 H Glucose 133 H Calcium 8.4 L Medical Necessity - Tobacco Use Smoking Status: Former smoker - Quit 2008 Tobacco Use: Cigarettes Assessment/Plan Active and Suspected Problems (Last Reviewed 06/08/17 @ 13:42 by Odalys Espinosa [employer]ADER-C) COPD with acute exacerbation (Acute) #1 acute exacerbation of COPD-continue present treatment, pulmonary medicine is seeing patient #2 pulmonary fibrosis-probably secondary to rheumatoid arthritis and asbestos exposure #3 paroxysmal atrial fibrillation-cardiology is adjusting his medications for rate control #4 rheumatoid arthritis #5 chronic hypoxic respiratory failure #6 pulmonary hypertension #7 anemia-etiology unclear, serum iron studies will be performed #8 acute kidney injury-resolved #9 coronary artery disease #10 obstructive sleep apnea-per patient- patient has been refusing BiPAP therapy at night Code Visit Inpatient E&M: [id number] Subs Hosp L2
--- NOTE | 2017-07-17 11:09 | PN_ITS ---
Patient Problems: Active and Suspected Problems (Last Reviewed 06/08/17 @ 13:42 by JONNY Cevallos) COPD with acute exacerbation (Acute) Subjective: Patient was seen and examined today, he complains he does not feel that he is getting appropriate medical care here as he is not improving. I pointed out to the fact that the patient is on only 2 L of oxygen, I went over his multiple medical problems he has including pulmonary hypertension atrial fib, COPD, and pulmonary fibrosis. Cardiology is currently adjusting his medications patient' s creatinine is currently normal. Patient's INR is subtherapeutic, his Coumadin has been resumed. - Physical Exam General: Alert, Oriented x3, Cooperative, No apparent distress, Well developed, Well nourished HEENT: Atraumatic, PERRLA, EOMI, Normocephalic Oral: Moist Mucosa Neck: Supple, No JVD, Negative Carotid Bruits, No Nuchal Rigidity, Trachea Midline, Thyroid Normal Size and Texture Lungs: Normal air movement, No rhonchi, No wheeze, Rales - Inspiratory rales at the bases bilaterally Cardiovascular: PMI Normal, Irregular Rate, No rub noted Abdomen: Bowel Sounds Present, Soft, Non Tender, Non-Distended, No hernias noted Extremities: Capillary Refill Less than 3 Seconds, Edema - +2 mm edema is noted in the lower extremities Skin: No rashes, No breakdown Musculoskeletal: No Tenderness to Palpation of Joints or Extremities Neurological: Cranial nerves II-XII grossly intact, Neuro grossly intact, Muscle tone normal, Sensory exam intact to light touch and pain, Coordination normal Psych/Mental Status: Normal Affect, Appropriate, Alert and oriented to time, place, person, mood and affect Vital Signs Temp Pulse Resp BP Pulse Ox 98.6 F 80 16 112/81 H 100 07/17/17 06:13 07/17/17 09:45 07/17/17 07:05 07/17/17 06:13 07/17/17 07:05 Oxygen Flow Rate (L/min) [ 2 AMBULATION with Oxygen] Oxygen Flow Rate (L/min) 2 Oxygen Delivery Method Nasal Cannula Weight: 84 kg Body Mass Index (BMI) 27.0 Intake and Output for Last 24 Hours 07/15/17 07/16/17 07/17/17 23:59 23:59 23:59 Intake Total 2500 / 2500 1176.8 / 1176.8 Output Total 300 / 300 Balance 2500 / 2500 876.8 / 876.8 Laboratory Tests Past 24 Hrs 07/17/17 07/17/17 05:55 05:55 PT 16.4 H INR 1.3 Sodium 138 Potassium 4.7 Chloride 104 Carbon Dioxide 30.0 Anion Gap 4 L BUN 28 H Creatinine 0.84 Estim Creat Clear Calc 81.97 Est GFR (MDRD) Af Amer 118 Est GFR (MDRD) Non-Af 98 BUN/Creatinine Ratio 33.5 H Glucose 133 H Calcium 8.4 L Medical Necessity - Tobacco Use Smoking Status: Former smoker - Quit 2008 Tobacco Use: Cigarettes Assessment/Plan Active and Suspected Problems (Last Reviewed 06/08/17 @ 13:42 by Odalys Espinosa [employer]-C) COPD with acute exacerbation (Acute) #1 acute exacerbation of COPD-continue present treatment, pulmonary medicine is seeing patient #2 pulmonary fibrosis-probably secondary to rheumatoid arthritis and asbestos exposure #3 paroxysmal atrial fibrillation-cardiology is adjusting his medications for rate control #4 rheumatoid arthritis #5 chronic hypoxic respiratory failure #6 pulmonary hypertension #7 anemia-etiology unclear, serum iron studies will be performed #8 acute kidney injury-resolved #9 coronary artery disease #10 obstructive sleep apnea-per patient- patient has been refusing BiPAP therapy at night Code Visit Inpatient E&M: [id number] Subs Hosp L2
--- NOTE | 2017-07-17 11:45 | PN.CARD_ITS ---
Subjectve: Continues to complain of shortness of breath with exertion Objective: Vital Signs Temp Pulse Resp BP Pulse Ox 98.6 F 74 16 112/81 H 100 07/17/17 06:13 07/17/17 10:51 07/17/17 10:51 07/17/17 06:13 07/17/17 07:05 Oxygen Flow Rate (L/min) [ 2 AMBULATION with Oxygen] Oxygen Flow Rate (L/min) 2 Oxygen Delivery Method Nasal Cannula Weight: 84 kg Body Mass Index (BMI) 27.0 Intake and Output for Last 24 Hours 07/15/17 07/16/17 07/17/17 23:59 23:59 23:59 Intake Total 2500 / 2500 1176.8 / 1176.8 Output Total 300 / 300 Balance 2500 / 2500 876.8 / 876.8 General: Awake, Alert, Oriented x 3, No Acute Distress HEENT: Atraumatic, Normocephalic Oral: Moist Mucosa Neck: Supple Lungs: - - Dry crypts bilateral bases Cardiovascular: Irregular Rhythm, Normal S1, Normal S2 Abdomen: Bowel Sounds Present, Soft Extremities: Bilateral Edema +1 07/17/17 05:55: Sodium 138, Potassium 4.7, Chloride 104, Carbon Dioxide 30.0, Anion Gap 4 L, BUN 28 H, Creatinine 0.84, Est GFR (MDRD) Af Amer 118, Est GFR ( MDRD) Non-Af 98, BUN/Creatinine Ratio 33.5 H, Glucose 133 H, Calcium 8.4 L 07/17/17 05:55: PT 16.4 H, INR 1.3 Rhythm: Atrial fibrillation with controlled ventricular response : Medical Necessity - Tobacco Use Smoking Status: Former smoker - Quit 2008 Tobacco Use: Cigarettes Assessment/Plan 1. Atrial fibrillation. Ventricular rate better. Start on longer acting diltiazem. Continue metoprolol. Stop amiodarone. Urine management as per internal medicine/pharmacy 2. Coronary calcifications noted on CT chest. Patient without any angina. Further follow-up as outpatient with Dr. Restrepo 3. COPD exacerbation. Possible asbestos-related disease on CT scan. Interstitial fibrosis. Manage as per internal medicine. Consider pulmonology consult 4. History of severe rheumatoid arthritis 5. Cirrhotic appearance of liver noted on CT scan. Manage as per internal medicine 6. Borderline blood pressure. Improved with starting on Midodrin
[2017-07-17] MEDS: Furosemide 40 MG Tablet PO (12:09)
[2017-07-17] MEDS: dilTIAZem CD 240 MG Capsule PO (13:56)
[2017-07-18] VITALS (11 sets, daily range): BP systolic 105–121; BP diastolic 74–78; PULSE 45–94; RESP 12–22; TEMP 36.4–36.7; O2SAT 94–100
[2017-07-18] MEDS: Ipratropium/Albuterol Sulfate 3 ML AMPUL.NEB INHALATION ×3 (04:18→10:56)
[2017-07-18] MEDS: Midodrine HCl 5 MG Tablet 10 MG PO ×2 (05:30→14:36)
[2017-07-18 06:40] LABS: International Normalized Ratio 1.5; Prothrombin Time (Protime)PT. 17.9 SECONDS (11.7-14.9)
[2017-07-18 06:49] LABS: Iron 44 ug/dL (65-175); Iron Binding Capacity,Total 279 ug/dL (250-450); PERCENT IRON SATURATION 15.8 % (15.0-55.0)
[2017-07-18] MEDS: predniSONE 20 MG Tablet PO (07:47)
[2017-07-18] MEDS: Gabapentin 300 MG Capsule 600 MG PO (07:47)
[2017-07-18] MEDS: Hydroxychloroquine 200 MG Tablet PO (07:47)
--- NOTE | 2017-07-18 09:02 | PCM.PROGNOTE ---
Patient Problems: Active and Suspected Problems (Last Reviewed 06/08/17 @ 13:42 by JONNY Cevallos) COPD with acute exacerbation (Acute) Subjective: Patient was seen and examined. Reports his lower extremity edema has minimally improved. Denies any current shortness of breath, cough, or sputum production. He wore the BiPAP overnight between 10 PM and 4 AM. Remains on 2 L of oxygen, however this has been consistently maintaining saturations in the upper 90s-100%. Objective: Recent lab data reviewed. Patient remains afebrile and hemodynamically stable. Pulse has been low this morning from 45-59. Patient has a + 9L fluid balance for the admission, his weight is up accordingly. Home dose of Lasix was restarted 07/17. - Physical Exam General: Alert, Oriented x3, Cooperative, No apparent distress, Well developed, Well nourished, - - no conversational dyspnea HEENT: Atraumatic, Normocephalic Oral: Moist Mucosa Neck: Supple, No Nodes Lungs: No rhonchi, No wheeze, No rales, Diminished Cardiovascular: Normal S1, Normal S2, Irregular Rate Abdomen: Bowel Sounds Present, Soft, Non Tender Extremities: No clubbing, No cyanosis, Edema - improved, 2-3+ bilat LEs Skin: - - vascular changes Musculoskeletal: No Tenderness to Palpation of Joints or Extremities Neurological: Neuro grossly intact Psych/Mental Status: Alert and oriented to time, place, person, mood and affect Vital Signs Temp Pulse Resp BP Pulse Ox 97.5 F L 45 L 16 113/74 99 07/18/17 03:52 07/18/17 07:04 07/18/17 07:03 07/18/17 03:52 07/18/17 07:03 Oxygen Flow Rate (L/min) [ 2 AMBULATION with Oxygen] Oxygen Flow Rate (L/min) 2 Oxygen Delivery Method Nasal Cannula Weight: 184 lb 8.43 oz Body Mass Index (BMI) 27.0 Intake and Output for Last 24 Hours 07/16/17 07/17/17 07/18/17 23:59 23:59 23:59 Intake Total 1176.8 / 1176.8 940 / 940 0 / 0 Output Total 300 / 300 Balance 876.8 / 876.8 940 / 940 0 / 0 Laboratory Tests Past 24 Hrs 07/17/17 07/18/17 07/18/17 05:55 06:05 06:05 PT 16.4 H 17.9 H INR 1.3 1.5 Iron 44 L TIBC 279 Iron Saturation 15.8 Medical Necessity - Tobacco Use Smoking Status: Former smoker - Quit 2008 Tobacco Use: Cigarettes Assessment/Plan Active and Suspected Problems (Last Reviewed 06/08/17 @ 13:42 by JONNY Cevallos) COPD with acute exacerbation (Acute) RECOMMENDATIONS: 1. Continue bronchodilators and steroids. 2. Rate/rhythm control per hospitalist/cardiology. 3. Wean supplemental oxygen to maintain saturations at or above 90%. 4. Encourage incentive spirometer and Acapella. 6. Continue diuretics, will need follow-up lab work as outpatient 7. Perform walking oximetry study prior to consideration for discharge. 8. The patient should follow-up in the pulmonary medicine clinic within 2 weeks of his discharge from the hospital. Our office has requested records from [facility] for recently completed PSG. IMPRESSIONS: 1. Acute on chronic hypoxemic respiratory failure/severe COPD/pulmonary hypertension Unclear if the patient's presentation to the hospital truly represents a COPD exacerbation. There were no acute findings noted on plain film chest imaging upon presentation. It may be that he has underlying severe COPD that is not being adequately addressed in addition to potential rheumatoid associated lung disease and pulmonary hypertension contributing. Agree with continuing bronchodilators and steroids for now. Wean supplemental oxygen to maintain saturations at or above 90%. The patient has yet to schedule a follow-up appointment with a internal grinding machine operator. The importance of doing so was stressed to him. Although he did recently complete pulmonary testing through [facility], only spirometry was completed. The patient is in need of obtaining lung volumes and diffusing capacity also. This can be accomplished on an outpatient basis. 2. Personal history of rheumatoid arthritis with suspected lung involvement CT chest revealed chronic interstitial changes with emphysematous/cystic remodeling noted in the right hemithorax along with lower lobe predominant bronchiectasis. It has been recommended now that the patient reestablish a relationship with a internal grinding machine operator. However, he has yet to do so. 3. Obstructive sleep apnea The patient claims that he recently completed a repeat polysomnogram through the [facility] 1 week ago. His report is not available to us today. A follow-up titration study will likely need to be completed on an outpatient basis. Our office has requested those records. Discussed importance of future compliance with PAP. 4. Acute kidney injury/hyperkalemia Improved. [place] to be secondary to recent hemodynamic changes in the setting of atrial fibrillation with RVR, in addition to potential nephrotoxic medications. Nephrology is following. Patient restarted on his diuretics, will need follow-up outpatient labs. 5. Paroxysmal atrial fibrillation/diabetes/coronary artery disease Complicates care, management, recovery and prognosis. Management of atrial fibrillation and chronic anticoagulation per hospitalist/cardiology. This note was generated with [employer] dictation software. It may contain incorrect words, spelling, and punctuation that were not noted in checking the note before signing.
[2017-07-18] MEDS: Pantoprazole Sodium 40 MG Tablet PO (10:04)
[2017-07-18] MEDS: Doxycycline 100 MG CAPSULE PO (10:04)
[2017-07-18] MEDS: Furosemide 40 MG Tablet PO (10:04)
[2017-07-18] MEDS: dilTIAZem CD 240 MG Capsule PO (10:04)
[2017-07-18] MEDS: Senna/Docusate Sodium 1 Tablet PO (10:05)
[2017-07-18] MEDS: Metoprolol Tartrate 25 MG Tablet PO (10:05)
--- NOTE | 2017-07-18 11:48 | PCM.DC ---
- Discharge Diagnoses Current Active Problems: Current Active and Chronic Problems (Last Reviewed 06/08/17 @ 13:42 by JONNY Cevallos) COPD with acute exacerbation (Acute) You will use the following diet at home:: No restrictions Your food should be the consistency of: Regular Your liquids should be the consistency of: Regular/Thin Discharge Activity: Return to Normal Activity Additional Instructions: get your INR checked this Thurs Allergies/Adverse Reactions: Allergies No Known Allergies Allergy (Verified 07/10/17 15:20) Medications to take at Discharge Ergocalciferol [Vitamin D] 50,000 unit PO FR 05/19/13 Hydroxychloroquine [Plaquenil] 200 mg PO BIDCM 05/19/13 Pantoprazole Sodium [Protonix] 40 mg PO DAILY 05/19/13 Potassium Chloride [K-Dur] 20 meq PO DAILY 05/19/13 Albuterol IH (ProAir) [Proair Hfa] 2 puff INHALATION Q4H PRN PRN 05/19/17 Gabapentin [Neurontin] 600 mg PO BIDCM 05/19/17 Nitroglycerin [Nitrostat] 0.4 mg SUBLINGUAL PRN PRN 05/19/17 Cyclobenzaprine [Flexeril] 10 mg PO TID PRN PRN 07/10/17 Furosemide [Lasix] 40 mg PO DAILY 07/10/17 Diltiazem CD [Cardizem CD] 240 mg PO DAILY #30 cap 07/18/17 Furosemide [Lasix] 40 mg PO DAILY tablet 07/18/17 Ipratropium/Albuterol Sulfate [Duoneb] 3 ml INHALATION 4X/DAY #30 ampul.neb 07/18/17 Metoprolol Tartrate [Lopressor (beta marilu)] 25 mg PO BID #60 tab 07/18/17 Midodrine HCl [Proamatine] 10 mg PO TID #90 tab 07/18/17 Prednisone 5 mg PO BID #90 tablet 07/18/17 Warfarin [Coumadin] 4 mg PO DAILY@1700 tablet 07/18/17 The following prescriptions were given: Diltiazem CD [Cardizem CD] 240 mg PO DAILY #30 cap Metoprolol Tartrate [Lopressor (beta marilu)] 25 mg PO BID #60 tab Prednisone 5 mg PO BID #90 tablet Midodrine HCl [Proamatine] 10 mg PO TID #90 tab Ipratropium/Albuterol Sulfate [Duoneb] 3 ml INHALATION 4X/DAY #30 ampul.neb Primary Care Physician: Jessenia Rios MD [Primary Care Provider] - Please follow up with your Primary Care Physician in: in 3 weeks Please Follow Up With: Augie Lin MD When: in 1-2 weeks Please Follow Up With: Connor Parks MD When: as directed
--- NOTE | 2017-07-18 12:07 | CASEMGMT ---
Pt to be discharged. Call to [facility] and they are aware that pt is being discharged today. D/C summary, instruction, facesheet and resumption of care faxed to [facility] at this time. Lori MENDOZA CM
--- NOTE | 2017-07-18 18:31 | PCM.DC.SUM ---
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 asbestos exposure #3 paroxysmal atrial fibrillation #4 rheumatoid arthritis #5 chronic hypoxic respiratory failure #6 pulmonary hypertension #7 acute kidney injury #8 iron deficiency anemia #9 coronary artery disease #10 obstructive sleep apnea - Secondary Discharge Diagnosis Chronic Problems (Last Reviewed 06/08/17 @ 13:42 by Odalys Espinosa NP-C) Chronic obstructive pulmonary disease (Chronic) CAD (coronary artery disease) (Chronic) CHF (congestive heart failure) (Chronic) Borderline type 2 diabetes mellitus (Chronic) PAF (paroxysmal atrial fibrillation) (Chronic) Rheumatoid arthritis (Chronic) H/O asbestosis (Chronic) Hospital Course and Treatment Operations: None Procedures: 2-D Echocardiogram Summary of Care Provided: The patient is a 66 year old M seen in the emergency room at [facility] with chief complaint of increasing shortness of breath ?1 week. Patient wears oxygen at home at 2 L, he commented he had to increase his oxygen to 4 L to avoid being short of breath. Evaluation in the emergency room showed the patient to be in atrial fibrillation with a ventricular rate of 99 bpm, chemistries were unremarkable, beta natruretic peptide was 80, chest x-ray showed evidence of chronic interstitial fibrosis. INR was elevated at 3.7. Patient was given aerosol treatments in the emergency room but was unable to maintain his pulse ox on his home oxygen setting and it was felt that he should be admitted for COPD exacerbation. Patient was given Solu-Medrol IV also in the emergency room. Patient was admitted to PCU, maintained on aerosol treatments, and was seen in consultation by pulmonary medicine. 2 days after his admission, his creatinine increased and he was seen by nephrology who adjusted his fluids and diuretics. Patient's creatinine then dropped back to normal. Patient was maintained on IV corticosteroids and aerosol treatments and was transitioned to oral prednisone. Iron studies were obtained which showed the patient had an iron deficiency anemia. He was also seen in consultation by cardiology and had an echocardiogram performed which showed a preserved ejection fraction with evidence of pulmonary hypertension. Patient's cardiac medications were adjusted for optimal rate control. Patient improved during his hospital stay, on 07/18/17, patient was seen and examined felt to be in stable condition for discharge home Discharge Activity: Return to Normal Activity Home Medications: Medications to take at Discharge Ergocalciferol [Vitamin D] 50,000 unit PO FR 05/19/13 Hydroxychloroquine [Plaquenil] 200 mg PO BIDCM 05/19/13 Pantoprazole Sodium [Protonix] 40 mg PO DAILY 05/19/13 Potassium Chloride [K-Dur] 20 meq PO DAILY 05/19/13 Albuterol IH (ProAir) [Proair Hfa] 2 puff INHALATION Q4H PRN PRN 05/19/17 Gabapentin [Neurontin] 600 mg PO BIDCM 05/19/17 Nitroglycerin [Nitrostat] 0.4 mg SUBLINGUAL PRN PRN 05/19/17 Cyclobenzaprine [Flexeril] 10 mg PO TID PRN PRN 07/10/17 Furosemide [Lasix] 40 mg PO DAILY 07/10/17 Diltiazem CD [Cardizem CD] 240 mg PO DAILY #30 cap 07/18/17 Furosemide [Lasix] 40 mg PO DAILY tablet 07/18/17 Ipratropium/Albuterol Sulfate [Duoneb] 3 ml INHALATION 4X/DAY #30 ampul.neb 07/18/17 Metoprolol Tartrate [Lopressor (beta marilu)] 25 mg PO BID #60 tab 07/18/17 Midodrine HCl [Proamatine] 10 mg PO TID #90 tab 07/18/17 Prednisone 5 mg PO BID #90 tablet 07/18/17 Warfarin [Coumadin] 4 mg PO DAILY@1700 tablet 07/18/17 Following Prescrptions Were Given to Patient: Diltiazem CD [Cardizem CD] 240 mg PO DAILY #30 cap Metoprolol Tartrate [Lopressor (beta marilu)] 25 mg PO BID #60 tab Prednisone 5 mg PO BID #90 tablet Midodrine HCl [Proamatine] 10 mg PO TID #90 tab Ipratropium/Albuterol Sulfate [Duoneb] 3 ml INHALATION 4X/DAY #30 ampul.[facility] Primary Care Physician: Jessenia Rios MD [Primary Care Provider] - Please follow up with your Primary Care Physician in: in 3 weeks Please Follow Up With: Augie Lin MD When: in 1-2 weeks Please Follow Up With: Connor Parks MD When: as directed Please Follow Up With: Jessenia Rios MD When: 3 weeks Disposition: Home Minutes spent on discharge:: 32 Patient Condition:: Stable Medical Necessity - Tobacco Use Smoking Status: Former smoker - Quit 2009 Tobacco Use: Cigarettes Meaningful Use Info Meaningful Use Diagnoses (Choose all that apply): None applicable Code Visit Inpatient E&M: 91617 Disch Hosp
--- NOTE | 2017-07-21 11:55 | CASEMGMT ---
KELLY VALDEZ DC F/U phone call. Introduced role of CM to patient's . She states she is concerned as pt is lightheaded today and still has edema in his feet. KELLY VALDEZ reviewed medications with . Pt is taking as prescribed including Lasix 40 mg po daily. F/U appointments had been made with cardiology and PCP, but pt not until next week. -KELLY VALDEZ suggested call negative restorer's nurse, describe his symptoms, edema and weight. Pt may need to be seen or medications adjusted. KELLY VALDEZ offered to assist, however states she is comfortable calling. -no other concerns noted. will call cardiology office after our call is concluded. Jossie WADE RN ACM
== END 2017-07-18 14:41 | disposition home or self-care (01) | DRG 190 ==
LOC: ED 17:17 → MS3 18:14 → PCU 07-15 04:31
PROVIDERS: Internal Medicine; Internal Medicine Cardiovascular Disease; Internal Medicine Nephrology; Emergency Provider Emergency Medicine; Family Provider Internal Medicine; PCP Internal Medicine; Visit Provider Internal Medicine
DX: J44.1 Chronic obstructive pulmonary disease with (acute) exacerbation (principal); J96.21 Acute and chronic respiratory failure with hypoxia; N17.9 Acute kidney failure, unspecified; I50.32 Chronic diastolic (congestive) heart failure; E87.1 Hypo-osmolality and hyponatremia; Z87.891 Personal history of nicotine dependence; Z99.81 Dependence on supplemental oxygen; I48.0 Paroxysmal atrial fibrillation; J61 Pneumoconiosis due to asbestos and other mineral fibers; M05.142 Rheumatoid lung disease with rheumatoid arthritis of left hand; M05.141 Rheumatoid lung disease with rheumatoid arthritis of right hand; N14.0 Analgesic nephropathy; T39.395A Adverse effect of other nonsteroidal anti-inflammatory drugs [NSAID], initial encounter; Y92.009 Unspecified place in unspecified non-institutional (private) residence as the place of occurrence of the external cause; I25.10 Atherosclerotic heart disease of native coronary artery without angina pectoris; E11.9 Type 2 diabetes mellitus without complications; Z79.01 Long term (current) use of anticoagulants; G47.10 Hypersomnia, unspecified; Z79.51 Long term (current) use of inhaled steroids; Z79.52 Long term (current) use of systemic steroids; Z79.899 Other long term (current) drug therapy; E87.5 Hyperkalemia; R53.81 Other malaise; G47.33 Obstructive sleep apnea (adult) (pediatric); K74.60 Unspecified cirrhosis of liver; D50.9 Iron deficiency anemia, unspecified; I27.20 Pulmonary hypertension, unspecified
CPT/HCPCS: 36415; 71045; 71250; 80048; 80053; 80162; 82570; 83540; 83550; 83735; 83880; 84300; 84484; 85025; 85027; 85610; 93005; 93306; 94002; 94003; 94640; 94667; 94668; 97110; 97116; 97162; 97165; 97530; 97535; 99251; 99285; J7030; J7040; J7050; A4216; G0463; J1940

== ENCOUNTER 2017-07-26 21:21 | Emergency (ER) | payer MEDICARE, SELFPAY ==
[2017-07-26] VITALS (8 sets, daily range): BP systolic 124–169; BP diastolic 75–98; PULSE 60–119; RESP 12–35; TEMP 38.2; O2SAT 96–100; BMI 33.4
--- NOTE | 2017-07-26 21:36 | EKG12_ITS ---
Test Reason : SHORTNESS OF BREATH Blood Pressure : / mmHG Vent. Rate : 110 BPM Atrial Rate : 107 BPM P-R Int : 000 ms QRS Dur : 092 ms QT Int : 358 ms P-R-T Axes : 000 138 025 degrees QTc Int : 484 ms Atrial fibrillation Low voltage QRS (limb leads) Poor R wave progression Nonspecific ST abnormality Abnormal ECG Confirmed by NEY SAWYER, SOPHIA ([id number]), photographic editor RADHA BAL ([id number]) on 07/28/2017 10:58:04 AM Referred By: GEOVANY Confirmed By:SOPHIA BREWSTER MD
--- NOTE | 2017-07-26 21:41 | RAD_ITS ---
STUDY: X-RAY CHEST REASON FOR EXAM: Male, 67 years old. Shortness of breath TECHNIQUE: Single AP portable view of the chest. COMPARISON: Prior study of 07/10/2017 FINDINGS: bus monitor leads are present. There are diffuse chronic fibrotic changes of the lungs, similar to the previous study. There are calcified right upper hemithoracic pleural plaques. Normal size heart. Normal mediastinum and jose. Normal visualized pulmonary arteries. Normal visualized aortic arch and descending thoracic aorta. Normal visualized thoracic spine. Normal visualized ribs, clavicles, and shoulders. There is no demonstrated abnormality of the visualized soft tissue structures of the upper abdomen. RAD/Chest 1 View (Portable) IMPRESSION: Diffuse chronic fibrotic changes of the lungs, similar to the previous study. Calcified right upper hemithoracic pleural plaques. Electronically Signed: Bora Wilson MD at 22:16 EDT , Service support ,
[2017-07-26 21:50] LABS: Absolute Lymphocyte Count 0.75 X10^3/ul (0.83-4.51); Absolute Neutrophil Count 18.5 X10^3/uL (2.0-7.7); Basophil# 0.01 X10^3/uL; Eosinophil# 0.02 X10^3/uL; Eosinophils% 0.1 % (0-5); Hematocrit 39.6 % (40-54); Hemoglobin 12.1 g/dl (13.0-16.5); Lymphocyte # 0.75 X10^3/ul (4.0); Lymphocyte % 3.6 % (19-41); Mean Corp Hgb Conc 30.6 g/gl (32-36); Mean Corpuscular Hgb 29.3 pg (27.0-32.0); Mean Corpuscular Volume 95.9 fL (80-94); Mean Platelet Vol. 12.2 fl (6.2-12.0); Monocyte# 1.61 X10^3/uL; Monocyte% 7.7 % (0-10); Neutrophil # 18.48 X10^3/uL (2.7-7.7); Neutrophil % 87.9 % (47-70); Platelet Count 138 K/mm3 (150-450); RBC Distribution Width CV 17.7 % (11.6-14.6); RBC Distribution Width SD 61.5 fl (35.1-43.9); Red Blood Count 4.13 M/mm3 (4.6-6.2)
[2017-07-26 21:51] LABS: Differential Indicated SCAN CRITERIA MET; POSITIVE COUNT NO; POSITIVE DIFFERENTIAL YES; POSITIVE MORPHOLOGY NO
[2017-07-26 21:55] LABS: International Normalized Ratio 1.6; Prothrombin Time (Protime)PT. 18.9 SECONDS (11.7-14.9)
[2017-07-26] MEDS: Ipratropium/Albuterol Sulfate 3 ML AMPUL.NEB INHALATION (21:56)
[2017-07-26 22:02] LABS: Anion Gap 5 (5-15); BUN 40 mg/dL (7-18); BUN/Creat Ratio 34.2 RATIO (10-20); Calcium,Total 8.8 mg/dL (8.5-10.1); Chloride 96 mmol/L (98-107); Creatinine, Serum 1.17 mg/dL (0.70-1.30); EST Glomerular Filtration Rate 66 mL/min (>60); Est Glom Filt Rate - Afr Amer 80 mL/min (>60); Estimated Creatinine Clearance 49.98 ml/min; Glucose 117 mg/dL (74-106); Potassium 4.8 mmol/L (3.5-5.1); Sodium Level 137 mmol/L (136-145)
[2017-07-26 22:04] LABS: Anisocytosis RARE; Differential Comment SEE COMMENTS; Macrocytosis RARE; Platelet Estimate SLT DEC (ADEQ)
[2017-07-26] MEDS: MethylPREDNISolone 125 MG/2 ML Vial IV (22:05)
[2017-07-26 22:13] LABS: Lactic Acid 1.5 mmol/L (0.4-2.0)
[2017-07-26 22:26] LABS: Allen Test POS; Base Excess 13 mmol/L (-2 to +2); Bicarbonate 35.2 mmol/L (22-26); Blood Gas Specimen Type ART; EPAP 10; FI02 18; IPAP 18; PO2 75 mmHG (75-100); RR 12; SITE L Radial; SO2 97 % (95-99); Time Given 2215; Total Carbon Dioxide 36 mmol/L; pCO2 36.7 mmHg (35-45); pH 7.59 (7.35-7.45)
[2017-07-26 22:29] LABS: BNP,B-Type NATRIURETIC PEPTIDE 151.1 pg/mL (0-100)
[2017-07-26] MEDS: levoFLOXacin IV 750 MG/150 ML BAG 100 MG IV (23:17)
--- NOTE | 2017-07-26 23:31 | ED.VISSUMM ---
- ER Visit Summary Date of Service: 07/26/17 Chief Complaint: Shortness of breath History of Present Illness: The patient is a [address] Rios, Dr. Parks, and Dr. Augie Lin. Patient has a complicated reading sent medical history. He was admitted here July 10 - July 18. He was discharged and was feeling well. Patient was then admitted at [facility] from July 21 - July 25. He was discharged yesterday and is feeling well. Patient reports the shortness of breath began again today. It is severe. He has a cough that is productive brown sputum that began yesterday. He has had chills, but no fever. He denies any chest pain. Patient does have a history of COPD, CHF, pulmonary fibrosis due to rheumatoid arthritis and asbestosis, obstructive sleep apnea, pulmonary hypertension, and chronic hypoxic respiratory failure and is on 2 L of home O2. Physical Examination: Vitals: 100.8, 134/98, 108, 19, 96% on BiPAP. Squad reports that his pulse ox was in the 70s at home on his 2 L. General: Well-nourished and well-developed. Head: Normocephalic atraumatic. Neck: Supple, no lymphadenopathy. No JVD. Nontender. Cardiovascular: Irregular tachycardic rhythm with a 2 out of 6 systolic murmur. Respiratory: Moderate respiratory distress. Moderate wheezing bilaterally with decreased air movement. Abdominal: Soft, nontender, nondistended, normal bowel sounds. No guarding, rebound, or peritoneal signs. Back: Nontender. Extremities: Nontender, 2+ pitting edema of his lower extremity bilaterally with chronic venous stasis changes. Skin: Normal color, no rash. Neurologic: Alert and oriented ?3. Cranial nerves II through XII are intact. Normal strength and sensation. Psych: Normal affect. Test Results: EKG is A. fib at 110 with no acute changes. Initial troponin 0 0.034. PT LATIN TEACHER is 151.1. Chem-7 is more for chloride of 96, CO2 36, BUN 40, glucose 117. CBC is marked for white count of 21.0 (he is on steroids) H&H 12.1 39.6, 7 neutrophils 88, lymphs lites of 4. Chest x-ray shows diffuse chronic fibrotic changes and is similar to prior x-rays. Lactic acid is 1.5. ABG shows a pH of 7.59 with a PCO2 36.7 and a PO2 of 75. Emergency Department Course and Treatment: Patient with history of albuterol and Atrovent aerosols. Is given Solu-Medrol IV. He was placed on BiPAP and states he feels much improved. He was given a dose of Levaquin IV. Treatment Plan: The patient has been admitted to [facility] for the past 15 days. He is asking for transfer to a tertiary care center which I feels a very reasonable course of action. He is discussed with Dr. Arambula, and [facility], his hospital of choice. He has been accepted in transfer. Disposition: Transferred in improved but serious condition. Impression: 1. Acute on chronic respiratory failure. 2. History of COPD. 3. Pulmonary fibrosis. 4. History of CHF. 5. History of pulmonary type hypertension. 6. History of obstructive sleep apnea. 7. Atrial fibrillation with RVR. 8. Critical care time 30 minutes. This note was generated with [employer] dictation software. It may contain incorrect words, spelling, and punctuation that were not noted in review of the chart prior to signing ED Disposition - Plan for ED Patient: Chief Complaint: Shortness of Breath Referrals: Jessenia Rios MD [Primary Care Provider] -
[2017-07-26 23:38] LABS: Digoxin Level 0.94 ng/mL (0.80-2.00)
--- NOTE | 2017-07-26 23:38 | ED.DCSUM_ITS ---
- ER Visit Summary Date of Service: 07/26/17 Chief Complaint: Shortness of breath History of Present Illness: The patient is a [address] Rios, Dr. Parks, and Dr. Augie Lin. Patient has a complicated reading sent medical history. He was admitted here July 10 - July 18. He was discharged and was feeling well. Patient was then admitted at [facility] from July 21 - July 25. He was discharged yesterday and is feeling well. Patient reports the shortness of breath began again today. It is severe. He has a cough that is productive brown sputum that began yesterday. He has had chills, but no fever. He denies any chest pain. Patient does have a history of COPD, CHF, pulmonary fibrosis due to rheumatoid arthritis and asbestosis, obstructive sleep apnea, pulmonary hypertension, and chronic hypoxic respiratory failure and is on 2 L of home O2. Physical Examination: Vitals: 100.8, 134/98, 108, 19, 96% on BiPAP. Squad reports that his pulse ox was in the 70s at home on his 2 L. General: Well-nourished and well-developed. Head: Normocephalic atraumatic. Neck: Supple, no lymphadenopathy. No JVD. Nontender. Cardiovascular: Irregular tachycardic rhythm with a 2 out of 6 systolic murmur. Respiratory: Moderate respiratory distress. Moderate wheezing bilaterally with decreased air movement. Abdominal: Soft, nontender, nondistended, normal bowel sounds. No guarding, rebound, or peritoneal signs. Back: Nontender. Extremities: Nontender, 2+ pitting edema of his lower extremity bilaterally with chronic venous stasis changes. Skin: Normal color, no rash. Neurologic: Alert and oriented ?3. Cranial nerves II through XII are intact. Normal strength and sensation. Psych: Normal affect. Test Results: EKG is A. fib at 110 with no acute changes. Initial troponin 0 0.034. PT TELESERVICES REPRESENTATIVE is 151.1. Chem-7 is more for chloride of 96, CO2 36, BUN 40, glucose 117. CBC is marked for white count of 21.0 (he is on steroids) H&H 12.1 39.6, 7 neutrophils 88, lymphs lites of 4. Chest x-ray shows diffuse chronic fibrotic changes and is similar to prior x-rays. Lactic acid is 1.5. ABG shows a pH of 7.59 with a PCO2 36.7 and a PO2 of 75. Emergency Department Course and Treatment: Patient with history of albuterol and Atrovent aerosols. Is given Solu-Medrol IV. He was placed on BiPAP and states he feels much improved. He was given a dose of Levaquin IV. Treatment Plan: The patient has been admitted to [facility] for the past 15 days. He is asking for transfer to a tertiary care center which I feels a very reasonable course of action. He is discussed with Dr. Arambula, and [facility], his hospital of choice. He has been accepted in transfer. Disposition: Transferred in improved but serious condition. Impression: 1. Acute on chronic respiratory failure. 2. History of COPD. 3. Pulmonary fibrosis. 4. History of CHF. 5. History of pulmonary type hypertension. 6. History of obstructive sleep apnea. 7. Atrial fibrillation with RVR. 8. Critical care time 30 minutes. This note was generated with [employer] dictation software. It may contain incorrect words, spelling, and punctuation that were not noted in review of the chart prior to signing ED Disposition - Plan for ED Patient: Chief Complaint: Shortness of Breath Referrals: Jessenia Rios MD [Primary Care Provider] -
[2017-07-27] VITALS: BP 110/88; PULSE 91; RESP 25; TEMP 37.7; O2SAT 99
[2017-07-27 00:03] VITALS: BP 110/88; PULSE 91; RESP 24; O2SAT 97
[2017-07-27 13:15] LABS: Pathologist Review Reviewed
== END 2017-07-27 00:39 | disposition short-term general hospital (02) ==
PROVIDERS: Emergency Provider Emergency Medicine; Family Provider Internal Medicine; PCP Internal Medicine
DX: J96.21 Acute and chronic respiratory failure with hypoxia (principal); J84.10 Pulmonary fibrosis, unspecified; M05.10 Rheumatoid lung disease with rheumatoid arthritis of unspecified site; J61 Pneumoconiosis due to asbestos and other mineral fibers; J44.9 Chronic obstructive pulmonary disease, unspecified; I48.0 Paroxysmal atrial fibrillation; I50.9 Heart failure, unspecified; I27.20 Pulmonary hypertension, unspecified; G47.33 Obstructive sleep apnea (adult) (pediatric); Z99.81 Dependence on supplemental oxygen; I25.10 Atherosclerotic heart disease of native coronary artery without angina pectoris; E11.9 Type 2 diabetes mellitus without complications; Z79.01 Long term (current) use of anticoagulants; Z79.52 Long term (current) use of systemic steroids; Z79.51 Long term (current) use of inhaled steroids; Z79.899 Other long term (current) drug therapy
CPT/HCPCS: 36600; 71045; 80048; 80162; 82803; 83605; 83880; 84484; 85025; 85610; 87040; 93005; 94002; 94640; 96365; 96375; 99285; J7030; J7050; A4216